=== PATIENT | male | born 1970 | race Hispanic/Latino ===

== ENCOUNTER 2024-08-29 22:27 | Emergency (ER) | payer BC, SELFPAY ==
[2024-08-29 22:27] VITALS: BP 136/75; PULSE 88; RESP 16; TEMP 36.8; O2SAT 98; BMI 29.0
--- NOTE | 2024-08-29 23:25 | EDS_ITS ---
HPI History of Present Illness HPI Narrative: 53-year-old male no significant past medical or surgical history. [id number]. Was at work today tripped try to catch himself when he grabbed the machine to keep himself upright he cut his left hand on the ring and small finger on the dorsal side at the PIP. No other injuries. States his tetanus is up-to-date 4 years ago when he still lived in [place]. Denies any other complaints or injuries. Chief Complaint: Laceration Informant: patient Occured/Mechanism Mechanism/Context: Yes injury Onset/Context/Timing Onset: Today Context: Sudden Onset Timing: Continuous Current Severity: Mild Maximum Severity: Mild Associated Symptoms Associated Symptoms: Negative for Parasthesia, Weakness or Loss of Funtion Narrative Narrative: 53-year-old male does not speak Chilean. 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 He injured his left hand causing a laceration of the small and ring finger at work tonight. Tetanus up-to-date. Tetanus Immunization: <5 years Prior similar symptoms: No Recent Illness/Hospitalization: No PFSH PFSH Medical History no medical history no medical history Allergy/AdvReac Type Severity Reaction Status Date / Time No Known Allergies Allergy Verified 08/29/24 22:29 no surgical history Social History Smoking Status: Unknown if ever smoked ROS ROS ED ROS Narrative Denies recent illness. Constitutional Constitutional ED: Denies chills or fever(s) Eyes Eyes: Denies blurry vision ENT ENT ED: Denies ear pain Cardiovascular Cardiovascular: Denies chest pain Respiratory/Chest Respiratory/Chest: Denies cough Gastrointestinal Gastrointestinal: Denies abdominal pain Genitourinary Genitourinary ED: Denies dysuria Musculoskeletal Musculoskeletal: Denies back pain Integumentary Denies abscess Neurologic Neurologic: Denies headache(s) Psychiatric Psychiatric: Denies anxiety Endocrine Endocrinology: Denies cold intolerance Hematologic/Lymphatic Hematologic/Lymphatic: Denies easy bleeding Allergic/Immunologic Allergic/Immunologic ED: Denies mouth swelling EXAM Physical Exam Narrative Exam Narrative: Well-appearing middle-age male. Vital signs are stable afebrile. H EENT exam unremarkable atraumatic. Pupils round react light. No trauma. No tenderness. No hematoma. Neck nontender. Back nontender. Lungs clear to auscultation bilaterally. Heart regular rate rhythm rate about 88 no murmur. Chest wall ribs nontender. Abdomen soft nontender. Moving all 4 extremities. Neuro vascular intact. Full range of motion. No deformity. Dorsum of his left hand left small and ring finger on the PIP he has 2 lacerations 1 on each finger. The left small finger is a flap laceration about 3 inches in length. The left ring finger is more linear over the PIP and about 1-1/2 to 2 inches in length. Both have mild bleeding. He has full flexion extension. Normal touch sensation. There is no involvement of the joint, bone or extensor tendon. I do not believe there is any involvement of the neurovascular bundle of the digital nerve or artery. Const Vital Signs: 08/29/24 22:27 Temperature 98.2 F Temperature Source Oral Pulse Rate 88 Respiratory Rate 16 Blood Pressure 136/75 H Blood Pressure Mean 95 Pulse Ox 98 Oxygen Delivery Method Room Air Positive well nourished and well developed; Negative for cachectic, contractures or unkempt General Appearance ED: well developed and NAD; Negative for unkempt, cachectic, contractures, cyanotic or diaphoretic Nutritional Appearance: Negative for cachectic HEENT Reports moist mucous membranes normocephalic and atraumatic Eyes PERRL and EOMs intact bilaterally Neck full ROM and supple Chest Wall inspection of chest normal and palpation of chest normal Resp normal respiratory effort and clear to auscultation bilaterally Cardio regular rate, regular rhythm, S1 normal heart sound, S2 normal heart sound and no murmurs GI non-tender, non-distended and no masses Back/Spine no CVA tenderness Extremity full ROM; Negative for normal to inspection Extremity Narrative: Left hand. Dorsum. Left small finger dorsum of the PIP is a flap laceration. Shape like a C. Approximately 3 inches in length. Involves the skin and subcu tissue. No joint. No extensor tendon involvement. Full flexion extension and distal touch sensation. Mild bleeding. Left ring finger dorsum PIP linear laceration about 1/2 to 2 inches. Small bleeding. No foreign body. No tendon or joint involvement. Distally neurovascular intact. Full flexion extension of both. General Extremety ED: Negative for edema General Extremity: Negative for edema Neuro oriented x3, CN's II-XII intact bilaterally, moves all extremities, no focal motor deficits and no sensory deficits noted Sensorium / Orientation: alert, oriented to person, oriented to place and oriented to time Motor Exam: strength 5/5 throughout Psych mental status grossly normal Appearance: Negative for unkempt Skin Lesions: no lesions Rashes: no rashes Trauma: laceration MDM MDM MDM Narrative Medical decision making narrative: 53-year-old male laceration dorsum left ring and small finger. Both were local anesthetized with lidocaine. Both were explored both involve the skin and subcu tissue. Both were cleaned with Shur-Clens. Washed with saline and irrigated. Both were closed using 4-0 Ethilon sutures. The left small finger laceration required 6 simple erupted 4-0 Ethilon sutures. The left ring finger required 3 simple interrupted 4-0 Ethilon sutures. The small finger laceration is about 3 inches. The ring finger laceration was about 2 inches. History & Record Review Discussion w/independent historian: Patient Procedures Lacerations Left small finger laceration repair:: Length: 3 in Depth: Sub Q Shape: Flap Prep: Shure-Clens Laceration repair: Irrigated, Lidocaine, Local and Skin sutures Number of Sutures/[place]: 6 Suture Information: Ethilon, Simple and 4-0 Left ring finger laceration repair:: Length: 2 in Depth: Sub Q Shape: Linear Prep: Shure-Clens Laceration repair: Irrigated, Lidocaine, Local and Skin sutures Number of Sutures/[place]: 3 Suture Information: Ethilon, Simple and 4-0 Discharge Plan Triage Chief Complaint: Laceration ED Provider: Filippo Chery Dx/Rx/DC Orders Clinical Impression: Encounter related to worker's compensation claim, Laceration of left ring finger Instructions: ED Laceration, Hand: All Closures Primary Care Provider: Care Physician,No Primary Referrals: Corporate,Care [Group of Physicians] - 10 Day for suture removal Care Physician,No Primary [Primary Care Provider] - Activity Restrictions/Additional Instructions: Clean your hands thoroughly twice a day with soap and water. Keep dry and clean. Do not let it soak in any dirty water. Any signs of infection such as swelling, pus, fever, red streaks or swelling with redness return. Stitches out in 10 days. Clean daily. Apply antibiotic ointment daily. Keep clean and covered at work. Print Language: Macedonian Disposition Disposition: Home, Self Care
--- NOTE | 2024-08-29 23:34 | ED.RN ---
ATTEMPTED TO CALL [employer] MYSELF AND WAS UNABLE TO REACH A WORKERS COMPENSATION CLAIMS ASSISTANT OR LEAVE A MESSAGE. PT. 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 PT. GIVEN CORBY.
[2024-08-29] MEDS: Lidocaine 1% (20 ml mdv) 20 ML Vial INFILT (23:42)
--- NOTE | 2024-08-29 23:45 | ED.RN ---
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
== END 2024-08-29 23:46 | disposition home or self-care (01) ==
PROVIDERS: Emergency Provider Emergency Medicine; Visit Provider Emergency Medicine
DX: S61.215A Laceration without foreign body of left ring finger without damage to nail, initial encounter (principal); S61.217A Laceration without foreign body of left little finger without damage to nail, initial encounter; W01.198A Fall on same level from slipping, tripping and stumbling with subsequent striking against other object, initial encounter; Y99.0 Civilian activity done for income or pay; Z23 Encounter for immunization
CPT/HCPCS: 12002; 99284

== ENCOUNTER 2024-11-08 04:52 | Observation (INO) | payer BC, SELFPAY ==
[2024-11-08] VITALS (17 sets, daily range): BP systolic 105–130; BP diastolic 69–90; PULSE 67–83; RESP 14–18; TEMP 36.5–36.9; O2SAT 95–100; BMI 31.6
--- NOTE | 2024-11-08 05:06 | RAD_ITS ---
PROCEDURE: CHEST 1 VIEW REASON FOR EXAM: Headache. Dizziness. TECHNIQUE: AP portable view of the chest. COMPARISON: None FINDINGS: Intermediate to low lung volumes. Minimal atelectasis within the lung bases. No focal airspace consolidation, pneumothorax or pleural effusion is seen. Remaining lung markings otherwise appears clear. Heart size and great vessels are within normal limits. The osseous thorax appears intact. EKG wires overlie the chest. RAD/Chest 1 View IMPRESSION: Intermediate to low lung volumes. No focal airspace consolidation. Reading Location: [facility]
--- NOTE | 2024-11-08 05:06 | CT_ITS ---
PROCEDURE: STROKE BRAIN/HEAD WITHOUT CONT REASON FOR EXAM: Neuro deficits. Headache. Dizziness. Nausea. TECHNIQUE: Axial CT images of the head performed without IV contrast enhancement. Sagittal and coronal reconstructed images were performed for better visualization of the horizontal structures. COMPARISON: None. FINDINGS: There is no evidence of mass lesion, midline shift, or intracranial hemorrhage. The ventricles and extra-axial spaces are age-appropriate. Trace chronic microvascular ischemic changes involving the periventricular white matter. The coker-white interface appears preserved. Posterior fossa structures are within normal limits. The osseous structures, as visualized, appears within normal limits. Trace mucosal thickening within the inferior right maxillary sinus. Remaining visualized paranasal sinuses and mastoid air cells are well pneumatized. CT/STROKE Brain/Head without Cont IMPRESSION: 1. No acute intracranial process identified. If symptoms persist, or if clinic ally indicated, consider MRI. 2. Age-appropriate involutional and trace chronic microvascular ischemic change s, as detailed above. 3. Trace mucosal thickening within the inferior right maxillary sinus. Findings reported to Dr. Victor on 07/2025 at 5:37 a.m., per stroke protocol One or more dose reduction techniques were used (e.g., Automated exposure contr ol, adjustment of the mA and/or kV according to patient size, use of iterative reconstruction technique). Reading [facility]
--- NOTE | 2024-11-08 05:06 | EKG12_ITS ---
Test Reason : STROKE LIKE SYMPTOMS Blood Pressure : */* mmHG Vent. Rate : 77 BPM Atrial Rate : 77 BPM P-R Int : 150 ms QRS Dur : 106 ms QT Int : 412 ms P-R-T Axes : 2 -10 8 degrees QTcB Int : 466 ms Normal sinus rhythm Cannot rule out Inferior infarct , age undetermined Abnormal ECG Confirmed by Bijan Reich ([id number]), book editor AILIN HUTCHINSON ([id number]) on 11/09/2024 11:18:38 AM Referred By: Confirmed By: Bijan Reich
--- NOTE | 2024-11-08 05:07 | CT_ITS ---
PROCEDURE: STROKE CTA HEAD AND NECK W/CON REASON FOR EXAM: Neuro deficits. Headache. TECHNIQUE: Axial CTA images of the head and neck performed with IV contrast enhancement. Sagittal and coronal reconstructed 3D images were performed for better visualization of the vasculature. COMPARISON: Correlation with non contrast head CT performed 11/08/2024 FINDINGS: Aortic Arch: Normal size and branching pattern. No significant atherosclerotic plaque. Brachiocephalic and Subclavians: Unremarkable RIGHT Carotid: Right CCA: Unremarkable. Right ICA: Unremarkable. Maximum stenosis (NASCET): No significant stenosis. Right ECA: Unremarkable. LEFT Carotid: Left CCA: Tortuosity involving the origin. No hemodynamically significant stenosis Left ICA: Unremarkable. Maximum stenosis (NASCET): No significant stenosis. Left ECA: Unremarkable. Vertebrals: Left vertebral artery is slightly dominant. Arise from the subclavians. Both vertebrals form the basilar. RIGHT Vertebral: Unremarkable. LEFT Vertebral: Unremarkable. Mild venous contamination. No intracranial aneurysms or large vascular malformations are identified. Anterior cerebral arteries: Unremarkable. Middle cerebral arteries: Unremarkable. Basilar artery: Unremarkable. Posterior cerebral arteries: Unremarkable. Other major branches of the posterior circulation: Unremarkable. Major venous structures: Unremarkable. Other findings: No lymphadenopathy. Mild mucosal thickening within the inferior right maxillary sinus. Minimal ground-glass opacities within the lung apices. Bones are unremarkable. CT/STROKE CTA Head AND Neck W/Con IMPRESSION: 1. No significant hemodynamic stenosis or vascular occlusion within the [place] 2. No significant hemodynamic stenosis or vascular occlusion involving the morris tid arteries bilaterally. 3. Left vertebral artery is slightly dominant. 4. Mild mucosal thickening within the inferior right maxillary sinus. One or more dose reduction techniques were used (e.g., Automated exposure contr ol, adjustment of the mA and/or kV according to patient size, use of iterative reconstruction technique). Reading Location: [facility]
--- NOTE | 2024-11-08 05:16 | EDS_ITS ---
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 Patient states that yesterday he had a headache and then he woke up around 4 AM and noted that the room was spinning was complaint dizziness. He states that nothing like this is ever happened before. Patient states that he went to bed around midnight and was overall well and had no complaints. He states that he is nauseous with the dizziness things or not improving therefore he came here for the valuation management. PFSH PFS Medical History no medical history Home Medications ?Medication ?Instructions ?Recorded ?Last Taken ?Type NK 11/08/24 Unknown History Allergy/AdvReac Type Severity Reaction Status Date / Time No Known Allergies Allergy Verified 11/08/24 04:54 Family History no significant family his Surgical History no surgical history Social History Smoking Status: Never smoker ROS ROS ED ROS Narrative Constitutional: Complains of dizziness as noted above denies headache currently denies any fevers, chills Eyes: Denies change in vision double vision blurry vision Cardiovascular: Denies chest pain or palpitation Respiratory: Denies coughing wheezing shortness of breath Abdomen: Denies abdominal pain nausea vomit diarrhea : Denies any urinary Neurological: Denies numbness, weakness, tingling Musculoskeletal: Denies back pain Skin: Denies rashes or lesions EXAM Physical Exam Narrative Exam Narrative: General: Patient was lying in bed rest comfortably did not appear to be in acute distress Head: Atraumatic, normocephalic Eyes: PERRL bilaterally, EOMI bilaterally, no conjunctival injection noted Neck: Soft, supple, trachea midline Cardiovascular: Regular rate and rhythm no murmurs gallops rubs noted Respiratory: Clear to auscultation bilaterally Abdomen: Soft, nondistended, no tenderness palpation Extremities: +5/5 strength noted in the bilateral upper and lower extremities, radial pulses +2/4 in the bilateral extremities Neurological: Patient following commands knew that he was at the hospital year is 2024 and we are in winter. NIH of 0 GCS 15 Skin: Warm, dry, intact no rashes or lesions noted Const Vital Signs: 11/08/24 04:54 11/08/24 05:12 11/08/24 05:13 Temperature 97.9 F 97.9 F Temperature Source Oral Oral Pulse Rate 83 70 Pulse Rate [Lying] Pulse Rate [Sitting (for 1 minute prior to obtaining)] Pulse Rate [Standing (for 1 minute prior to obtaining)] Respiratory Rate 18 16 Blood Pressure 126/82 H 120/76 Blood Pressure [Lying] Blood Pressure [Sitting (for 1 minute prior to obtaining)] Blood Pressure [Standing (for 1 minute prior to obtaining)] Blood Pressure Mean 96 90 Blood Pressure Mean [Lying] Blood Pressure Mean [Sitting (for 1 minute prior to obtaining)] Blood Pressure Mean [Standing (for 1 minute prior to obtaining)] Pulse Ox 96 98 98 Oxygen Delivery Method Room Air Room Air Room Air 11/08/24 05:15 11/08/24 05:36 11/08/24 06:06 Temperature 97.9 F Temperature Source Oral Pulse Rate 72 80 82 Pulse Rate [Lying] Pulse Rate [Sitting (for 1 minute prior to obtaining)] Pulse Rate [Standing (for 1 minute prior to obtaining)] Respiratory Rate 18 18 18 Blood Pressure 120/76 119/90 H 130/88 H Blood Pressure [Lying] Blood Pressure [Sitting (for 1 minute prior to obtaining)] Blood Pressure [Standing (for 1 minute prior to obtaining)] Blood Pressure Mean 90 99 102 Blood Pressure Mean [Lying] Blood Pressure Mean [Sitting (for 1 minute prior to obtaining)] Blood Pressure Mean [Standing (for 1 minute prior to obtaining)] Pulse Ox 98 98 97 Oxygen Delivery Method Room Air Room Air Room Air 11/08/24 06:22 11/08/24 06:30 11/08/24 06:32 Temperature 98.0 F Temperature Source Pulse Rate 73 73 Pulse Rate [Lying] 70 Pulse Rate [Sitting (for 1 minute prior to obtaining)] 72 Pulse Rate [Standing (for 1 minute prior to obtaining)] 77 Respiratory Rate 18 18 Blood Pressure 111/74 111/74 Blood Pressure [Lying] 116/85 H Blood Pressure [Sitting (for 1 minute prior to obtaining)] 126/90 H Blood Pressure [Standing (for 1 minute prior to obtaining)] 121/89 H Blood Pressure Mean 86 86 Blood Pressure Mean [Lying] 95 Blood Pressure Mean [Sitting (for 1 minute prior to obtaining)] 102 Blood Pressure Mean [Standing (for 1 minute prior to obtaining)] 99 Pulse Ox 100 98 Oxygen Delivery Method Room Air 11/08/24 07:00 Temperature Temperature Source Pulse Rate 78 Pulse Rate [Lying] Pulse Rate [Sitting (for 1 minute prior to obtaining)] Pulse Rate [Standing (for 1 minute prior to obtaining)] Respiratory Rate 17 Blood Pressure 105/76 Blood Pressure [Lying] Blood Pressure [Sitting (for 1 minute prior to obtaining)] Blood Pressure [Standing (for 1 minute prior to obtaining)] Blood Pressure Mean 85 Blood Pressure Mean [Lying] Blood Pressure Mean [Sitting (for 1 minute prior to obtaining)] Blood Pressure Mean [Standing (for 1 minute prior to obtaining)] Pulse Ox 98 Oxygen Delivery Method Room Air MDM MDM MDM Narrative Medical decision making narrative: Patient is a 54-year-old male who presented to the emergency department with a chief complaint of dizziness and his symptoms are not exacerbated by turning his head left to right. On the differential diagnose includes Melamin to the ischemic stroke, posterior circulation stroke, hemorrhagic stroke, hypoglycemia. Once workup is obtained reviewed he will be reevaluated. Patient CBC reviewed showed no evidence leukocytosis white blood count normal at 6.5, hemoglobin 14, platelet count was noted be 245. Patient INR normal 1, PT of 13.4, sodium normal 139, potassium normal at 3.5, creatinine normal at 0.65. Patient troponin was normal at 13. Patient's EKG reviewed and independently interpreted by myself showed sinus rhythm with a rate of 77 bpm. Patient's khngb-[id number] glucose was noted to be 105. Patient CT head and brain without contrast reviewed and showed no acute intracranial processes there are age- appropriate involutional and chronic trace chronic microvascular ischemic rolando nges noted. Patient's CTA head and neck reviewed showed no evidence of large vessel occlusion left vertebral artery is slightly dominant. Patient chest x- ray reviewed by myself by radiology showed no acute cardiopulmonary processes. After significant amount time with doctor of nurse anesthesia and the teleneurologist secondary to language barrier which was completed at around 6:14 AM the patient is not a candidate for tenecteplase however they are recommending admission for MRI for posterior circulation stroke versus vertigo versus vestibular neuritis. Patient was given 325 mg of aspirin. Patient case will be discussed with hospitalist for admission. Discussed case with hospitalist Dr. Mathur who came down to evaluate the patient at bedside will except patient for admission. Patient notified is a greeable this plan all course concerns answered Lab Data Labs: Laboratory Results - last 24 hr 11/08/24 11/08/24 05:10 05:11 WBC 6.5 RBC 4.28 L Hgb 14.0 Hct 39.8 L MCV 93.0 MCH 32.7 H MCHC 35.2 RDW Std Deviation 42.5 RDW Coeff of Ike 12.6 Plt Count 245 MPV 8.6 Immature Gran % (Auto) 0.500 Neut % (Auto) 51.8 Lymph % (Auto) 32.8 [place] % (Auto) 12.7 H Eos % (Auto) 1.7 Baso % (Auto) 0.5 Absolute Neuts (auto) 3.4 Absolute Lymphs (auto) 2.14 Nucleated RBC % 0 PT 13.4 INR 1.0 APTT 29.6 Sodium 139 Potassium 3.5 Chloride 107 Carbon Dioxide 25.0 Anion Gap 6 BUN 19 H Creatinine 0.65 L Estim Creat Clear Calc 138.72 Est GFR (MDRD) Af Amer 165 Est GFR (MDRD) Non-Af 136 BUN/Creatinine Ratio 29.4 H Glucose 110 H Calcium 8.3 L Troponin I High Sens 13 POC Glucose 105 Radiography Diagnostic Testing: Clinical Impression(s) from Imaging Studies Brain CT 11/08/24 05:06 IMPRESSION: 1. No acute intracranial process identified. If symptoms persist, or if clinically indicated, consider MRI. 2. Age-appropriate involutional and trace chronic microvascular ischemic changes, as detailed above. 3. Trace mucosal thickening within the inferior right maxillary sinus. Findings reported to Dr. Victor on 07/2025 at 5:37 a.m., per stroke protocol One or more dose reduction techniques were used (e.g., Automated exposure control, adjustment of the mA and/or kV according to patient size, use of iterative reconstruction technique). Reading Location: [facility] Chest X-Ray 11/08/24 05:06 IMPRESSION: Intermediate to low lung volumes. No focal airspace consolidation. Reading Location: [facility] Head/Neck CTA 11/08/24 05:07 IMPRESSION: 1. No significant hemodynamic stenosis or vascular occlusion within the [id number] 2. No significant hemodynamic stenosis or vascular occlusion involving the carotid arteries bilaterally. 3. Left vertebral artery is slightly dominant. 4. Mild mucosal thickening within the inferior right maxillary sinus. One or more dose reduction techniques were used (e.g., Automated exposure control, adjustment of the mA and/or kV according to patient size, use of iterative reconstruction technique). Reading Location: [facility] Discharge Plan Triage Chief Complaint: Dizziness ED Provider: Farrukh Victor Dx/Rx/DC Orders Clinical Impression: Dizziness Prescriptions: No Action NK Primary Care Provider: Care Physician,No Primary Referrals: Care Physician,No Primary [Primary Care Provider] - Print Language: Welsh Disposition Disposition: Acute Care [facility]
[2024-11-08 05:19] LABS: Absolute Lymphocyte Count 2.14 X10^3/uL (0.83-4.51); Absolute Neutrophil Count 3.4 X10^3/uL (2.0-7.7); Basophil# 0.03 X10^3/uL; Basophil% 0.5 % (0-1); Eosinophil# 0.11 X10^3/uL; Eosinophils% 1.7 % (0-5); Hematocrit 39.8 % (40-54); Lymphocyte # 2.14 X10^3/ul (0.83-4.51); Lymphocyte % 32.8 % (19-41); Mean Corp Hgb Conc 35.2 g/dL (32-36); Mean Corpuscular Hgb 32.7 pg (27.0-32.0); Mean Platelet Vol. 8.6 fl (6.2-12.0); Monocyte# 0.83 X10^3/uL; Monocyte% 12.7 % (0-10); NRBC Flagged by Analyzer 0 % (0-5); Neutrophil # 3.38 X10^3/uL (2.7-7.7); Neutrophil % 51.8 % (47-70); Platelet Count 245 K/mm3 (150-450); RBC Distribution Width CV 12.6 % (11.6-14.6); RBC Distribution Width SD 42.5 fl (35.1-43.9); Red Blood Count 4.28 M/mm3 (4.6-6.2); White Blood Count 6.5 K/mm3 (4.4-11.0)
[2024-11-08 05:42] LABS: Anion Gap 6 (5-15); BUN 19 mg/dL (7-18); BUN/Creat Ratio 29.4 RATIO (10-20); Calcium,Total 8.3 mg/dL (8.5-10.1); Chloride 107 mmol/L (98-107); Creatinine, Serum 0.65 mg/dL (0.70-1.30); EST Glomerular Filtration Rate 136 mL/min (>60); Est Glom Filt Rate - Afr Amer 165 mL/min (>60); Estimated Creatinine Clearance 138.72 ml/min; Glucose 110 mg/dL (74-106); Potassium 3.5 mmol/L (3.5-5.1); Sodium Level 139 mmol/L (136-145); Troponin-I HS 13 pg/mL (3.0-78.0)
[2024-11-08 05:49] LABS: Bedside Glucose 105 mg/dL (74-106)
[2024-11-08 05:49] LABS: Prothrombin Time (Protime)PT. 13.4 SECONDS (11.7-14.9)
[2024-11-08 06:14] LABS: Partial Thromboplast Time 29.6 Seconds (24.1-36.2)
[2024-11-08] MEDS: Aspirin 325 MG Tablet PO (06:30)
--- NOTE | 2024-11-08 07:46 | MRI_ITS ---
PROCEDURE: BRAIN WITHOUT CONTRAST REASON FOR EXAM: 54-year-old male, dizziness/vertigo. TECHNIQUE: Multiplanar, multisequence MRI of the brain without intravenous gadolinium-based contrast. CONTRAST: None. COMPARISON: CT head, CTA head and neck earlier same day. FINDINGS: The ventricles, sulci, and cisterns are age-appropriate in size. There is no evidence of intracranial bleed or focal infarction. There is no midline shift, mass effect, or extra-axial collection. No area of restricted diffusion are identified on DWI images. No abnormal T2 bright signal in the white matter is identified. Minimal punctate T2 white matter hyperintensities, appropriate for patient age. The basal ganglia, wai, pituitary, corpus callosum and cerebellum appear normal. The visualized paranasal sinuses, mastoids, and orbits are unremarkable. The flow voids of the major intracranial vessels are patent. The visualized extracranial structures, within limits of technique, are not otherwise remarkable. MRI/Brain without Contrast IMPRESSION: Unremarkable brain MRI. Reading Location: [id number]
--- NOTE | 2024-11-08 07:47 | HP.PCM.HOS_ITS ---
[facility] - General General Date of Service: 11/08/24 Chief Complaint: dizziness. HPI Narrative SAMARA BLACKMON, is a 54 M who presents with with dizziness. Symptoms began at 4 AM. Patient is has a feeling of spinning and has some had some nausea. Never had the symptoms before presented to the emergency room. Had a CAT scan that was unremarkable. Seen by neurology recommended MRI as a they feel that this is more likely vertigo but cannot rule out posterior circulation stroke. Patient does not speak Chadian and with his permission I was able to speak to him and some limited Slovenian but also you using Google translate. PFS Medical History no medical history no medical history Home Medications ?Medication ?Instructions ?Recorded ?Last Taken ?Type NK 11/08/24 Unknown History Allergy/AdvReac Type Severity Reaction Status Date / Time No Known Allergies Allergy Verified 11/08/24 04:54 Family History no significant family his Surgical History no surgical history Social History (Updated 11/08/24 @ 07:[address] Armando Mathur, DO) Smoking Status: Never smoker alcohol intake: never substance use type: does not use ROS ROS Narrative States that he gets some pressure in his teeth. No fevers. No blurry vision. No chest or abdominal pain. All review of systems were negative except as mentioned above in the history of present illness and the other review of systems. Vital Signs Vital Signs Vital Signs: 11/08/24 04:54 11/08/24 05:12 11/08/24 05:13 Temperature 36.6 C 36.6 C Temperature Source Oral Oral Pulse Rate 83 70 Pulse Rate [Lying] Pulse Rate [Sitting (for 1 minute prior to obtaining)] Pulse Rate [Standing (for 1 minute prior to obtaining)] Respiratory Rate 18 16 Blood Pressure 126/82 H 120/76 Blood Pressure [Lying] Blood Pressure [Sitting (for 1 minute prior to obtaining)] Blood Pressure [Standing (for 1 minute prior to obtaining)] Blood Pressure Mean 96 90 Blood Pressure Mean [Lying] Blood Pressure Mean [Sitting (for 1 minute prior to obtaining)] Blood Pressure Mean [Standing (for 1 minute prior to obtaining)] Pulse Ox 96 98 98 Oxygen Delivery Method Room Air Room Air Room Air 11/08/24 05:15 11/08/24 05:36 11/08/24 06:06 Temperature 36.6 C Temperature Source Oral Pulse Rate 72 80 82 Pulse Rate [Lying] Pulse Rate [Sitting (for 1 minute prior to obtaining)] Pulse Rate [Standing (for 1 minute prior to obtaining)] Respiratory Rate 18 18 18 Blood Pressure 120/76 119/90 H 130/88 H Blood Pressure [Lying] Blood Pressure [Sitting (for 1 minute prior to obtaining)] Blood Pressure [Standing (for 1 minute prior to obtaining)] Blood Pressure Mean 90 99 102 Blood Pressure Mean [Lying] Blood Pressure Mean [Sitting (for 1 minute prior to obtaining)] Blood Pressure Mean [Standing (for 1 minute prior to obtaining)] Pulse Ox 98 98 97 Oxygen Delivery Method Room Air Room Air Room Air 11/08/24 06:22 11/08/24 06:30 11/08/24 06:32 Temperature 36.7 C Temperature Source Pulse Rate 73 73 Pulse Rate [Lying] 70 Pulse Rate [Sitting (for 1 minute prior to obtaining)] 72 Pulse Rate [Standing (for 1 minute prior to obtaining)] 77 Respiratory Rate 18 18 Blood Pressure 111/74 111/74 Blood Pressure [Lying] 116/85 H Blood Pressure [Sitting (for 1 minute prior to obtaining)] 126/90 H Blood Pressure [Standing (for 1 minute prior to obtaining)] 121/89 H Blood Pressure Mean 86 86 Blood Pressure Mean [Lying] 95 Blood Pressure Mean [Sitting (for 1 minute prior to obtaining)] 102 Blood Pressure Mean [Standing (for 1 minute prior to obtaining)] 99 Pulse Ox 100 98 Oxygen Delivery Method Room Air 11/08/24 07:00 Temperature Temperature Source Pulse Rate 78 Pulse Rate [Lying] Pulse Rate [Sitting (for 1 minute prior to obtaining)] Pulse Rate [Standing (for 1 minute prior to obtaining)] Respiratory Rate 17 Blood Pressure 105/76 Blood Pressure [Lying] Blood Pressure [Sitting (for 1 minute prior to obtaining)] Blood Pressure [Standing (for 1 minute prior to obtaining)] Blood Pressure Mean 85 Blood Pressure Mean [Lying] Blood Pressure Mean [Sitting (for 1 minute prior to obtaining)] Blood Pressure Mean [Standing (for 1 minute prior to obtaining)] Pulse Ox 98 Oxygen Delivery Method Room Air Weight Weight: 91.8 kg Body Mass Index (BMI) 31.6 Physical Exam Const alert and no apparent distress HEENT normocephalic, head/scalp atraumatic and hearing grossly normal bilaterally Eyes Eyes Narrative: Slight bilateral nystagmus that fatigues. Patient had reproducible dizziness with lateral gaze but worse on the left. Neck no lymphadenopathy Resp normal respiratory effort and no retractions Cardio regular rate, regular rhythm, S1 normal heart sound and S2 normal heart sound GI normal to inspection, nondistended, normoactive bowel sounds, soft to palpation, non-tender and non-distended Extremity normal to inspection and no clubbing, cyanosis or edema Neuro CN's II-XII intact bilaterally, moves all extremities and no focal motor deficits Neuro Narrative: [place] dizzy upon standing at next at bedside. Sensorium / Orientation: awake, alert, oriented to person, oriented to place and oriented to time Speech: speech normal Motor Exam: strength 5/5 throughout Results Lab / Micro Data 11/08/24 05:11 11/08/24 05:11 Labs: Laboratory Results - last 24 hr 11/08/24 05:10: POC Glucose 105 11/08/24 05:11: WBC 6.5, RBC 4.28 L, Hgb 14.0, Hct 39.8 L, MCV 93.0, MCH 32.7 H, MCHC 35.2, RDW Std Deviation 42.5, RDW Coeff of Ike 12.6, Plt Count 245, MPV 8.6, Immature Gran % (Auto) 0.500, Neut % (Auto) 51.8, Lymph % (Auto) 32.8, [place] % (Auto) 12.7 H, Eos % (Auto) 1.7, Baso % (Auto) 0.5, Absolute Neuts (auto) 3.4, Absolute Lymphs (auto) 2.14, Nucleated RBC % 0, PT 13.4, INR 1.0, APTT 29.6, Sodium 139, Potassium 3.5, Chloride 107, Carbon Dioxide 25.0, Anion Gap 6, BUN 19 H, Creatinine 0.65 L, Estim Creat Clear Calc 138.72, Est GFR (MDRD) Af Amer 165, Est GFR (MDRD) Non-Af 136, BUN/Creatinine Ratio 29.4 H, Glucose 110 H, C alcium 8.3 L, Troponin I High Sens 13 Imaging Radiology Impression Brain CT 11/08/24 05:06 IMPRESSION: 1. No acute intracranial process identified. If symptoms persist, or if clinically indicated, consider MRI. 2. Age-appropriate involutional and trace chronic microvascular ischemic changes, as detailed above. 3. Trace mucosal thickening within the inferior right maxillary sinus. Findings reported to Dr. Victor on 07/2025 at 5:37 a.m., per stroke protocol One or more dose reduction techniques were used (e.g., Automated exposure control, adjustment of the mA and/or kV according to patient size, use of iterative reconstruction technique). Reading Location: [facility] Chest X-Ray 11/08/24 05:06 IMPRESSION: Intermediate to low lung volumes. No focal airspace consolidation. Reading Location: [facility] Head/Neck CTA 11/08/24 05:07 IMPRESSION: 1. No significant hemodynamic stenosis or vascular occlusion within the [id number] 2. No significant hemodynamic stenosis or vascular occlusion involving the carotid arteries bilaterally. 3. Left vertebral artery is slightly dominant. 4. Mild mucosal thickening within the inferior right maxillary sinus. One or more dose reduction techniques were used (e.g., Automated exposure control, adjustment of the mA and/or kV according to patient size, use of iterative reconstruction technique). Reading [facility] Assessment & Plan Assessment/Plan (1) Dizziness: PLAN: [place] to be more benign paroxysmal positional vertigo. Seen by neurology recommends an MRI. If MRI is negative no additional stroke workup would be necessary. Will start the patient on as needed meclizine. Charges/Coding Visit Charges Inpatient E&M: 33787 Init Hosp L2
[2024-11-08] MEDS: Meclizine HCl 25 MG Tablet PO (12:53)
[2024-11-08] MEDS: Zolpidem Tartrate 5 MG Tablet PO (22:48)
[2024-11-09 03:30] VITALS: BP 101/68; PULSE 68; RESP 18; TEMP 36.6; O2SAT 99
[2024-11-09 05:00] VITALS: BMI 31.6
[2024-11-09 06:07] LABS: Cholesterol 185 mg/dL (200); High Density Lipoprotein 44 mg/dL; Triglycerides 139 mg/dL; Very Low Density Lipoprotein 28 mg/dL (5-40)
[2024-11-09 08:34] VITALS: BP 100/64; PULSE 90; RESP 18; TEMP 36.9; O2SAT 96
--- NOTE | 2024-11-09 09:31 | PCM.DC.SUM ---
Providers Date of Admission: 11/08/24 Primary Care Physician: Nicole Primary Care Phys Consultations 11/08/24 08:34 Consult: Tele-Neurology Routine Consulting Provider: [facility] Reason for Consult: Acute Ischemic Stroke/TIA EMERGENT Consult: No MD Notified: Yes Date Notified: 11/08/24 Time Notified: 07:40 Method of Notification: ED Physician Initiated Nursing Unit Staff Notify [facility] of Tele-Neurology Consult: Yes Reason For Visit: VERTIGO Diagnosis Discharge Diagnosis (1) Dizziness: Status: Acute Code(s): R42 - Dizziness and giddiness Plan: [place] to be more benign paroxysmal positional vertigo. MRI brain was negative. Symptoms have improved. Will start the patient on as needed meclizine. Medications at Discharge Home Medications meclizine 25 mg tablet 25 mg PO TID PRN PRN Dizziness #10 tabs 11/09/24 trazodone 50 mg tablet 50 mg PO QHS PRN insomnia #10 tabs 11/09/24 Hospital Course Operations None Procedures None Weight / BMI Weight Weight: 91.8 kg Body Mass Index (BMI) 31.6 ABG / Lab / Microbiology Data 11/08/24 05:11 11/08/24 05:11 Laboratory: Laboratory Results - last 24 hr 11/09/24 05:22: Triglycerides 139, Cholesterol 185, LDL Cholesterol 113, VLDL Cholesterol 28, HDL Cholesterol 44 Radiography Diagnostic Testing: Radiology Impression Brain MRI 11/08/24 07:46 IMPRESSION: Unremarkable brain MRI. Reading Location: [id number] D/C Instructions DC O2, CPAP, BIPAP Needs Home O2 Discharge instructions: No Meaningful Use Info Meaningful Use Meaningful Use Diagnoses (Choose all that apply): None applicable Ischemic Stroke Statin Dosing Therapy Reference: STATIN DOSE THERAPY REFERENCE: * Patients > 75 years receive moderate or high dose statin therapy. * Patients 75 years or YOUNGER should receive HIGH intensity statin dose unless contraindicated. You will be required to document reason for non-treatment if statin daily dose does not meet guidelines. HIGH DOSE STATIN THERAPY DAILY Atorvastatin > than or = to 40 mg Rosuvastatin > than or = to 20 mg Amlodipine + Atorvastatin > than or = to 2.5/40 mg Ezetimibe + Simvastatin 10/80 mg Simvastatin 80mg Discharge Plan Admission Admit Date/Time: 11/08/24 07:38 Attending Provider: Armando Mathur Primary Care Provider: Care Physician,No Primary Instructions Additional Instructions / Restrictions: Tuvo mareos por v?rtigo del o?do interno. No sufri? beverley?n derrame cerebral y la resonancia magn?sushma de bonilla cerebro no lo demostr?. Si esto vuelve a suceder, puede dave un medicamento llamado meclizina para ayudar. Aunque es posible que los s?ntomas no vuelvan a ocurrir. Te recomiendo que vayas al dentista por la escupida de parul. Sospecho que probablemente sea por tus dientes, phoebe no vi nada cuando brina? fede. Puede dave Trazodone seg?n sea necesario para el insomnio. Discharge Orders/Prescriptions Prescriptions: New meclizine 25 mg Tablet 25 mg PO TID PRN PRN (Reason: Dizziness) Qty: 10 0RF trazodone 50 mg tablet 50 mg PO QHS PRN (Reason: insomnia) Qty: 10 0RF Referrals / Follow Up: MAGI RIDER D[facility] [Non-Staff] - Care Physician,No Primary [Primary Care Provider] - Disposition Disposition (needs filled in before D/C Order can be placed): Home, Self Care Charges/Coding Visit Charges Inpatient E&M: 06025 Disch Hosp
--- NOTE | 2024-11-09 10:26 | CASEMGMT ---
Social Work RN stating pt needs to be connected with PCP and dentist. SW provided written information (Kiswahili language) on [facility] for PCP and dental care. GEOFFREY also provided [facility] PCP list. RADHA Mcgee
[2024-11-09 10:59] VITALS: BP 100/64; PULSE 90; RESP 16; TEMP 36.9; O2SAT 96
== END 2024-11-09 11:00 | disposition home or self-care (01) ==
LOC: ED 07:46 → PCU 08:00 → MS2 11:54
PROVIDERS: Emergency Provider Emergency Medicine
DX: R42 Dizziness and giddiness (principal); R11.0 Nausea; R94.31 Abnormal electrocardiogram [ECG] [EKG]
CPT/HCPCS: 36415; 70450; 70496; 70498; 70551; 71045; 80048; 80061; 82962; 84484; 85025; 85610; 85730; 93005; 99221; 99285; Q9967; A4216; G0378

== ENCOUNTER 2025-04-08 23:25 | Emergency (ER) | payer BC, SELFPAY ==
[2025-04-08 23:27] VITALS: BP 124/76; PULSE 70; RESP 16; TEMP 36.7; O2SAT 99; BMI 30.4
--- NOTE | 2025-04-08 23:43 | CT_ITS ---
PROCEDURE: ABDOMEN/PELVIS W IV CONT ONLY 04/08/2025 REASON FOR EXAM: ABDOMINAL PAIN TECHNIQUE: ABDOMEN/PELVIS W IV CONT ONLY Coronal and Sagittal reconstruction series were provided. CONTRAST: Isovue 370 VOLUME: 93 mL One or more dose reduction techniques were used (e.g., Automated exposure control, adjustment of the mA and/or kV according to patient size, use of iterative reconstruction technique. RADIATION DOSE SUMMARY: CTDlvol: 21.20 mGy DLP: 1078.19 mGycm COMPARISON: None. FINDINGS: The lung bases are clear. The peripheral soft tissues are unremarkable. Mild degenerative changes of the spine. Normal caliber abdominal aorta. No suspicious lymphadenopathy. The liver is unremarkable. Cholelithiasis. The pancreas, spleen, and adrenals are unremarkable. Symmetric enhancement of the bilateral kidneys. No hydroureteronephrosis. The urinary bladder is unremarkable. The reproductive organs are unremarkable. Scattered colonic diverticuli. No surrounding inflammation. Normal caliber large and small bowel. CT/Abdomen/Pelvis W IV Cont ONLY IMPRESSION: Cholelithiasis. Reading Location: [place] [id number]
--- NOTE | 2025-04-08 23:47 | EX.ED.DYSGE1 ---
HPI History of Present Illness Chief Complaint: Abd Pain Narrative Narrative: Chief complaint and HPI: Epigastric abdominal pain. 54-year-old male with no significant past medical history presents for evaluation of epigastric abdominal pain. Patient states he has been having episodic epigastric abdominal pain for the past week. Not associated with eating. Denies any history of gallbladder disorder. States he occasionally eats spicy foods but has not in several days. Denies any daily alcohol abuse. Denies any fever, chills, shortness of breath, chest pain, nausea, vomiting, diarrhea, constipation, dysuria. Review of systems: See HPI Medications: As listed on the chart Allergies: As listed on the chart PFSH: Per chart Vital signs: As listed on the chart. Reviewed. Physical exam: Gen: A&O x3, NAD Head: Normocephalic, atraumatic Eyes: No sclera icterus, conjunctiva clear ENT: Moist mucous membranes Neck: Trachea midline, No JVD CV: RRR, no murmurs, no peripheral edema Resp: Lungs CTA BL, no w/r/c GI: Abd soft, non-distended, tender to palpation in the epigastrium, no r/r/g Musc: Full ROM, no deformity Skin: Warm, dry Neuro: Alert, oriented, grossly intact, sensation intact Psych: Cooperative, appropriate mood and affect [facility] Home Medications ?Medication ?Instructions ?Recorded ?Last Taken ?Type etodolac 500 mg tablet 500 mg PO BID #60 tabs 12/12/24 Unknown Rx ondansetron 4 mg disintegrating 4 mg PO Q8H PRN PRN Nausea #10 tabs 04/09/25 Unknown Rx tablet Allergy/AdvReac Type Severity Reaction Status Date / Time No Known Allergies Allergy Verified 04/08/25 23:32 Surgical History S/P open reduction and internal fixation (ORIF) of fracture of right patella Social History Smoking Status: Never smoker alcohol intake: never substance use type: does not use EXAM Physical Exam Const Vital Signs: 04/08/25 23:27 04/09/25 02:02 04/09/25 04:00 Temperature 98.1 F Temperature Source Oral Pulse Rate 70 63 61 Respiratory Rate 16 15 16 Blood Pressure 124/76 H 111/72 115/78 Blood Pressure Mean 92 85 90 Pulse Ox 99 98 99 Oxygen Delivery Method Room Air Room Air Room Air 04/09/25 04:23 Temperature 98.3 F Temperature Source Pulse Rate 61 Respiratory Rate 16 Blood Pressure 115/78 Blood Pressure Mean 90 Pulse Ox 99 Oxygen Delivery Method MDM MDM MDM Narrative Medical decision making narrative: 54-year-old male with no significant past medical history presents for evaluation of epigastric abdominal pain. Differential diagnosis includes but is not limited to pancreatitis, GERD, PUD, cholecystitis, choledocholithiasis. NS bolus, morphine, Pepcid, Zofran ordered for symptoms. Abdominal pain workup ordered including CT abdomen pelvis. CBC without leukocytosis or anemia. CMP unremarkable. Lipase mildly elevated at 99.CT abdomen pelvis shows cholelithiasis without acute cholecystitis. Pancreas unremarkable. On reevaluation, patient states his pain has resolved. He was updated of all his results and the findings. He was told he needs to return back to the ED if symptoms recur or worsen or change. He confirmed understanding. Follow-up with general surgery and PCP. Suspect patient's symptoms are secondary to biliary colic. Official timber management technician was used throughout the entire encounter. Impression: 1. Cholelithiasis with biliary colic Lab Data Labs: Laboratory Results - last 24 hr 04/09/25 00:13 WBC 6.6 RBC 4.02 L Hgb 13.3 Hct 38.7 L MCV 96.3 H MCH 33.1 H MCHC 34.4 RDW Std Deviation 44.0 H RDW Coeff of Ike 12.4 Plt Count 231 MPV 9.0 Immature Gran % (Auto) 0.300 Neut % (Auto) 59.5 Lymph % (Auto) 27.4 [place] % (Auto) 10.2 H Eos % (Auto) 2.3 Baso % (Auto) 0.3 Absolute Neuts (auto) 3.9 Absolute Lymphs (auto) 1.81 Nucleated RBC % 0 Sodium 136 Potassium 3.7 Chloride 104 Carbon Dioxide 24.2 Anion Gap 8 BUN 16 Creatinine 0.79 Estim Creat Clear Calc 112.00 Est GFR (MDRD) Non-Af 105 BUN/Creatinine Ratio 20.2 H Glucose 115 H Calcium 8.2 Total Bilirubin 0.49 Direct Bilirubin 0.19 AST 26 ALT 18 Alkaline Phosphatase 107 Total Protein 6.8 Albumin 4.0 Globulin 2.8 Lipase 99 H Radiography Diagnostic Testing: Clinical Impression(s) from Imaging Studies Abdomen/Pelvis CT 04/08/25 23:43 IMPRESSION: Cholelithiasis. Reading Location: [id number] Discharge Plan Triage Chief Complaint: Abd Pain ED Provider: Ottoniel Holloway Dx/Rx/DC Orders Clinical Impression: Cholelithiasis, Biliary colic Instructions: ED Gallstones with Biliary Colic Prescriptions: New ondansetron 4 mg tablet,disintegrating 4 mg PO Q8H PRN PRN (Reason: Nausea) Qty: 10 0RF No Action etodolac 500 mg tablet 500 mg PO BID Qty: 60 0RF Rx Instructions: No lo tome junto con otros STEVE. Esta dickson dave Tylenol. Primary Care Provider: Care Physician,No Primary Referrals: Boni Castañeda MD [Med Staff - Active Staff] - 3-5 Days Nazario Allan MD [Med Staff - Active Staff] - 3-5 Days Activity Restrictions/Additional Instructions: Follow-up with general surgery for your gallstones. Follow-up with your primary care physician. If you do not have a primary care physician follow-up with the one listed above. Return back to the ED if symptoms recur, worsen, or change. Zofran as needed for nausea and vomiting. Print Language: Yakut Disposition Disposition: Home, Self Care Discharge Date/Time: 04/09/25 04:24
--- OUTSIDE RECORDS SUMMARY | 2025-04-09 00:08 | XMS RPT_ITS | CCD ---
Author Organization [facility] Care Team Providers Care Environmental Technology Professor Name Role Phone Unavailable Primary Care Provider UnavailArmando Pike Attending Unavailable Care Physician, No Primary Primary Care Unava ilable Jopperi, Armando Consulting Unavailable Armando Mathur Attending Unavailable Care Physician, No Primary Primary Care Unava ilable Jopperi, Armando Admitting Unavailable Filippo Chery Attending Unavailable Care Physician, No Primary Primary Care Unava ilable Jopperi, Armando Admitting Unavailable Oliverio Mathuric Attending Unavailable Care Physician, No Primary Primary Care Unava ilable Jaskaran Celis Consulting Unavailable AdeTanner pérez Consulting Unavailable Hinduelida Angie Consulting Unavailable Leo Ericka Consulting Unavailable Martha Arroyocia Consulting Unavailable NayHair burger Consulting Unavailable LauraBrandie guzman Consulting Unavailable Tobi Hickman Consulting Unavailable [place] Consulting Unavailable Benito Jacobson Consulting Unavailable Janessa Beasley Consulting Unavailable Paul Swift Consulting Unavailable Kandy Manning Consulting Unavailable Miesha Benitez Consulting Unavailable Ginny, Umad Juan Ramon Consulting UnavailJorge Chau Consulting Unavailable Robby Miller Consulting Unavailable Donaldo Monroy Consulting Unavailable Christel Collazo Consulting Unavailable Briana Gutierrez Consulting Unavailable Segundo Alonzo Attending Unavailable Care Physician, No Primary Primary Care Unava ilable Care Physician, No Primary Referring Unava ilable Landon Moya Attending Unavailable Care Physician, No Primary Primary Care Unava ilable Deon Campo Attending Unavailable Care Physician, No Primary Referring Unava ilable Care Physician, No Primary Primary Care Unava ilable Problems Problem Classification Problem Date Documented Da te Episodic/Chronic Conditions associated with dizziness or vertigo (2 sources) Dizziness and giddiness; Translations: [Dizziness and giddiness] Onset: 11-09-2024 Episodic Open wounds of extremities (1 source) Laceration without foreign body of left ring finger without damage to nail, initial encounter; Translations: [Laceration without foreign body of left ring finger without damage to nail, initial encounter] Onset: 10-12-2024 Episodic Osteoarthritis (1 source) Unilateral primary osteoarthritis, right knee; Translations: [Unilateral primary osteoarthritis, right knee] Onset: 12-12-2024 Chronic Other non-traumatic joint disorders (1 source) Pain in right knee; Translations: [Pain in right knee] Onset: 12-12-2024 Episodic Results Test Name Value Interpretation Reference Range Facil ity Knee 4 or More Viewson 12-12 Knee 4 or More Views [facility] Imaging Services [address] [place], [place] [id number] Knee 4 or More Views MR#: [id number] Acct: [id number] Name: SAMARA MOON Rep #: [id number] : 1970 M 54 From: Thanh Trujillo MD PCP: Care Physician,No Primary Status: DEP AMB Study: Knee 4 or More Views Date of Exam: 12/12/24 Exam# [id number] Ordering Dr: Deon Campo DO PROCEDURE: KNEE 4 OR MORE VIEWS (RADKN), 12/12/2024 REASON FOR EXAM: PAIN TECHNIQUE: AP, lateral, AP tunnel, and sunrise views of the right knee were obtained. COMPARISON: None FINDINGS: ORIF proximal right tibia/tibial plateau utilizing a lateral plate and screws as well as free interfragmentary screws. Associated posttraumatic deformity. Fracture/dislocation: No visible acute displaced fracture. Slight lateral subluxation of the femoral condyles with respect of the tibial plateau may be posttraumatic. Joint space(s): Severe virtually complete lateral compartment joint space loss with subchondral sclerosis and tiny osteophytes, potentially posttraumatic. Mild medial compartment joint space loss. Mild/moderate patellofemoral joint space loss. Soft tissues: Unremarkable. Foreign bodies: None visible. Bone mineralization: Demineralization. RAD/Knee 4 or More Views IMPRESSION: 1. Demineralization without visible acute displaced fracture. 2. Posttraumatic deformity of the proximal tibia status post ORIF. Lateral compartment predominant degenerative changes which may in part be posttraumatic. 3. Additional description as above. Reading Location: [id number] CC: Dr. Deon Campo DO; No Primary Care Physician [place]own Operator: Signed Normal [facility] Orthopedic Visit Reporton Orthopedic Visit Report [facility] [address] [place] [address] OFFICE VISIT Date of Service: 12/12/24 MR#: [id number] Acct: [id number] Name: SAMARA MOON Rep #: [id number] : 1970 Provider: Dr. Deon littlejohn DO Age/Sex: 54/M Location: [facility] Status: Signed Intake Vital Signs 11/08/24 15:36 11/29/24 11:49 12/12/24 10:45 Height 5 ft 7 in 5 ft 7 in 5 ft 7 in Weight: 199 lb 2 oz BMI 31.1 Intake Visit Reasons: RIGHT KNEE Chief Complaint: Right Knee Pain Accompanied by: Self Is patient in pain?: Yes Allergies No Known Allergies Allergy (Verified 12/12/24 10:50) Medications ???Medication ???Instructions ???Recorded ???Confirmed ???Type etodolac 500 mg tablet 500 mg PO BID #60 tabs 12/12/24 Rx PFSH Surgical History S/P open reduction and internal fixation (ORIF) of fracture of right patella Social History Smoking Status: Never smoker alcohol intake: never substance use type: does not use HPI RIGHT KNEE Details: This documentation accurately reflects the service provided and the decisions made by me, Dr. Deon Campo DO 12/12/24 0804. Part of today???s visit was documented by Mackenzie Guzman ATC, acting as scribe. SAMARA BLACKMON is a 54 year old M here today for right knee pain. He is Palestinian-speaking and we did use a virtual translating assistance during the office visit today. He describes the pain over the anterior aspect of the knee and more on sides of the knee. He complains of pain down into he ankle at times. He denies any numbness/tingling. When he is working the pain is a lot stronger when he is working. He works doing [employer]. He states he works in a fast paced environment and is walking a lot. He did have open reduction internal fixation of a comminuted tibial plateau fracture 19 years ago, at which time he did have an iliac crest bone graft due to the extensive nature of the fracture, he denies postop complication. He was doing fairly well until about a month ago when he had a fall and his knee pain became progressively worse. He denies any injections or physical therapy to the knee. He did have a fall in the snow about a month ago and he slipped and fell. Pain is mostly medial aspect of the knee. He does get painful crepitation. He denies any cardiac or renal problems or GI bleed history. Ortho Exam General General: Yes no acute distress and Yes well groomed Neurologic: Yes alert and Yes oriented x3 Psychologic: Yes reasonable and appropriate Right Knee Skin/Wound: Yes CDI, No erythema, No ecchymosis and No swelling Homans Sign: No Knee ROM: No ROM-Extension -20 to 0 (10) and Yes ROM-Flexion 0-140 (85) Examination: Yes Med jt line tenderness, Yes Lat jt line tenderness, Yes Crepitus, Yes Pain with flexion and Yes Pain with extention Stability: NML: Anterior Drawer, NML: Posterior Drawer, NML: Valgus 0, NML: Valgus 30, NML: Varus 0 and NML: Varus 30 Patella Translation: 1 KNEE: lacking 10 degrees EXT no joint effusion mid line incision from superior pole of patella no pain with collateral instability medial joint line pain severe crepitation with lateral trista's numbness on lateral aspect of the lower leg Left Knee Patella Translation: 1 Office Procedures Ortho Injections Injections Yes Knee Right Is this a patient provided medication?: No Details: Obtained consent for injection. Under sterile conditions, injected the patients right knee with 1.5mL Bupivacaine, 1.5mL Lidocaine and 1.5mL Depomedrol. The patient tolerated the injection well without any noted complication. Patient should call our office if redness develops, pain worsens or if they have any concerns. Office Meds Depo-Medrol 40 mg/mL suspension for injection Performing Provider: Deon Campo DO Performing Location: [facility] Administered by: Deon Campo DO on 12/12/24 11:39 Dose Route Admin Location Dispensed Lot Number Expiration Date TRINA Jauregui ufacturer 60 mg intra-articular Right Knee 1.5 mL [id number] 04/28/26 6758-3592-77 PHARM ACIA-UPJHN Supplemental Info 12/12/2024 x-ray right knee: There is lateral plate and multiple screws outside the plate from prior ORIF lateral tibial plateau there is advanced lateral compartment arthrosis moderate medial compartment arthrosis moderate patellofemoral arthrosis there is lateral subluxation of the tibia and valgus deformity Coding Level of Care Code Off vis,new,level 3 Diagnoses Post-traumatic arthritis of right lower leg M17.31 Status post fracture of right tibia Z87.81 CPT Codes flat folder.knee () Assessment and Plan Assessment and Plan (1) Post-traumat (more content not included)... Normal [facility] XR KNEE 3V AP/LAT/MERCHANT R Ton 11-22-2024 XR KNEE 3V AP/LAT/MERCHANT RT * * *Final Report* * * DATE OF EXAM: Nov 22 2024 2:01PM WOX 5209 - XR KNEE 3V AP/LAT/MERCHANT RT / PROCEDURE REASON: RIGHT KNEE PAIN * * * * Physician Interpretation * * * * EXAMINATION: XR KNEE 3V AP/LAT/MERCHANT RT CLINICAL HISTORY: Right knee pain Technique: XR KNEE 3V AP/LAT/MERCHANT RT -- RIGHT with 3 views on 4 images Comparison: None RESULT: No acute fracture or dislocation. Narrowing of the medial and lateral compartments of the right knee with subchondral sclerosis. Plate and multiple screws in the proximal right tibia. IMPRESSION: No acute fracture. Degenerative disease of the right knee. [place] Operator: PSCB Transcribe Date/Time: Nov 25 2024 3:46P Dictated by : JAIMIE BUENO MD This examination was interpreted and the report reviewed and electronically signed by: JAIMIE BUENO MD on Nov 25 2024 3:47PM EST [id number] Normal [facility] Lipid Profileon 11-09-2024 Cholesterol [Mass/Vol] 185 mg/dL Normal 200 [facility] Comment on above: Order Comment: Comme nts: NPO at [place] prior to lipid panel Result Comment: <200 mg/dL Desirable 200-240 mg/dL Borderline >240 mg/dL High Risk Performed By: #### L 500.4100 #### [facility] [address] [place], [address] Cholesterol in HDL [Mass/Vol] 44 mg/dL Normal [facility] Comment on above: Order Comment: Comme nts: NPO at MN prior to lipid panel Result Comment: The drugs N-Acetylcysteine and Metamizole may falsely depress this assay. Reference Range HDL <40 mg/dL Low HDL Cholesterol HDL >or= 60 mg/dL High HDL Cholesterol Performed By: #### L 500.4100 #### [facility] [address] [place], [address] Cholesterol in LDL [Mass/Vol] 113 mg/dL Normal 0-130 [facility] Comment on above: Order Comment: Comme nts: NPO at MN prior to lipid panel Performed By: #### L 500.4100 #### [facility] [address] [place], [address] Cholesterol in VLDL [Mass/Vol] 28 mg/dL Normal 5-40 [facility] Comment on above: Order Comment: Comme nts: NPO at MN prior to lipid panel Performed By: #### L 500.4100 #### [facility] [address] [place], [address] Triglyceride [Mass/Vol] 139 mg/dL Normal [facility] Comment on above: Order Comment: Comme nts: NPO at MN prior to lipid panel Result Comment: The drugs N-Acetylcysteine and Metamizole may falsely depress this assay. Serum Triglycerides Reference Interval Normal <150 mg/dL Borderline high 150 - 199 mg/dL High 200 - 499 mg/dL Very High > or = 500 mg/dL Performed By: #### L 500.4100 #### [facility] [address] [place], [place], [address] 12 Lead EKGon 11-08-2024 12 Lead EKG [facility] Cardiovascular Services [address] [place] [address] 12 Lead EKG 11/08/24 0535 MR#: [id number] Acct: [id number] Name: SAMARA MOON Rep #: [id number] : 1970 54 From: Bijan Reich MD Attending Dr: Dr. Armando Mathur DO Status: ADM VIELKA Ordering Dr: Farrukh Victor DO Date: 11/08/24 Location: MS2 Sex: M H Admitted: 11/08/24 Test Reason : STROKE LIKE SYMPTOMS Blood Pressure : */* mmHG Vent. Rate : 77 BPM Atrial Rate : 77 BPM P-R Int : 150 ms QRS Dur : 106 ms QT Int : 412 ms P-R-T Axes : 2 -10 8 degrees QTcB Int : 466 ms Normal sinus rhythm Cannot rule out Inferior infarct , age undetermined Abnormal ECG Confirmed by Bijan Reich ([id number]), industrial editor AILIN HUTCHINSON ([id number]) on 11/09/2024 11:18:38 AM Referred By: Confirmed By: Bijan Reich 11/09/24 1118 Date Bijan Reich MD CC: Dr. Armando Mathur DO; Dr. Farrukh Victor DO; No Primary Care Physician Signed Normal [facility] Basic Metabolic Profile (BMP )on 11-08-2024 BUN/CRE 29.4 RATIO High 10-20 [facility] Comment on above: Order Comment: 'TROP ' Serial specimen #1, #2 or #3: 1 Performed By: #### L 300.4310, L300.3900, L100.0100, L500.2500, L501.4020 #### [facility] [address] [place], [place], [address] CA,Total 8.3 mg/dL Low 8.5-10.1 [facility] Comment on above: Order Comment: 'TROP ' Serial specimen #1, #2 or #3: 1 Performed By: #### L 300.4310, L300.3900, L100.0100, L500.2500, L501.4020 #### [facility] [address] [place], [address] Chloride [Moles/Vol] 107 mmol/L Normal 98-107 [facility] Comment on above: Order Comment: 'TROP ' Serial specimen #1, #2 or #3: 1 Performed By: #### L 300.4310, L300.3900, L100.0100, L500.2500, L501.4020 #### [facility] [address] [place], [address] CO2 [Moles/Vol] 25.0 mmol/L Normal 21.0-32.0 [facility] Comment on above: Order Comment: 'TROP ' Serial specimen #1, #2 or #3: 1 Performed By: #### L 300.4310, L300.3900, L100.0100, L500.2500, L501.4020 #### [facility] [address] [place], [address] Creatinine [Mass/Vol] 0.65 mg/dL Low 0.70-1.30 [facility] Comment on above: Order Comment: 'TROP ' Serial specimen #1, #2 or #3: 1 Result Comment: The validity of the calculated GFR GFRAA in patients over 70 years has not been determined. Clinical correlation is essential. Performed By: #### L 300.4310, L300.3900, L100.0100, L500.2500, L501.4020 #### [facility] [address] [place], [address] ECRCL 138.72 ml/min Normal [facility] Comment on above: Order Comment: 'TROP ' Serial specimen #1, #2 or #3: 1 Performed By: #### L 300.4310, L300.3900, L100.0100, L500.2500, L501.4020 #### [facility] [address] [place], [address] EST GFR - AA 165 mL/min Normal >60 [facility] Comment on above: Order Comment: 'TROP ' Serial specimen #1, #2 or #3: 1 Result Comment: Afri can Guatemalan GFR Calc Performed By: #### L 300.4310, L300.3900, L100.0100, L500.2500, L501.4020 #### [facility] [address] [place], [address] GAP 6 Normal 5-15 [facility] Comment on above: Order Comment: 'TROP ' Serial specimen #1, #2 or #3: 1 Performed By: #### L 300.4310, L300.3900, L100.0100, L500.2500, L501.4020 #### [facility] [address] [place], [address] GFR/1.73 sq M.predicted among non-blacks MDRD (S/P/Bld) [Vol rate/Area] 136 mL/min/{1.73_m2} Normal >60 [facility] Comment on above: Order Comment: 'TROP ' Serial specimen #1, #2 or #3: 1 Result Comment: Non- GFR Calc Performed By: #### L 300.4310, L300.3900, L100.0100, L500.2500, L501.4020 #### [facility] [address] [place], [address] Glucose [Mass/Vol] 110 mg/dL High 74-106 [facility] Comment on above: Order Comment: 'TROP ' Serial specimen #1, #2 or #3: 1 Result Comment: Fast ing Glucose result from 100 to 125 mg/dL suggests IMPAIRED HOMEOSTASIS per A.D.A. criteria. Performed By: #### L 300.4310, L300.3900, L100.0100, L500.2500, L501.4020 #### [facility] [address] [place], [address] Potassium [Moles/Vol] 3.5 mmol/L Normal 3.5-5.1 [facility] Comment on above: Order Comment: 'TROP ' Serial specimen #1, #2 or #3: 1 Performed By: #### L 300.4310, L300.3900, L100.0100, L500.2500, L501.4020 #### [facility] [address] [place], [address] Sodium [Moles/Vol] 139 mmol/L Normal 136-145 [facility] Comment on above: Order Comment: 'TROP ' Serial specimen #1, #2 or #3: 1 Performed By: #### L 300.4310, L300.3900, L100.0100, L500.2500, L501.4020 #### [facility] [address] [place], [address] Urea nitrogen [Mass/Vol] 19 mg/dL High 7-18 [facility] Comment on above: Order Comment: 'TROP ' Serial specimen #1, #2 or #3: 1 Performed By: #### L 300.4310, L300.3900, L100.0100, L500.2500, L501.4020 #### [facility] [address] [place], [address] Bedside Glucoseon 11-08-2024 FINGERSTICK GLU 105 mg/dL Normal 74-106 [facility] Comment on above: Result Comment: MARINO ZHAO OF PATIENT CARE PER NURSING PROTOCOL Performed By: #### L 501.080 #### [facility] [address] [place], [address] Brain without Contraston Brain without Contrast [facility] Imaging Services [address] [place] [address] Brain without Contrast MR#: [id number] Acct: [id number] Name: SAMARA MOON Rep #: [id number] : 1970 M 54 From: Norma Rodriguez nd, MD PCP: Care Physician,No Primary Status: ADM VIELKA Study: Brain without Contrast Date of Exam: 11/08/24 Exam# [id number] Ordering Dr: Armando Mathur DO PROCEDURE: BRAIN WITHOUT CONTRAST REASON FOR EXAM: 54-year-old male, dizziness/vertigo. TECHNIQUE: Multiplanar, multisequence MRI of the brain without intravenous gadolinium-based contrast. CONTRAST: None. COMPARISON: CT head, CTA head and neck earlier same day. FINDINGS: The ventricles, sulci, and cisterns are age-appropriate in size. There is no evidence of intracranial bleed or focal infarction. There is no midline shift, mass effect, or extra-axial collection. No area of restricted diffusion are identified on DWI images. No abnormal T2 bright signal in the white matter is identified. Minimal punctate T2 white matter hyperintensities, appropriate for patient age. The basal ganglia, wai, pituitary, corpus callosum and cerebellum appear normal. The visualized paranasal sinuses, mastoids, and orbits are unremarkable. The flow voids of the major intracranial vessels are patent. The visualized extracranial structures, within limits of technique, are not otherwise remarkable. MRI/Brain without Contrast IMPRESSION: Unremarkable brain MRI. Reading Location: [facility] CC: Dr. Armando Mathur DO; No Primary Care Physician [place] Operator: Signed Normal [facility] CBC W/Diff, Automatedon 10-29 Absolute Lymph 2.14 X10 3/uL Normal 0.83-4.51 [facility] Comment on above: Performed By: #### L 300.4310, L300.3900, L100.0100, L500.2500, L501.4020 #### [facility] [address] [place], [place], [address] Absolute Neut 3.4 X10 3/uL Normal 2.0-7.7 [facility] Comment on above: Performed By: #### L 300.4310, L300.3900, L100.0100, L500.2500, L501.4020 #### [facility] [address] [place], [address] Basophils/100 WBC (Bld) 0.5 % Normal 0-1 [facility] Comment on above: Performed By: #### L 300.4310, L300.3900, L100.0100, L500.2500, L501.4020 #### [facility] [address] [place], [address] Eosinophils/100 WBC (Bld) 1.7 % Normal 0-5 [facility] Comment on above: Performed By: #### L 300.4310, L300.3900, L100.0100, L500.2500, L501.4020 #### [facility] [address] [place], [address] Erythrocyte distribution width (RBC) [Ratio] 12.6 % Normal 11.6-14.6 [facility] Comment on above: Performed By: #### L 300.4310, L300.3900, L100.0100, L500.2500, L501.4020 #### [facility] [address] [place], [address] Hematocrit (Bld) [Volume fraction] 39.8 % Low 40-54 [facility] Comment on above: Performed By: #### L 300.4310, L300.3900, L100.0100, L500.2500, L501.4020 #### [facility] [address] [place], [address] Hemoglobin (Bld) [Mass/Vol] 14.0 g/dL Normal 13.0-16.5 [facility] Comment on above: Performed By: #### L 300.4310, L300.3900, L100.0100, L500.2500, L501.4020 #### [facility] [address] [place], [address] IG% 0.500 Normal 0.0-0.9 [facility] Comment on above: Result Comment: IG% - Immature Granulocytes (promyelocytes, myelocytes and metamyelocytes) > 1% indicates that a LEFT SHIFT is Present. Performed By: #### L 300.4310, L300.3900, L100.0100, L500.2500, L501.4020 #### [facility] [address] [place], [address] Lymphocytes/100 WBC (Bld) 32.8 % Normal 19-41 [facility] Comment on above: Performed By: #### L 300.4310, L300.3900, L100.0100, L500.2500, L501.4020 #### [facility] [address] [place], [address] MCH (RBC) [Entitic mass] 32.7 pg High 27.0-32.0 [facility] Comment on above: Performed By: #### L 300.4310, L300.3900, L100.0100, L500.2500, L501.4020 #### [facility] [address] [place], [address] MCHC (RBC) [Mass/Vol] 35.2 g/dL Normal 32-36 [facility] Comment on above: Performed By: #### L 300.4310, L300.3900, L100.0100, L500.2500, L501.4020 #### [facility] [address] [place], [address] MCV (RBC) [Entitic vol] 93.0 fL Normal 80-94 [facility] Comment on above: Performed By: #### L 300.4310, L300.3900, L100.0100, L500.2500, L501.4020 #### [facility] [address] [place], [address] Monocytes/100 WBC (Bld) 12.7 % High 0-10 [facility] Comment on above: Performed By: #### L 300.4310, L300.3900, L100.0100, L500.2500, L501.4020 #### [facility] [address] [place], [address] Neutrophils/100 WBC (Bld) 51.8 % Normal 47-70 [facility] Comment on above: Performed By: #### L 300.4310, L300.3900, L100.0100, L500.2500, L501.4020 #### [facility] [address] [place], [address] Nucleated RBC (Bld) [#/Vol] 0 10*3/uL Normal 0-5 [facility] Comment on above: Performed By: #### L 300.4310, L300.3900, L100.0100, L500.2500, L501.4020 #### [facility] [address] [place], [address] Platelet mean volume (Bld) [Entitic vol] 8.6 fL Normal 6.2-12.0 [facility] Comment on above: Performed By: #### L 300.4310, L300.3900, L100.0100, L500.2500, L501.4020 #### [facility] [address] [place], [address] Platelets (Bld) [#/Vol] 245 10*3/uL Normal 150-450 [facility] Comment on above: Performed By: #### L 300.4310, L300.3900, L100.0100, L500.2500, L501.4020 #### [facility] [address] [place], [address] RBC (Bld) [#/Vol] 4.28 10*6/uL Low 4.6-6.2 [facility] Comment on above: Performed By: #### L 300.4310, L300.3900, L100.0100, L500.2500, L501.4020 #### [facility] [address] [place], [address] RDW SD 42.5 fl Normal 35.1-43.9 [facility] Comment on above: Performed By: #### L 300.4310, L300.3900, L100.0100, L500.2500, L501.4020 #### [facility] [address] [place], [address] WBC (Bld) [#/Vol] 6.5 10*3/uL Normal 4.4-11.0 [facility] Comment on above: Performed By: #### L 300.4310, L300.3900, L100.0100, L500.2500, L501.4020 #### [facility] [address] [place], [address] Chest 1 Viewon 11-08-2024 Chest 1 View [facility] Imaging Services [address] [place] [address] Chest 1 View MR#: [id number] Acct: [id number] Name: SAMARA MOON Rep #: [id number] : 1970 M 54 From: Paul Posey DO PCP: Care Physician,No Primary Status: [facility] ER Study: Chest 1 View Date of Exam: 11/08/24 Exam# [id number] Ordering Dr: Farrukh Victor DO PROCEDURE: CHEST 1 VIEW REASON FOR EXAM: Headache. Dizziness. TECHNIQUE: AP portable view of the chest. COMPARISON: None FINDINGS: Intermediate to low lung volumes. Minimal atelectasis within the lung bases. No focal airspace consolidation, pneumothorax or pleural effusion is seen. Remaining lung markings otherwise appears clear. Heart size and great vessels are within normal limits. The osseous thorax appears intact. EKG wires overlie the chest. RAD/Chest 1 View IMPRESSION: Intermediate to low lung volumes. No focal airspace consolidation. Reading Location: [facility] CC: Dr. Farrukh Victor DO; No Primary Care Physician [place] Operator: Signed [facility] Emergency Department Summary on 11-08-2024 Emergency Department Summary [facility] Medical Records Department [address] [place] [id number] Emergency Department Summary 11/08/24 MR#: [id number] Acct: [id number] Name: SAMARA MOON Rep #: [id number] : 1970 54 From: Farrukh Victor DO PCP: Care Physician,No Primary Status:REG ER Location: ED HPI History of Present Illness Chief Complaint: Dizziness Narrative Narrative: community resource officer used professional services Patient is a 54-year-old male with no known significant past medical history who presents to the emergency department the chief complaint of dizziness. Patient states that yesterday he had a headache and then he woke up around 4 AM and noted that the room was spinning was complaint dizziness. He states that nothing like this is ever happened before. Patient states that he went to bed around midnight and was overall well and had no complaints. He states that he is nauseous with the dizziness things or not improving therefore he came here for the valuation management. PFSH PFSH Medical History no medical history Home Medications ???Medication ???Instructions ???Recorded ???Last Taken ???Type NK 11/08/24 Unknown History Allergy/AdvReac Type Severity Reaction Status Date / Time No Known Allergies Allergy Verified 11/08/24 04:54 Family History no significant family his Surgical History no surgical history Social History Smoking Status: Never smoker ROS ROS ED ROS Narrative Constitutional: Complains of dizziness as noted above denies headache currently denies any fevers, chills Eyes: Denies change in vision double vision blurry vision Cardiovascular: Denies chest pain or palpitation Respiratory: Denies coughing wheezing shortness of breath Abdomen: Denies abdominal pain nausea vomit diarrhea : Denies any urinary Neurological: Denies numbness, weakness, tingling Musculoskeletal: Denies back pain Skin: Denies rashes or lesions EXAM Physical Exam Narrative Exam Narrative: General: Patient was lying in bed rest comfortably did not appear to be in acute distress Head: Atraumatic, normocephalic Eyes: PERRL bilaterally, EOMI bilaterally, no conjunctival injection noted Neck: Soft, supple, trachea midline Cardiovascular: Regular rate and rhythm no murmurs gallops rubs noted Respiratory: Clear to auscultation bilaterally Abdomen: Soft, nondistended, no tenderness palpation Extremities: +5/5 strength noted in the bilateral upper and lower extremities, radial pulses +2/4 in the bilateral extremities Neurological: Patient following commands knew that he was at the hospital year is 2024 and we are in winter. NIH of 0 GCS 15 Skin: Warm, dry, intact no rashes or lesions noted Const Vital Signs: 11/08/24 04:54 11/08/24 05:12 11/08/24 05:13 Temperature 97.9 F 97.9 F Temperature Source Oral Oral Pulse Rate 83 70 Pulse Rate [Lying] Pulse Rate [Sitting (for 1 minute prior to obtaining)] Pulse Rate [Standing (for 1 minute prior to obtaining)] Respiratory Rate 18 16 Blood Pressure 126/82 H 120/76 Blood Pressure [Lying] Blood Pressure [Sitting (for 1 minute prior to obtaining)] Blood Pressure [Standing (for 1 minute prior to obtaining)] Blood Pressure Mean 96 90 Blood Pressure Mean [Lying] Blood Pressure Mean [Sitting (for 1 minute prior to obtaining)] Blood Pressure Mean [Standing (for 1 minute prior to obtaining)] Pulse Ox 96 98 98 Oxygen Delivery Method Room Air Room Air Room Air 11/08/24 05:15 11/08/24 05:36 11/08/24 06:06 Temperature 97.9 F Temperature Source Oral Pulse Rate 72 80 82 Pulse Rate [Lying] Pulse Rate [Sitting (for 1 minute prior to obtaining)] Pulse Rate [Standing (for 1 minute prior to obtaining)] Respiratory Rate 18 18 18 Blood Pressure 120/76 119/90 H 130/88 H Blood Pressure [Lying] Blood Pressure [Sitting (for 1 minute prior to obtaining)] Blood Pressure [Standing (for 1 minute prior to obtaining)] Blood Pressure Mean 90 99 102 Blood Pressure Mean [Lying] Blood Pressure Mean [Sitting (for 1 minute prior to obtaining)] Blood Pressure Mean [Standing (for 1 minute prior to obtaining)] Pulse Ox 98 98 97 Oxygen Delivery Method Room Air Room Air Room Air 11/08/24 06:22 11/08/24 06:30 11/08/24 06:32 Temperature 98.0 F Temperature Source Pulse Rate 73 73 Pulse Rate [Lying] 70 Pulse Rate [Sitting (for 1 minute prior to obtaining)] 72 Pulse Rate [Standing (for 1 minute prior to obtaining)] 77 Respiratory Rate 18 18 Blood Pressure 111/74 111/74 Blood Pressure [Lying] 116/85 H Blood Pressure [Sitting (for 1 minute prior to obtaining)] 126/90 H Blood Pressure [Standing (for 1 minute prior to obtain (more content not included)... [facility] H AND P Exam - Hospitaliston 11-08-2024 H&P Exam - Hospitalist [facility] Medical Records Department [address] [place] [address] H P Exam - Hospitalist 11/08/24 0747 MR#: [id number] Acct: [id number] Name: SAMARA MOON Rep #: [id number] : 1970 54 From: Armando Mathur DO PCP: Care Physician,No Primary Status:REG ER Location: ED HPI - General General Date of Service: 11/08/24 Chief Complaint: dizziness. HPI Narrative SAMARA BLACKMON, is a 54 M who presents with with dizziness. Symptoms began at 4 AM. Patient is has a feeling of spinning and has some had some nausea. Never had the symptoms before presented to the emergency room. Had a CAT scan that was unremarkable. Seen by neurology recommended MRI as a they feel that this is more likely vertigo but cannot rule out posterior circulation stroke. Patient does not speak Kazakh and with his permission I was able to speak to him and some limited Palestinian but also you using Google translate. PFSH Medical History no medical history no medical history Home Medications ???Medication ???Instructions ???Recorded ???Last Taken ???Type NK 11/08/24 Unknown History Allergy/AdvReac Type Severity Reaction Status Date / Time No Known Allergies Allergy Verified 11/08/24 04:54 Family History no significant family his Surgical History no surgical history Social History (Updated 11/08/24 @ 07:[address] Armando Mathur DO) Smoking Status: Never smoker alcohol intake: never substance use type: does not use ROS ROS Narrative States that he gets some pressure in his teeth. No fevers. No blurry vision. No chest or abdominal pain. All review of systems were negative except as mentioned above in the history of present illness and the other review of systems. Vital Signs Vital Signs Vital Signs: 11/08/24 04:54 11/08/24 05:12 11/08/24 05:13 Temperature 36.6 C 36.6 C Temperature Source Oral Oral Pulse Rate 83 70 Pulse Rate [Lying] Pulse Rate [Sitting (for 1 minute prior to obtaining)] Pulse Rate [Standing (for 1 minute prior to obtaining)] Respiratory Rate 18 16 Blood Pressure 126/82 H 120/76 Blood Pressure [Lying] Blood Pressure [Sitting (for 1 minute prior to obtaining)] Blood Pressure [Standing (for 1 minute prior to obtaining)] Blood Pressure Mean 96 90 Blood Pressure Mean [Lying] Blood Pressure Mean [Sitting (for 1 minute prior to obtaining)] Blood Pressure Mean [Standing (for 1 minute prior to obtaining)] Pulse Ox 96 98 98 Oxygen Delivery Method Room Air Room Air Room Air 11/08/24 05:15 11/08/24 05:36 11/08/24 06:06 Temperature 36.6 C Temperature Source Oral Pulse Rate 72 80 82 Pulse Rate [Lying] Pulse Rate [Sitting (for 1 minute prior to obtaining)] Pulse Rate [Standing (for 1 minute prior to obtaining)] Respiratory Rate 18 18 18 Blood Pressure 120/76 119/90 H 130/88 H Blood Pressure [Lying] Blood Pressure [Sitting (for 1 minute prior to obtaining)] Blood Pressure [Standing (for 1 minute prior to obtaining)] Blood Pressure Mean 90 99 102 Blood Pressure Mean [Lying] Blood Pressure Mean [Sitting (for 1 minute prior to obtaining)] Blood Pressure Mean [Standing (for 1 minute prior to obtaining)] Pulse Ox 98 98 97 Oxygen Delivery Method Room Air Room Air Room Air 11/08/24 06:22 11/08/24 06:30 11/08/24 06:32 Temperature 36.7 C Temperature Source Pulse Rate 73 73 Pulse Rate [Lying] 70 Pulse Rate [Sitting (for 1 minute prior to obtaining)] 72 Pulse Rate [Standing (for 1 minute prior to obtaining)] 77 Respiratory Rate 18 18 Blood Pressure 111/74 111/74 Blood Pressure [Lying] 116/85 H Blood Pressure [Sitting (for 1 minute prior to obtaining)] 126/90 H Blood Pressure [Standing (for 1 minute prior to obtaining)] 121/89 H Blood Pressure Mean 86 86 Blood Pressure Mean [Lying] 95 Blood Pressure Mean [Sitting (for 1 minute prior to obtaining)] 102 Blood Pressure Mean [Standing (for 1 minute prior to obtaining)] 99 Pulse Ox 100 98 Oxygen Delivery Method Room Air 11/08/24 07:00 Temperature Temperature Source Pulse Rate 78 Pulse Rate [Lying] Pulse Rate [Sitting (for 1 minute prior to obtaining)] Pulse Rate [Standing (for 1 minute prior to obtaining)] Respiratory Rate 17 Blood Pressure 105/76 Blood Pressure [Lying] Blood Pressure [Sitting (for 1 minute prior to obtaining)] Blood Pressure [Standing (for 1 minute prior to obtaining)] Blood Pressure Mean 85 Blood Pressure Mean [Lying] Blood Pressure Mean [Sitting (for 1 minute prior to obtaining)] Blood Pressure Mean [Standing (for 1 minute prior to obtaining)] Pulse Ox 98 Oxygen Delivery Method Room Air Weight Weight: 91.8 kg Body Mass Index (BMI) 3 (more content not included)... Normal [facility] L501.4020on 11-08-2024 TROPONIN-I HS 13 pg/mL Normal 3.0-78.0 [facility] Comment on above: Order Comment: 'TROP ' Serial specimen #1, #2 or #3: 1 Result Comment: Marc bah Note: New Test Units and Gender Specific Reference Ranges. For more information see Policy Stat Procedure Coats High Sensitivity Troponin (TNIH) and attachments. Performed By: #### L 300.4310, L300.3900, L100.0100, L500.2500, L501.4020 #### [facility] [address] [place], [place], [id number] Partial Thromboplast Timeon 11-08-2024 aPTT Coag (Bld) [Time] 29.6 s Normal 24.1-36.2 [facility] Comment on above: Performed By: #### L 300.4310, L300.3900, L100.0100, L500.2500, L501.4020 ####[facility] [address] [place], [address] Prothrombin Time w/INRon INR Coag (PPP) [Relative time] 1.0 {INR} Normal [facility] Comment on above: Performed By: #### L 300.4310, L300.3900, L100.0100, L500.2500, L501.4020 #### [facility] [address] [place], [address] PT Coag (PPP) [Time] 13.4 s Normal 11.7-14.9 [facility] Comment on above: Performed By: #### L 300.4310, L300.3900, L100.0100, L500.2500, L501.4020 #### [facility] [address] [place], [address] STROKE Brain/Head without Co nton 11-08-2024 STROKE Brain/Head without Cont [facility] Imaging Services [address] [place] [address] STROKE Brain/Head without Cont MR#: [id number] Acct: [id number] Name: SAMARA MOON Rep #: [id number] : 1970 M 54 From: Paul Posey DO PCP: Care Physician,No Primary Status: REG ER Study: STROKE Brain/Head without Cont Date of Exam: 0 11/08/24 Exam# [id number] Ordering Dr: Farrukh Victor DO PROCEDURE: STROKE BRAIN/HEAD WITHOUT CONT REASON FOR EXAM: Neuro deficits. Headache. Dizziness. Nausea. TECHNIQUE: Axial CT images of the head performed without IV contrast enhancement. Sagittal and coronal reconstructed images were performed for better visualization of the horizontal structures. COMPARISON: None. FINDINGS: There is no evidence of mass lesion, midline shift, or intracranial hemorrhage. The ventricles and extra-axial spaces are age-appropriate. Trace chronic microvascular ischemic changes involving the periventricular white matter. The coker-white interface appears preserved. Posterior fossa structures are within normal limits. The osseous structures, as visualized, appears within normal limits. Trace mucosal thickening within the inferior right maxillary sinus. Remaining visualized paranasal sinuses and mastoid air cells are well pneumatized. CT/STROKE Brain/Head without Cont IMPRESSION: 1. No acute intracranial process identified. If symptoms persist, or if clinically indicated, consider MRI. 2. Age-appropriate involutional and trace chronic microvascular ischemic changes, as detailed above. 3. Trace mucosal thickening within the inferior right maxillary sinus. Findings reported to Dr. Victor on 07/2025 at 5:37 a.m., per stroke protocol One or more dose reduction techniques were used (e.g., Automated exposure control, adjustment of the mA and/or kV according to patient size, use of iterative reconstruction technique). Reading [facility] CC: Dr. Farrukh Victor DO; No Primary Care Physician [place] Operator: Signed [facility] STROKE CTA Head AND Neck W/C onon 11-08-2024 STROKE CTA Head AND Neck W/Con [facility] Imaging Services [address] [place] [id number] STROKE CTA Head AND Neck W/Con MR#: [id number] Acct: [id number] Name: SAMARA MOON Rep #: [id number] : 1970 M 54 From: Paul Posey DO PCP: Care Physician,No Primary Status: REG ER Study: STROKE CTA Head AND Neck W/Con Date of Exam: 0 11/08/24 Exam# [id number] Ordering Dr: Farrukh Victor DO PROCEDURE: STROKE CTA HEAD AND NECK W/CON REASON FOR EXAM: Neuro deficits. Headache. TECHNIQUE: Axial CTA images of the head and neck performed with IV contrast enhancement. Sagittal and coronal reconstructed 3D images were performed for better visualization of the vasculature. COMPARISON: Correlation with non contrast head CT performed 11/08/2024 FINDINGS: Aortic Arch: Normal size and branching pattern. No significant atherosclerotic plaque. Brachiocephalic and Subclavians: Unremarkable RIGHT Carotid: Right CCA: Unremarkable. Right ICA: Unremarkable. Maximum stenosis (NASCET): No significant stenosis. Right ECA: Unremarkable. LEFT Carotid: Left CCA: Tortuosity involving the origin. No hemodynamically significant stenosis Left ICA: Unremarkable. Maximum stenosis (NASCET): No significant stenosis. Left ECA: Unremarkable. Vertebrals: Left vertebral artery is slightly dominant. Arise from the subclavians. Both vertebrals form the basilar. RIGHT Vertebral: Unremarkable. LEFT Vertebral: Unremarkable. Mild venous contamination. No intracranial aneurysms or large vascular malformations are identified. Anterior cerebral arteries: Unremarkable. Middle cerebral arteries: Unremarkable. Basilar artery: Unremarkable. Posterior cerebral arteries: Unremarkable. Other major branches of the posterior circulation: Unremarkable. Major venous structures: Unremarkable. Other findings: No lymphadenopathy. Mild mucosal thickening within the inferior right maxillary sinus. Minimal ground-glass opacities within the lung apices. Bones are unremarkable. CT/STROKE CTA Head AND Neck W/Con IMPRESSION: 1. No significant hemodynamic stenosis or vascular occlusion within the [id number] 2. No significant hemodynamic stenosis or vascular occlusion involving the carotid arteries bilaterally. 3. Left vertebral artery is slightly dominant. 4. Mild mucosal thickening within the inferior right maxillary sinus. One or more dose reduction techniques were used (e.g., Automated exposure control, adjustment of the mA and/or kV according to patient size, use of iterative reconstruction technique). Reading Location: [facility] CC: Dr. 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[employer] Allergies No Known Allergies Allergy (Verified 08/29/24 22:29) Office Procedures [facility] Billing Sheet Testing Post-Accident Non-DOT Breath Alcohol Test: Yes Post-Accident NON-DOT Drug Screen in [facility]: Yes 08/31/24 0748 Date Segundo Roque Signature: Date (if applicable) CC: Normal [facility] Emergency Department Summary on 08-29-2024 Emergency Department Summary [facility] Medical Records Department [address] [place] [address] Emergency Department Summary 08/29/24 MR#: [id number] Acct: [id number] Name: SAMARA MOON Rep #: [id number] : 1970 53 From: Filippo Chery MD PCP: Care Physician,No Primary Status:REG ER Location: ED HPI History of Present Illness HPI Narrative: 53-year-old male no significant past medical or surgical history. [id number]. Was at work today tripped try to catch himself when he grabbed the machine to keep himself upright he cut his left hand on the ring and small finger on the dorsal side at the PIP. No other injuries. States his tetanus is up-to-date 4 years ago when he still lived in [place]. Denies any other complaints or injuries. Chief Complaint: Laceration Informant: patient Occured/Mechanism Mechanism/Context: Yes injury Onset/Context/Timing Onset: Today Context: Sudden Onset Timing: Continuous Current Severity: Mild Maximum Severity: Mild Associated Symptoms Associated Symptoms: Negative for Parasthesia, Weakness or Loss of Funtion Narrative Narrative: 53-year-old male does not speak Kazakh. 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 He injured his left hand causing a laceration of the small and ring finger at work tonight. Tetanus up-to-date. Tetanus Immunization: <5 years Prior similar symptoms: No Recent Illness/Hospitalizatio n: No PFSH PFSH Medical History no medical history no medical history Allergy/AdvReac Type Severity Reaction Status Date / Time No Known Allergies Allergy Verified 08/29/24 22:29 no surgical history Social History Smoking Status: Unknown if ever smoked ROS ROS ED ROS Narrative Denies recent illness. Constitutional Constitutional ED: Denies chills or fever(s) Eyes Eyes: Denies blurry vision ENT ENT ED: Denies ear pain Cardiovascular Cardiovascular: Denies chest pain Respiratory/Chest Respiratory/Chest: Denies cough Gastrointestinal Gastrointestinal: Denies abdominal pain Genitourinary Genitourinary ED: Denies dysuria Musculoskeletal Musculoskeletal: Denies back pain Integumentary Denies abscess Neurologic Neurologic: Denies headache(s) Psychiatric Psychiatric: Denies anxiety Endocrine Endocrinology: Denies cold intolerance Hematologic/Lymphatic Hematologic/Lymphatic: Denies easy bleeding Allergic/Immunologic Allergic/Immunologic ED: Denies mouth swelling EXAM Physical Exam Narrative Exam Narrative: Well-appearing middle-age male. Vital signs are stable afebrile. H EENT exam unremarkable atraumatic. Pupils round react light. No trauma. No tenderness. No hematoma. Neck nontender. Back nontender. Lungs clear to auscultation bilaterally. Heart regular rate rhythm rate about 88 no murmur. Chest wall ribs nontender. Abdomen soft nontender. Moving all 4 extremities. Neurovascular intact. Full range of motion. No deformity. Dorsum of his left hand left small and ring finger on the PIP he has 2 lacerations 1 on each finger. The left small finger is a flap laceration about 3 inches in length. The left ring finger is more linear over the PIP and about 1- 1/2 to 2 inches in length. Both have mild bleeding. He has full flexion extension. Normal touch sensation. There is no involvement of the joint, bone or extensor tendon. I do not believe there is any involvement of the neurovascular bundle of the digital nerve or artery. Const Vital Signs: 08/29/24 22:27 Temperature 98.2 F Temperature Source Oral Pulse Rate 88 Respiratory Rate 16 Blood Pressure 136/75 H Blood Pressure Mean 95 Pulse Ox 98 Oxygen Delivery Method Room Air Positive well nourished and well developed; Negative for cachectic, contractures or unkempt General Appearance ED: well developed and NAD; Negative for unkempt, cachectic, contractures, cyanotic or diaphoretic Nutritional Appearance: Negative for cachectic HEENT Reports moist mucous membranes normocephalic and atraumatic Eyes PERRL and EOMs intact bilaterally Neck full ROM and supple Chest Wall inspection of chest normal and palpation of chest normal Resp normal respiratory effort and clear to auscultation bilaterally Cardio regular rate, regular rhythm, S1 normal heart sound, S2 normal heart sound and no murmurs GI non-tender, non-distended and no masses Back/Spine no CVA tenderness Extremity full ROM; Negative for normal to inspection Extremity Narrative: Left hand. Dorsum. Left small finger dorsum of the PIP is a flap laceration. Shape like a C. Approximately 3 inches in length. Involves the skin and subcu tissue. No joint. No extensor tendon involvement. Full flexion extension and distal touch sensation. Mild bleeding. Left ring finger dorsum PIP linear laceration about (more content not included)... [facility] Encounters Encounter Date Encounter Type Care Provider Facility Start: 12-12-2024 End: 12-12-2024 ambulatory [facility] Facility:[facility] Start: 11-22-2024 End: 11-22-2024 ambulatory Facility:[facility] Start: 11-22-2024 End: 11-22-2024 Subsequent hospital visit by physician [facility] Work Phone: Radiology Start: 11-08-2024 End: 11-09-2024 ambulatory Armando Mathur Facility:[facility] Start: 08-30-2024 End: 08-30-2024 ambulatory Segundo ALSTON Facility:[facility] Start: 08-29-2024 End: 08-29-2024 Emergency department patient visit Filippo Chery Facility:[facility] Plan of Treatment Date Care Activity Detail Author Start: 2024 Prostate specific an tigen measurement Prostate Cancer Screening Discussion [facility] Start: 05-29-2024 Covid-19 Vaccine ( season) Covid-19 Vaccine ( season) [facility] Start: 05-29-2024 Influenza vaccination Influenza Vacc ine (#1) [facility] Start: 2019 Pneumococcal Vaccine : 50+ (1 of 1 - PCV) Pneumococcal Vaccine: 50+ (1 of 1 - PCV) [facility] Start: 2019 Shingrix Vaccine (1 of 2) Shingrix V accine (1 of 2) [facility] Start: 2014 Diabetes Screening Diabetes Screenin g [facility] Start: 2014 Screening for malign ant neoplasm of colon [facility] Start: 2004 Lipid panel Lipid Screening [facility] Start: 1988 Hepatitis B Vaccine (1 of 3 - 19+ 3-dose series) Hepatitis B Vaccine (1 of 3 - 19+ 3-dose series) [facility] Start: 1988 Urine microalbumin profile DTaP,Tdap,Td Vaccine (1 - Tdap) [facility] Start: 1987 Anxiety Screening Anxiety Screening [facility] Start: 1987 Depression Screening Depression Scre ening [facility] Start: 1987 Hepatitis C screening Hepatitis C Sc danielle [facility] Start: 1987 HIV screening HIV Screening [facility] Payers Date Payer Category Payer Self-pay 2024 [employer] Blue [facility] BLUE CARD PPO OOS [id number] 2024 Unknown [id number] Unknown [id number] Unknown [id number] Unknown [id number] Unknown [id number] Unknown [id number] Unknown [id number] Unknown [id number] Social History Date Type Detail Facility [facility] Start: 1970 Sex assigned at Not on file [facility] Gender identity Not on file [facility] inic History of Present illness Narrative 11-22-2024 Audra Carrion Tech - 11/22/2024 1:20 PM EST Note Date & Type Note Facility 11-22-2024 History of Presen t illness Narrative Radiology Service Progress Note PATIENT NAME: Samara BLACKMON DATE OF SERVICE: November 22, 2024 TIME: 2:01 PM PATIENT IDENTITY VERIFICATION COMPLETED USING TWO (2) IDENTIFIERS: Name and Date of confirmed by patient verbally. FALL SCREENING: Has the patient had 2 falls in the last year or 1 fall with injury or currently using an Ambulatory Assistive Device (Walker, Cane, Wheelchair, Crutches, etc.)? No PATIENT GENDER DATA: Assigned male at PATIENT RELEVANT IMPLANT DATA REVIEWED: Not Applicable PATIENT PRESENTS WITH AN IMPLANTABLE OR ATTACHED EXTRUSION OPERATOR: No RADIOLOGY DEPARTMENT: General X-ray: Exam(s) Completed: Lower Extremity X-Ray(s): Knee, AP / Lat / Merchant Right PERIPHERAL IV DATA: Not applicable SIGNED BY: Alondra Keating November 22, 2024 2:01 PM documented in this encounter [facility] Progress note 11-22-2024 Note Date & Type Note Facility 11-22-2024 Note HNO ID: [id number] Author: AUDRA CARRION Tech Service: ? Author Type: Technologist Type: Progress Notes Filed: 11/22/2024 14:01 Note Text: Radiology Service Progress Note PATIENT NAME: Samara BLACKMON DATE OF SERVICE: November 22, 2024 TIME: 2:01 PM PATIENT IDENTITY VERIFICATION COMPLETED USING TWO (2) IDENTIFIERS: Name and Date of confirmed by patient verbally. FALL SCREENING: Has the patient had 2 falls in the last year or 1 fall with injury or currently using an Ambulatory Assistive Device (Walker, Cane, Wheelchair, Crutches, etc.)? No PATIENT GENDER DATA: Assigned male at PATIENT RELEVANT IMPLANT DATA REVIEWED: Not Applicable PATIENT PRESENTS WITH AN IMPLANTABLE OR ATTACHED EXTRUSION OPERATOR: No RADIOLOGY DEPARTMENT: General X-ray: Exam(s) Completed: Lower Extremity X-Ray(s): Knee, AP / Lat / Merchant Right PERIPHERAL IV DATA: Not applicable SIGNED BY: Alondra Keating November 22, 2024 2:01 PM [facility] Discharge summary note 11-09-2024 Note Date & Type Note Facility 11-09-2024 Note [facility] Medical Records Department [address] [place] [address] Discharge Summary 11/09/24 0931 MR#: [id number] Acct: [id number] Name: THEO BLACKMONASMARA KEITA Rep #: [id number] : 1970 54 From: Armando Mathur DO PCP: Care Physician,No Primary Status:ADM VIELKA Location: [place] [address] Providers Date of Admission: 11/08/24 Primary Care Physician: No Primary Care Phys Consultations 11/08/24 08:34 Consult: Tele-Neurology Routine Consulting Provider: [facility] Reason for Consult: Acute Ischemic Stroke/TIA EMERGENT Consult: No MD Notified: Yes Date Notified: 11/08/24 Time Notified: 07:40 Method of Notification: ED Physician Initiated Nursing Unit Staff Notify [facility] of Tele-Neurology Consult: Yes Reason For Visit: VERTIGO Diagnosis Discharge Diagnosis (1) Dizziness: Status: Acute Code(s): R42 - Dizziness and giddiness Plan: [place] to be more benign paroxysmal positional vertigo. MRI brain was negative. Symptoms have improved. Will start the patient on as needed meclizine. Medications at Discharge Home Medications meclizine 25 mg tablet 25 mg PO TID PRN PRN Dizziness #10 tabs 11/09/24 trazodone 50 mg tablet 50 mg PO QHS PRN insomnia #10 tabs 11/09/24 Hospital Course Operations None Procedures None Weight / BMI Weight Weight: 91.8 kg Body Mass Index (BMI) 31.6 ABG / Lab / Microbiology Data 11/08/24 05:11 11/08/24 05:11 Laboratory: Laboratory Results - last 24 hr 11/09/24 05:22: Triglycerides 139, Cholesterol 185, LDL Cholesterol 113, VLDL Cholesterol 28, HDL Cholesterol 44 Radiography Diagnostic Testing: Radiology Impression Brain MRI 11/08/24 07:46 IMPRESSION: Unremarkable brain MRI. Reading Location: [id number] D/C Instructions DC O2, CPAP, BIPAP Needs Home O2 Discharge instructions: No Meaningful Use Info Meaningful Use Meaningful Use Diagnoses (Choose all that apply): None applicable Ischemic Stroke Statin Dosing Therapy Reference: STATIN DOSE THERAPY REFERENCE: * Patients > 75 years receive moderate or high dose statin therapy. * Patients 75 years or YOUNGER should receive HIGH intensity statin dose unless contraindicated. You will be required to document reason for non-treatment if statin daily dose does not meet guidelines. HIGH DOSE STATIN THERAPY DAILY Atorvastatin > than or = to 40 mg Rosuvastatin > than or = to 20 mg Amlodipine + Atorvastatin > than or = to 2.5/40 mg Ezetimibe + Simvastatin 10/80 mg Simvastatin 80mg Discharge Plan Admission Admit Date/Time: 11/08/24 07:38 Attending Provider: Armando Mathur Primary Care Provider: Care Physician,No Primary Instructions Additional Instructions / Restrictions: Tuvo mareos por v???rtigo del o???do interno. No sufri??? beverley???n derrame cerebral y la resonancia magn???sushma de bonilla cerebro no lo demostr???. Si esto vuelve a suceder, puede dave un medicamento llamado meclizina para ayudar. Aunque es posible que los s???ntomas no vuelvan a ocurrir. Te recomiendo que vayas al dentista por la escupida de aprul. Sospecho que probablemente sea por tus dientes, phoebe no vi nada cuando brina??? fede. Puede dave Trazodone seg???n sea necesario para el insomnio. Discharge Orders/Prescriptions Prescriptions: New meclizine 25 mg Tablet 25 mg PO TID PRN PRN (Reason: Dizziness) Qty: 10 0RF trazodone 50 mg tablet 50 mg PO QHS PRN (Reason: insomnia) Qty: 10 0RF Referrals / Follow Up: [facility] [Non-Staff] - Care Physician,No Primary [Primary Care Provider] - Disposition Disposition (needs filled in before D/C Order can be placed): Home, Self Care Charges/Coding Visit Charges Inpatient E M: 07226 Disch Hosp 11/09/24 0937 Cosigner Signature (if applicable): CC: Dr. Armando Mathur, DO; No Primary Care Physician Signed [facility] Summary Purpose Family History No Family History Records FoundNo Family History Records Found Advance Directives No Advanced Directives Records FoundNo Advanced Directives Records Found Additional Source Comments Source Comments (unrecognize d section and content) In the event this informatio n is protected by the Federal Confidentiality of Alcohol and Drug Abuse Patient Records regulations: The Federal rules restrict any use of the information to criminally investigate or prosecute any alcohol or drug abuse patient.[facility] (unrecognized sect ion and content) No Status Records FoundNo Status Records Found INFORMATION SOURCE (unrecogn ized section and content) DATE CREATED AUTHOR 11/27/2024 [facility] DATE CREATED AUTHOR AUTHOR'S ORGANIZ ATION 12/14/2024 [facility] FOR RECORDS PERTAINING TO PATIENTS WHO ARE OR HAVE BEEN ENROLLED IN A CHEMICAL DEPENDENCY/SUBSTANCEABUSE PROGRAM, SOME INFORMATION MAY BE OMITTED. This clinical summary was aggregated from multiple sources. Caution should be exercised in using it in the provision of clinical care. This summary normalizes information from multiple sources, and as a consequence, information in this document may materially change the coding, format and clinical context of patient data. In addition, data may be omitted in some cases. CLINICAL DECISIONS SHOULD BE BASED ON THE PRIMARY CLINICAL RECORDS. [facility] [employer] [facility]. provides no warranty or guarantee of the accuracy or completeness of information in this document.
[2025-04-09] MEDS: 0.9% Normal Saline (1000mL) 1,000 ML 999 ML IV (00:11)
[2025-04-09 00:26] LABS: Hematocrit 38.7 % (40-54); Hemoglobin 13.3 g/dL (13.0-16.5); Immature Granulocytes Count 0.020 X10^3/uL (0.0-0.0); Mean Corp Hgb Conc 34.4 g/dL (32-36); Mean Corpuscular Volume 96.3 fL (80-94); Mean Platelet Vol. 9.0 fl (6.2-12.0); NRBC Flagged by Analyzer 0 % (0-5); Platelet Count 231 K/mm3 (150-450); RBC Distribution Width CV 12.4 % (11.6-14.6); RBC Distribution Width SD 44.0 fl (35.1-43.9); Red Blood Count 4.02 M/mm3 (4.6-6.2); White Blood Count 6.6 K/mm3 (4.4-11.0)
[2025-04-09] MEDS: Famotidine 200 MG/20 ML MDV 20 MG in 0.9% Normal Saline (Pres. free 8 ML 300 MG IV (01:00)
[2025-04-09 01:08] LABS: Lipase 99 U/L (13-75)
[2025-04-09 01:16] LABS: AST(SGOT) 26 U/L (<=37); Alanine Aminotransfer ALT/SGPT 18 U/L (<=46); Albumin, Serum 4.0 g/dL (3.5-5.0); Alkaline Phosphatase 107 U/L (40-129); Anion Gap 8 (5-15); BUN 16 mg/dL (4-19); BUN/Creat Ratio 20.2 RATIO (10-20); Bilirubin, Direct 0.19 mg/dL (0.00-0.30); Calcium,Total 8.2 mg/dL (7.6-11.0); Carbon Dioxide 24.2 mmol/L (21.0-32.0); Chloride 104 mmol/L (98-108); Estimated Creatinine Clearance 112.00 ml/min (50-250); Globulin 2.8 g/dL (2.2-4.2); Glucose 115 mg/dL (70-99); Potassium 3.7 mmol/L (3.3-5.1)
[2025-04-09 02:02] VITALS: BP 111/72; PULSE 63; RESP 15; O2SAT 98
[2025-04-09 04:00] VITALS: BP 115/78; PULSE 61; RESP 16; O2SAT 99
[2025-04-09 04:23] VITALS: BP 115/78; PULSE 61; RESP 16; TEMP 36.8; O2SAT 99
== END 2025-04-09 04:24 | disposition home or self-care (01) ==
PROVIDERS: Emergency Provider Surgery; Visit Provider Surgery
DX: K80.70 Calculus of gallbladder and bile duct without cholecystitis without obstruction (principal)
CPT/HCPCS: 74177; 80048; 80076; 83690; 85025; 96361; 96374; 96375; 99283; Q9967; A4216; J2405

== ENCOUNTER 2025-06-11 00:26 | Emergency (ER) | payer SELFPAY ==
[2025-06-11 00:28] VITALS: BP 123/68; PULSE 63; RESP 18; TEMP 36.7; O2SAT 96; BMI 31.6
--- NOTE | 2025-06-11 00:59 | CT_ITS ---
PROCEDURE: ABDOMEN/PELVIS W IV CONT ONLY 06/11/2025 REASON FOR EXAM: EPIGASTRIC RUQ ABDOMINAL PAIN TECHNIQUE: Procedure Code: [id number] Modality: CT Procedure: ABDOMEN/PELVIS W IV CONT ONLY Coronal and Sagittal reconstruction series were provided. CONTRAST: OMNIPAQUE 350 VOLUME: 100 mL One or more dose reduction techniques were used (e.g., Automated exposure control, adjustment of the mA and/or kV according to patient size, use of iterative reconstruction technique. RADIATION DOSE SUMMARY: CTDlvol: 19.12 mGy DLP: 1046 mGycm COMPARISON: CT scan on 04/26/2025. FINDINGS: Unchanged cholelithiasis without definite CT evidence of acute cholecystitis. Unchanged mildly prominent common bile duct. Unchanged mildly prominent pancreatic duct. Unchanged diffusely thickened stomach, probably gastritis. Uncomplicated colonic diverticulosis. The visualized lung bases are unremarkable. Normal liver. Normal spleen. Normal pancreas. Normal bilateral adrenal glands. Normal size of the right kidney. There is no right renal mass. There are no right renal calculi. There is no right hydronephrosis. Normal visualized right ureter. Normal size of the left kidney. There is no left renal mass. There are no left renal calculi. There is no left hydronephrosis. Normal visualized left ureter. Normal visualized stomach. Normal small intestine. The appendix is visualized and appears normal. There is no demonstrated peritoneal fluid. Normal abdominal aorta. Normal inferior vena cava. Normal retroperitoneum. Normal urinary bladder. There is no pelvic mass lesion or lymphadenopathy. There is no pelvic fluid. Normal abdominal wall. Normal osseous structures. CT/Abdomen/Pelvis W IV Cont ONLY IMPRESSION: Unchanged cholelithiasis without definite CT evidence of acute cholecystitis. Unchanged mildly prominent common bile duct. Unchanged mildly prominent pancreatic duct. Unchanged diffusely thickened stomach, probably gastritis. Uncomplicated colonic diverticulosis. Reading Location[facility]
--- NOTE | 2025-06-11 00:59 | EKG12_ITS ---
Test Reason : ABDOMINAL PAIN Blood Pressure : */* mmHG Vent. Rate : 55 BPM Atrial Rate : 55 BPM P-R Int : 138 ms QRS Dur : 100 ms QT Int : 440 ms P-R-T Axes : -8 -7 6 degrees QTcB Int : 420 ms Sinus bradycardia Otherwise normal ECG Confirmed by Bijan Reich ([id number]), dictionary editor AILIN HUTCHINSON ([id number]) on 06/12/2025 1:21:41 PM Referred By: ER Confirmed By: Bijan Reich
--- NOTE | 2025-06-11 01:02 | ED.VIS.GI ---
HPI HPI - GI History of Present Illness Chief Complaint: Abd Pain Narrative Narrative: Patient is a 54-year-old male presenting to the emergency department for abdominal pain. Patient is Burmese-speaking, iPad ironing pleater was used. Patient has a past medical history of constipation, hypertension, acid reflux, gastritis diagnosed in [place] by EGD and status post appendectomy. Patient states that he began having epigastric abdominal pain this morning. States it feels similar to when he presented in March. States that the pain is constant. He denies any fever, chills, nausea, vomiting, chest pain or shortness of breath. He reports that he has been taking his omeprazole and sucralfate and it has been helping with his symptoms. States that he was supposed to have a gallbladder surgery in March however he changed jobs and did not have his prior insurance anymore so he is now scheduled to have it in July. States that he did have a hard bowel movement today but otherwise has been having normal bowel movements. He denies any dysuria or hematuria. [facility] Medical History Wears glasses Burmese speaking patient Anxiety Arthritis Weakness Back pain Frequent headaches Injury of head and neck Constipation Non-smoker Leg cramps History of edema Hypertension Acid reflux Abdominal pain Home Medications ?Medication ?Instructions ?Recorded ?Last Taken ?Type omeprazole 40 mg capsule,delayed 40 mg PO QDAY #30 caps 04/17/25 Unknown Rx release sucralfate 1 gram tablet 1 g PO QACHS #56 tabs 04/17/25 Unknown Rx sucralfate 1 gram tablet (Carafate) 1 g PO TID 1 week #21 tabs 06/11/25 Unknown Rx Allergy/AdvReac Type Severity Reaction Status Date / Time No Known Allergies Allergy Verified 06/11/25 00:27 Surgical History S/P appendectomy S/P open reduction and internal fixation (ORIF) of fracture of right patella Social History Smoking Status: Never smoker alcohol intake: never substance use type: does not use ROS ROS ED ROS Narrative see HPI EXAM Physical Exam Narrative Exam Narrative: Vital signs: Reviewed General: Alert and oriented x 3. No acute distress HEENT: Head is normocephalic and atraumatic, sinuses nontender, pupils equal round and reactive. Nares are patent. Oropharynx and throat exams normal. Neck: Supple without lymphadenopathy nontender Cardiovascular: Regular rate and rhythm, no murmurs. No rubs or gallops. Normal S1 and S2 Respiratory: Clear to auscultation bilaterally. No wheezes, rales, rhonchi Abdominal: Soft and tender to palpation in epigastric region. No tenderness to palpation in the right upper quadrant. Normal bowel sounds. No guarding or rebound. Extremities: No tenderness. No bruising. Normal range of motion. Normal sensation. Skin: No rash or redness. Neurological: Cranial nerves II through XII are grossly intact. Normal strength and sensation. Normal cerebellar function The rest of the physical exam is unremarkable Const Vital Signs: 06/11/25 00:28 Temperature 98.1 F Temperature Source Oral Pulse Rate 63 Respiratory Rate 18 Blood Pressure 123/68 H Blood Pressure Mean 86 Pulse Ox 96 Oxygen Delivery Method Room Air MDM MDM MDM Narrative Medical decision making narrative: Patient is a 54-year-old male presenting to the emergency department for epigastric abdominal pain. Patient was seen and examined. Vitals are stable. Patient resting in bed comfortably no acute distress. Differential includes but is not limited to: Gastritis, acid reflux, pancreatitis, cholecystitis, cholelithiasis with biliary colic, ACS Patient given a GI cocktail and zofran. No history of pancreatitis, no alcohol use, I doubt pancreatitis however will obtain lipase with additional lab work including CBC, CMP, troponin, EKG and urinalysis. Patient has no chest pain, shortness of breath, no ripping or tearing pain. Do not suspect aortic pathology as a cause of his pain. States it feels similar to his prior episodes of abdominal pain. Will obtain an EKG and 1 troponin to rule out ACS as a cause. I did review the surgical outpatient note from 04/[address] Pabon did think his symptoms were likely gastritis related after his ER visit on 04/08. There was no plan for any gallbladder surgery at that time. EKG shows sinus bradycardia at a rate of 55. No ischemic changes. No ST elevation or depression. No abnormal T wave inversions. No dysrhythmia. CBC with no leukocytosis and a normal hemoglobin. CMP with slight elevation in BUN at 21 however no other significant abnormalities. Normal liver enzymes. Normal troponin of 6. Lipase is mildly elevated at 98 however does not meet pancreatitis criteria being 3 times upper limit of normal. Urinalysis with no evidence of UTI. CT shows unchanged findings from prior CTs. Unchanged cholelithiasis without definite CT evidence of acute cholecystitis. Unchanged mildly prominent common bile duct. Unchanged mildly prominent pancreatic duct. Unchanged diffusely thickened stomach, probably gastritis. Uncomplicated colonic diverticulosis. Patient reevaluated, still complaining of abdominal pain, Toradol given. He was updated on the negative workup. I think this is likely gastritis that is causing his pain given it is all epigastric feels similar to prior and has no acute findings on CT or labs. I discussed discharge with the patient however he states he is in too much pain and cannot be discharged home. I explained that we do not prescribe opiates for gastritis and that his workup is otherwise unremarkable. Patient was agreeable with discharge and started to leave and then turned around and said that he cannot bear the pain. Patient given morphine for continued pain and general surgery was consulted given his continued pain and at this point concern for biliary colic causing his pain. However before general surgery returned my page patient had eloped from the emergency department shortly after receiving his morphine. Clinical impression Epigastric abdominal pain drug seeking behavior History & Record Review Discussion w/independent historian: Patient Lab Data Attestation: I reviewed the patient's lab results. Labs: Laboratory Results - last 24 hr 06/11/25 06/11/25 00:47 01:05 WBC 6.7 RBC 4.11 L Hgb 13.5 Hct 39.1 L MCV 95.1 H MCH 32.8 H MCHC 34.5 RDW Std Deviation 43.8 RDW Coeff of Ike 12.5 Plt Count 234 MPV 9.1 Immature Gran % (Auto) 0.300 Neut % (Auto) 57.9 Lymph % (Auto) 29.3 [place] % (Auto) 10.6 H Eos % (Auto) 1.5 Baso % (Auto) 0.4 Absolute Neuts (auto) 3.9 Absolute Lymphs (auto) 1.96 Nucleated RBC % 0 Sodium 137 Potassium 3.4 Chloride 104 Carbon Dioxide 23.5 Anion Gap 9 BUN 21 H Creatinine 0.65 L Estim Creat Clear Calc 135.91 Est GFR (MDRD) Non-Af 111 BUN/Creatinine Ratio 32.1 H Glucose 107 H Calcium 8.4 Total Bilirubin 0.53 AST 23 ALT 16 Alkaline Phosphatase 88 Troponin T High Sens < 6 Total Protein 7.0 Albumin 3.9 Globulin 3.1 Albumin/Globulin Ratio 1.3 Lipase 98 H Urine Color Yellow Urine Clarity Clear Urine pH 7.0 Ur Specific [place] 1.010 Urine Protein 15 H Urine Glucose (UA) Normal Urine Ketones Negative Urine Occult Blood Negative Urine Nitrite Negative Urine Bilirubin Negative Urine Urobilinogen Normal Ur Leukocyte Esterase Negative Urine RBC 0 SEEN Urine WBC 0 SEEN Ur Squamous Epith Cells 0 SEEN Urine Bacteria 0 SEEN Urine Mucus 0 SEEN Radiography Diagnostic Testing: Clinical Impression(s) from Imaging Studies Abdomen/Pelvis CT 06/11/25 00:59 IMPRESSION: Unchanged cholelithiasis without definite CT evidence of acute cholecystitis. Unchanged mildly prominent common bile duct. Unchanged mildly prominent pancreatic duct. Unchanged diffusely thickened stomach, probably gastritis. Uncomplicated colonic diverticulosis. Reading Location: [place] [address] Discharge Plan Triage Chief Complaint: Abd Pain ED Provider: Cary Machuca Dx/Rx/DC Orders Clinical Impression: Gastritis Instructions: ED Gastritis (Adult) Prescriptions: New sucralfate [Carafate] 1 gram tablet 1 g PO TID 7 Days Qty: 21 0RF No Action sucralfate 1 gram tablet 1 g PO QACHS Qty: 56 0RF Rx Instructions: Take an hour before meals and at bedtime. Must take on empty stomach; hold bedtime dose prior to procedure omeprazole 40 mg capsule,delayed release(DR/EC) 40 mg PO QDAY Qty: 30 3RF Rx Instructions: swallow whole; do not crush, chew, dissolve, cut, break Primary Care Provider: Care Physician,No Primary Referrals: Jose Estrella, DO [Med Staff - Active Staff] - 3-5 Days Care Physician,No Primary [Primary Care Provider] - Activity Restrictions/Additional Instructions: You can follow-up with the GI doctor above as soon as possible. Take the medication you are prescribed here. Return to the ED with any new or worsening symptoms. Your evaluation in the Emergency Department did not reveal any acute reason for admission. However, I want to emphasize that you may be early in the course of a disease process or illness even if it is not present. For this reason you should follow-up within 24 hours for reevaluation with either your primary care physician or if necessary back here in the Emergency Department. You should return to the Emergency Department immediately if your symptoms worsen or new symptoms develop. Print Language: Burmese Disposition Disposition: Home, Self Care Discharge Date/Time: 06/11/25 07:06
[2025-06-11 01:09] LABS: Hematocrit 39.1 % (40-54); Hemoglobin 13.5 g/dL (13.0-16.5); Immature Granulocytes Count 0.020 X10^3/uL (0.0-0.0); Mean Corp Hgb Conc 34.5 g/dL (32-36); Mean Corpuscular Volume 95.1 fL (80-94); Mean Platelet Vol. 9.1 fl (6.2-12.0); NRBC Flagged by Analyzer 0 % (0-5); Platelet Count 234 K/mm3 (150-450); RBC Distribution Width CV 12.5 % (11.6-14.6); RBC Distribution Width SD 43.8 fl (35.1-43.9); Red Blood Count 4.11 M/mm3 (4.6-6.2); White Blood Count 6.7 K/mm3 (4.4-11.0)
[2025-06-11] MEDS: Lidocaine 2% Viscous15 ML UDC 15 ML PO (01:09)
[2025-06-11 01:11] LABS: Mucous, Urine 0 SEEN /hpf (<or=2+); Red Blood Cells-Urine 0 SEEN /hpf (0-5); Squamous Epithelial Cells - UA 0 SEEN /hpf (0-5)
[2025-06-11 01:12] LABS: Color, Urine Yellow (Yellow); Glucose, Dipstick Normal (Normal); Ketone-Dipstick Negative (Negative); Leukocyte Esterase-Dipstick Negative /ul (Negative); Nitrite-Dipstick Negative (Negative); Occult Blood-Urine Negative /ul (Negative); Protein-Dipstick 15 mg/dl (Negative); Specific Gravity, Urine 1.010 (1.002-1.030); Urine Bilirubin Dipstick Negative (Negative)
--- OUTSIDE RECORDS SUMMARY | 2025-06-11 01:36 | XMS RPT_ITS | CCD ---
Author Organization [facility] Care Team Providers Care Salvage Diver Name Role Phone Unavailable Primary Care Provider Unavailabl e Care Physician, No Primary Primary Care Provider Unavailable Care Physician, No Primary Referring Provider Un available Dr. Deon Campo DO Attending Provider Nita LEE, Dr. Navarrete Attending Provider Dr. Ottoniel Holloway DO Emergency Provider Care Physician, No Primary Primary Care Provider Unavailable Dr. Ottoniel Holloway DO Attending Provider Care Physician, No Primary Referring Provider Un available Dr. Tamar Pabon MD Attending Provider Care Physician, No Primary Primary Care Unava ilable Care Physician, No Primary Referring Unava ilable Tamar Pabon Attending Unavailable Armando Mathur Consulting Unavailable Care Physician, No Primary Primary Care Unava ilable Armando Mathur Attending Unavailable Armando Mathur Admitting Unavailable Care Physician, No Primary Primary Care Unava ilable Armando Mathur Attending Unavailable Care Physician, No Primary Primary Care Unava ilable Care Physician, No Primary Referring Unava ilable Segundo Alonzo Attending Unavailable Care Physician, No Primary Primary Care Unava ilable Care Physician, No Primary Referring Unava ilable Deon Campo Attending Unavailable Care Physician, No Primary Primary Care Unava ilable Landon Moya Attending Unavailable Ottoniel Holloway Attending Unavailabl e Care Physician, No Primary Primary Care Unava ilable Care Physician, No Primary Primary Care Unava ilable Filippo Chery Attending Unavailable Care Physician, No Primary Referring Unava ilable Care Physician, No Primary Primary Care Unava ilable Tamar Pabon Attending Unavailable Jaskaran Celis Consulting Unavailable Armando Mathur Attending Unavailable Armando Mathur Admitting Unavailable Care Physician, No Primary Primary Care Unava ilable Tanner Mcdaniels Consulting Unavailable Angie Torres Consulting Unavailable Ericka Bailey Consulting Unavailable Valarie Arroyo Consulting Unavailable Hair Tee Consulting Unavailable Brandie Sanchez Consulting Unavailable Tobi Hickman Consulting Unavailable [place] Consulting Unavailable Benito Jacobson Consulting Unavailable Janessa Beasley Consulting Unavailable Paul Swift Unavailable Kandy Manning Consulting Unavailable Miesha Benitez Consulting Unavailable Tyler Gross Consulting UnavailJorge Chau Consulting Unavailable Robby Miller Consulting Unavailable Donaldo Monroy Consulting Unavailable Christel Collazo Consulting Unavailable Briana Gutierrez Consulting Unavailable Medications Current Medications Medication Drug Class(es) Dates Sig (Normalized) Sig (Original) omeprazole 40 mg delayed release oral capsule (1 source) Proton Pump Inhibitor Start: 04-17-2025 take 1 capsule by mouth once daily Omeprazole 40 mg capsule,delayed release(DR/EC) Active 40 mg PO daily 30 April 17, 2025 12:00am swallow whole; do not crush, chew, dissolve, cut, break ondansetron 4 mg disintegrating oral tablet (2 sources) Serotonin-3 Receptor Antagonist Start: 04-09-2025 take 1 tablet by mouth every eight hours as needed for nausea Ondansetron 4 mg tablet,disintegra ting Active 4 mg PO EVERY 8 HOURS NEEDED as needed for Nausea 10 April 09, 2025 12:00am sucralfate 1000 mg oral tablet (1 source) Aluminum Complex Start: 04-17-2025 take 1 tablet by mouth once at bedtime Sucralfate 1 gram tablet Active 1 g PO before meals and at bedtime 56 April 17, 2025 12:00am Take an hour before meals and at bedtime. Must take on empty stomach; hold bedtime dose prior to procedure Completed/Discontinued Medications Medication Drug Class(es) Dates Sig (Normalized) Sig (Original) etodolac 500 mg oral tablet (2 sources) Nonsteroidal Anti-inflammatory Drug Start: 12-12-2024 End: 04-17-2025 take 1 tablet by mouth twice daily Etodolac 500 mg tablet Discontinued 500 mg PO TWICE A DAY 60 December 12, 2024 12:00am April 17, 2025 1:53pm No lo tome junto con otros STEVE. Esta dickson dave Tylenol. meclizine hydrochloride 25 mg oral tablet (2 sources) Antiemetic Start: 11-09-2024 End: 12-12-2024 take 1 tablet by mouth three times daily as needed for dizziness Meclizine 25 mg Tablet Discontinued 25 mg PO 3 TIMES DAILY NEEDED as needed for Dizziness 10 November 09, 2024 1:00am December 12, 2024 10:50am traZODone hydrochloride 50 mg oral tablet (2 sources) Serotonin Reuptake Inhibitor Start: 11-09-2024 End: 12-12-2024 take 1 tablet by mouth at bedtime as needed Trazodone 50 mg tablet Discontinued 50 mg PO AT BEDTIME as needed for insomnia 10 November 09, 2024 1:00am December 12, 2024 10:50am Problems Active Problems Problem Classification Problem Date Documented Da te Episodic/Chronic Abdominal pain (5 sources) Epigastric pain; Translations: [Epigastric pain] Onset: 5 04-17-2025 Episodic Administrative/social admission (2 sources) Patient encounter status; Translations: [Encounter for examination for insurance purposes] 09-06-2024 Episodic Biliary tract disease (6 sources) Biliary calculus; Translations: [Calculus of gallbladder without cholecystitis without obstruction] Onset: 5 04-09-2025 Episodic Esophageal disorders (3 sources) Gastroesophageal reflux disease; Translations: [Gastro-esophageal reflux disease without esophagitis] Onset: 5 04-17-2025 Chronic Osteoarthritis (6 sources) Arthritis; Translations: [Unilateral post-traumatic osteoarthritis, right knee] Onset: 5 12-12-2024 Chronic Other gastrointestinal disorders (2 sources) Dysphagia; Translations: [Dysphagia, unspecified] 04-17-2025 Episodic Other gastrointestinal disorders (1 source) Dysphagia, unspecified; Translations: [Dysphagia, unspecified] Onset: 5 Episodic Other injuries and conditions due to external causes (3 sources) H/O: fracture; Translations: [Personal history of (healed) traumatic fracture] 12-12-2024 Episodic Past or Other Problems Problem Classification Problem Date Documented Da te Episodic/Chronic Conditions associated with dizziness or vertigo (4 sources) Dizziness; Translations: [Dizziness and giddiness] Onset: 11-09-2024 11-17-2024 Episodic Open wounds of extremities (3 sources) Laceration of left ring finger; Translations: [Laceration without foreign body of left ring finger without damage to nail, initial encounter] Onset: 10-12-2024 09-06-2024 Episodic Other non-traumatic joint disorders (1 source) Pain in right knee; Translations: [Pain in right knee] Onset: 12-12-2024 Episodic Results Test Name Value Interpretation Reference Range Facility MR/PAT.[facility] 05-12-2025 MR/PAT[facility] Medical Records Department [address] [place] [address] PAT - Anesthesia 05/12/25 1232 MR#: [id number] Acct: [id number] Name: SAMARA MOON Rep #: [id number] : 1970 54 From: Rene Gama MD PCP: Care Physician,No Primary Status:[place] [facility] [place] Race: H Location: EN Pre-Assessment Diagnosis/Proposed Procedure Planned Operative Procedure(s): EGD/CSCOPE Anesthesia History Anesthesia History - service correspondent: Anesthesia History - service correspondent Hx Hospitalization Yes: 10/2024 DIZZINESS AND 05/12/25 09:31 WEAKNESS Any Problems With Anesthesia No 05/12/25 09:31 Cholinesterase deficiency No 05/12/25 09:31 You/Your Family Experience No 05/12/25 09:31 fever (hyperthermia) with Relationship Recent Exposure to Contagious Disease Does patient have nerve No 05/12/25 09:31 stimulator Patient instructed to have device shut off --Does patient have Pacemaker or ICD? When Was Last Pacemaker Check QUESTION #4 FULL TEXT: You/Your Family Experience fever (hyperthermia) with Anesthesia Last Oral Intake Last Oral intake: Last Oral Intake NPO since Meds taken in AM with sips of water? Meds patient instructed to take am of surgery PONV PONV - service correspondent: PONV - service correspondent Female No 05/12/25 09:31 HX of Motion Sickness No 05/12/25 09:31 HX of N/V After Surgery No 05/12/25 09:31 Non-Smoker Yes 05/12/25 09:31 Duration of Surgery greater No 05/12/25 09:31 than 60 minutes Number of Risk Factors 1 05/12/25 09:31 PONV Score Low Risk 05/12/25 09:31 Height Weight Height Weight: Anesthesia: Height Weight Height 5 ft 6.93 in 04/17/25 13:15 Respiratory Assessment Respiratory Assessment - service correspondent: Respiratory Tract Infection Hx - service correspondent Hx Respiratory Tract Infection No 05/12/25 09:31 STOP Sleep Apnea STOP Sleep Apnea - service correspondent: STOP Sleep Apnea - service correspondent Hx Hypertension Yes: NO MEDS FOR 3 YRS 05/12/25 09:31 Hx Sleep Apnea No 05/12/25 09:31 CPAP BIPAP Do you snore loudly (louder Yes 05/12/25 09:31 than talking or can be heard Do you often feel tired/ Yes 05/12/25 09:31 fatigued/ sleepy during daytime? Has anyone observed you stop No 05/12/25 09:31 breathing during sleep? STOP Results Positive 05/12/25 09:31 QUESTION #5 FULL TEXT : Do you snore loudly (louder than talking or can be heard through closed doors)? Tobacco Use History Tobacco Use History - service correspondent: Tobacco Use History - service correspondent Tobacco Use Smoking Status Never smoker 05/12/25 09:31 Hx Tobacco Use No 05/12/25 09:31 Years Smoking Packs Smoked per Day Smoking Cessation Date was within the last 15 years Hx Smoking Cessation Date Hx Smoking Cessation Counseling Hematologic Medial History Hematologic Hx - service correspondent: Hematologic Medical Hx - public health officer Hx of Blood Transfusion No 05/12/25 09:31 Hx of Transfusion in last 3 No 05/12/25 09:31 Months Date of Last Transfusion (if within last 3 months) Ever experience any problems No 05/12/25 09:31 with transfusion(s)? Specify any problems Hx of Preganancy in last 3 N/A 05/12/25 09:31 Months Nurse Filling Out Transfusion DSCHRIBER 05/12/25 09:31 Questions: Date: 05/12/25 05/12/25 09:31 Time: 09:35 05/12/25 09:31 Patient unable to answer at this time (ie. confused, unrespo /Reproducti on History /Reproducti ve History - service correspondent: /Reproducti ve Hx- service correspondent Hx Now No 05/12/25 09:31 Gestational Age (in weeks): EDC: Hx Hx Para Hx Section SAB No 05/12/25 09:31 [facility] Medical History (Updated 05/12/25 @ 09:52 by Soraida Markham) Wears glasses Guyanese speaking patient Anxiety Arthritis Weakness Back pain Frequent headaches Injury of head and neck Constipation Non-smoker Leg cramps History of edema Hypertension Acid reflux Abdominal pain Home Medications ???Medication ???Instructions ???Recorded ???Last Taken ???Type omeprazole 40 mg capsule,delayed 40 mg PO QDAY #30 caps 04/17/25 Un known Rx release sucralfate 1 gram tablet 1 g PO QACHS #56 tabs 04/17/25 Unk nown Rx Allergy/AdvReac Type Severity Reaction Status Date / Time No Known Allergies Allergy Verified 05/12/25 09:28 Surgical History (Updated 05/12/25 @ 09:52 by Soraida Markham) S/P appendectomy S/P open reduction and internal fixation (ORIF) of fracture of right patella Social History Smoking Status: Never smoker (more content not included)... Normal [facility] MR/PAT.[facility] Medical Records Department [address] [place] [address] PAT - Anesthesia 05/12/25 1232 MR#: [id number] Acct: [id number] Name: THEO BLACKMONSAMARA Rep #: [id number] : 1970 54 From: Rene Gama MD PCP: Care Physician,No Primary Status:[place] [facility] [place] Race: H Location: EN Pre-Assessment Diagnosis/Proposed Procedure Planned Operative Procedure(s): EGD/CSCOPE Anesthesia History Anesthesia History - service correspondent: Anesthesia History - service correspondent Hx Hospitalization Yes: 10/2024 DIZZINESS AND 05/12/25 09:31 WEAKNESS Any Problems With Anesthesia No 05/12/25 09:31 Cholinesterase deficiency No 05/12/25 09:31 You/Your Family Experience No 05/12/25 09:31 fever (hyperthermia) with Relationship Recent Exposure to Contagious Disease Does patient have nerve No 05/12/25 09:31 stimulator Patient instructed to have device shut off --Does patient have Pacemaker or ICD? When Was Last Pacemaker Check QUESTION #4 FULL TEXT: You/Your Family Experience fever (hyperthermia) with Anesthesia Last Oral Intake Last Oral intake: Last Oral Intake NPO since Meds taken in AM with sips of water? Meds patient instructed to take am of surgery PONV PONV - service correspondent: PONV - service correspondent Female No 05/12/25 09:31 HX of Motion Sickness No 05/12/25 09:31 HX of N/V After Surgery No 05/12/25 09:31 Non-Smoker Yes 05/12/25 09:31 Duration of Surgery greater No 05/12/25 09:31 than 60 minutes Number of Risk Factors 1 05/12/25 09:31 PONV Score Low Risk 05/12/25 09:31 Height Weight Height Weight: Anesthesia: Height Weight Height 5 ft 6.93 in 04/17/25 13:15 Respiratory Assessment Respiratory Assessment - service correspondent: Respiratory Tract Infection Hx - service correspondent Hx Respiratory Tract Infection No 05/12/25 09:31 STOP Sleep Apnea STOP Sleep Apnea - service correspondent: STOP Sleep Apnea - service correspondent Hx Hypertension Yes: NO MEDS FOR 3 YRS 05/12/25 09:31 Hx Sleep Apnea No 05/12/25 09:31 CPAP BIPAP Do you snore loudly (louder Yes 05/12/25 09:31 than talking or can be heard Do you often feel tired/ Yes 05/12/25 09:31 fatigued/ sleepy during daytime? Has anyone observed you stop No 05/12/25 09:31 breathing during sleep? STOP Results Positive 05/12/25 09:31 QUESTION #5 FULL TEXT : Do you snore loudly (louder than talking or can be heard through closed doors)? Tobacco Use History Tobacco Use History - service correspondent: Tobacco Use History - service correspondent Tobacco Use Smoking Status Never smoker 05/12/25 09:31 Hx Tobacco Use No 05/12/25 09:31 Years Smoking Packs Smoked per Day Smoking Cessation Date was within the last 15 years Hx Smoking Cessation Date Hx Smoking Cessation Counseling Hematologic Medial History Hematologic Hx - service correspondent: Hematologic Medical Hx - public health officer Hx of Blood Transfusion No 05/12/25 09:31 Hx of Transfusion in last 3 No 05/12/25 09:31 Months Date of Last Transfusion (if within last 3 months) Ever experience any problems No 05/12/25 09:31 with transfusion(s)? Specify any problems Hx of Preganancy in last 3 N/A 05/12/25 09:31 Months Nurse Filling Out Transfusion DSCHRIBER 05/12/25 09:31 Questions: Date: 05/12/25 05/12/25 09:31 Time: 09:35 05/12/25 09:31 Patient unable to answer at this time (ie. confused, unrespo /Reproducti on History /Reproducti ve History - service correspondent: /Reproducti ve Hx- service correspondent Hx Now No 05/12/25 09:31 Gestational Age (in weeks): EDC: Hx Hx Para Hx Section SAB No 05/12/25 09:31 [facility] Medical History (Updated 05/12/25 @ 09:52 by Soraida Markham) Wears glasses Guyanese speaking patient Anxiety Arthritis Weakness Back pain Frequent headaches Injury of head and neck Constipation Non-smoker Leg cramps History of edema Hypertension Acid reflux Abdominal pain Home Medications ???Medication ???Instructions ???Recorded ???Last Taken ???Type omeprazole 40 mg capsule,delayed 40 mg PO QDAY #30 caps 04/17/25 Un known Rx release sucralfate 1 gram tablet 1 g PO QACHS #56 tabs 04/17/25 Unk nown Rx Allergy/AdvReac Type Severity Reaction Status Date / Time No Known Allergies Allergy Verified 05/12/25 09:28 Surgical History (Updated 05/12/25 @ 09:52 by Soraida Markham) S/P appendectomy S/P open reduction and internal fixation (ORIF) of fracture of right patella Social History Smoking Status: Never smoker (more content not included)... Normal [facility] Surgery Visit Reporton 04-17 Surgery Visit Report [facility] [address] [place] [address] OFFICE VISIT Date of Service: 04/17/25 MR#: [id number] Acct: [id number] Name: SAMARA MOON Rep #: [id number] : 1970 Provider: Dr. Tamar childs MD Age/Sex: 54/M Location: [facility] Status: Signed Intake Vital Signs 04/08/25 23:27 04/17/25 13:15 Height 5 ft 7 in 5 ft 6.93 in Weight: 193 lb BMI 30.2 BP 104/66 Blood Pressure Location Rt brachial Position Sitting Respiration 16 Pulse 68 Pulse Oximetry (%) 97 Intake Visit Reasons: [facility] ER FU Chief Complaint: gallstones Arcade Game Technician Required: No Is patient in pain?: No Allergies No Known Allergies Allergy (Verified 04/17/25 13:17) Medications ???Medication ???Instructions ???Recorded ???Confirmed ???Type ondansetron 4 mg disintegrating 4 mg PO Q8H PRN PRN Nausea #10 tab s 04/09/25 04/17/25 Rx tablet omeprazole 40 mg capsule,delayed 40 mg PO QDAY #30 caps 04/17/25 Rx release sucralfate 1 gram tablet 1 g PO QACHS #56 tabs 04/17/25 Rx Have you fallen in the past year?: Yes (Pt fell Aug 2024 pt was evaluated after) [facility] Medical History (Updated 04/17/25 @ 13:[address] Tamar Pabon MD) Acid reflux Abdominal pain Surgical History (Updated 04/17/25 @ 13:15 by Monie Pizano) S/P appendectomy S/P open reduction and internal fixation (ORIF) of fracture of right patella Social History Smoking Status: Never smoker alcohol intake: never substance use type: does not use HPI HPI HPI: 54-year-old male presents for follow-up from ER due to epigastric pain and cholelithiasis. History obtained with help of medical pathology teacher as patient is Guyanese speaking. Patient states that his pain started Thursday 7 AM as he was eating orange. Was tolerable however had ribs about 1 PM pain progressively got worse in the epigastric area until he came into the ER at 11 PM as the pain is similar to previous but that would usually resolve after laying down this [address] abdomen pelvis showed cholelithiasis patient had normal white blood cell count, hemoglobin, liver functions. Patient previously on EGD and colonoscopy 15 years ago in [place] diagnosed with gastritis. Patient states he did have some lab rabeprazole [id number] took 2 pills on and Thursday but was not on daily. Patient also admits to food getting stuck in his chest/lower esophagus bread and meats. Patient states yesterday morning he did wake up and was coughing or clearing his throat and had bright red blood at that 2 to 3 AM. Patient has bowel movements daily denies any blood denies any family history of colon cancer. ROS General General: Yes weight change; No appetite, fatigue, colon cancer or breast cancer HEENT HEENT: Yes difficulty swallowing; No eye injury, eye surgery, swollen glands or hoarseness Endo Endocrine: No thyroid disease, diabetes mellitus, thyroid cancer, Hair loss, heat intolerance or cold intolerance Skin Skin: No rash or changing moles Musc Musculoskeletal: Yes arthritis; No back problems, rheumatoid arthritis, gout or joint pain Cardio Cardiovascular: No murmur, pacemaker, heart disease, atrial fibrillation, high blood pressure, heart attack, heart stent, palpitations, shortness of breath with exertion or chest pain Psych Psychiatric: No depression, anxiety or hearing voices Resp Respiratory: No shortness of breath, No sleep apnea, No cough, No COPD, No asthma, No emphysema and No wheezing Gastro Gastrointestinal: Yes abdominal pain, Yes nausea or vomiting, No diarrhea, No constipation, No blood in stool, Yes acid reflux, No hemorrhoids, No ulcers, Yes gallbladder problem and No black,tarry stools Wes Hematologic: No blood thinners, No blood disorders, No bleeding, No anemia and No blood clots Neuro Neurologic: Yes numbness and Yes tingling Exam Const General: cooperative, healthy appearing, comfortable and no acute distress [facility] Head: normocephalic and atraumatic Neck Neck: supple Resp Effort Inspection: normal respiratory effort Cardio Rate: regular rate GI Inspection: non-distended Palpation: soft, no hernias and tender in the epigastrum (Mild); with no rebound tenderness Skin General: no rashes or lesions noted Neuro General: CN's II-XI intact bilaterally Extrem General: normal to inspection Psych Mental Status: mental status grossly normal Attitude: cooperative Assessment and Plan Assessment and Plan (1) Epigastric pain: Status: Acute (2) Dysphagia: Status: Acute (3) Cholelithiasis: Status: Inactive (4) Acid reflux: Status: Acute Medications: New sucralfate Take an hour before meal (more content not included)... Normal [facility] Absolute lymphocyte countOrd ered By: [facility] Lymphocytes Auto (Unsp spec) [#/Vol] 1.81 10*3/uL 0.83-4.51 [facility] Absolute neutrophil countOrd ered By: [facility] on 04-09-2025 Neutrophils (Bld) [#/Vol] 3.9 10*3/uL 2.0-7.7 [facility] Anion gap in Serum or Plasma [facility] 04-09-2025 Anion gap [Moles/Vol] 8 mmol/L 5-15 [facility] Automated lymphocyte count a s percentage of total leukocytesOrdered By: [facility] on 04-09-2025 Lymphocytes/100 WBC Auto (Unsp spec) 27.4 % 19-41 [facility] BUN/creatinine ratioOrdered By: [facility] on 04-09-2025 Urea nitrogen/Creatinine [Mass ratio] 20.2 mg/mg High 10-20 [facility] Basic Metabolic Profile (BMP )on 04-09-2025 BUN/CRE 20.2 RATIO High - [facility] Comment on above: Performed By: #### L 100.0100, L500.2500, L500.3400, L501.2450 ####[facility] [address] [place], [address] Calcium [Mass/Vol] 8.2 mg/dL Normal 7.6-11.0 [facility] Comment on above: Performed By: #### L 100.0100, L500.2500, L500.3400, L501.2450 ####[facility] [address] [place], [address] Chloride [Moles/Vol] 104 mmol/L Normal 98-108 [facility] Comment on above: Performed By: #### L 100.0100, L500.2500, L500.3400, L501.2450 ####[facility] [address] [place], [address] CO2 [Moles/Vol] 24.2 mmol/L Normal 21.0-32.0 [facility] Comment on above: Performed By: #### L 100.0100, L500.2500, L500.3400, L501.2450 ####[facility] [address] [place], [address] Creatinine [Mass/Vol] 0.79 mg/dL Normal 0.70-1.20 [facility] Comment on above: Performed By: #### L 100.0100, L500.2500, L500.3400, L501.2450 ####[facility] [address] [place], [address] ECRCL 112.00 ml/min Normal 50-250 [facility] Comment on above: Performed By: #### L 100.0100, L500.2500, L500.3400, L501.2450 ####[facility] [address] [place], [address] GAP 8 Normal 5-15 [facility] Comment on above: Performed By: #### L 100.0100, L500.2500, L500.3400, L501.2450 ####[facility] [address] [place], [address] GFR/1.73 sq M.predicted among non-blacks MDRD (S/P/Bld) [Vol rate/Area] 105 mL/min/{1.73_m2} Normal >60 [facility] Comment on above: Result Comment: mL/m in/1.73m2 CKD-EPI Creatinine Equation (2020) Performed By: #### L 100.0100, L500.2500, L500.3400, L501.2450 ####[facility] [address] [place], [address] Glucose [Mass/Vol] 115 mg/dL High 70-99 [facility] Comment on above: Performed By: #### L 100.0100, L500.2500, L500.3400, L501.2450 ####[facility] [address] [place], [address] Potassium [Moles/Vol] 3.7 mmol/L Normal 3.3-5.1 [facility] Comment on above: Performed By: #### L 100.0100, L500.2500, L500.3400, L501.2450 ####[facility] [address] [place], [address] Sodium [Moles/Vol] 136 mmol/L Normal 133-145 [facility] Comment on above: Performed By: #### L 100.0100, L500.2500, L500.3400, L501.2450 ####[facility] [address] [place], [address] Urea nitrogen [Mass/Vol] 16 mg/dL Normal 4-19 [facility] Comment on above: Performed By: #### L 100.0100, L500.2500, L500.3400, L501.2450 ####[facility] [address] [place], [address] Basophil percentageOrdered B y: Ottoniel Holloway on 04-09-2025 Basophils/100 WBC (Bld) 0.3 % 0-1 [facility] Bilirubin directOrdered By: Ottoniel Holloway on 04-09-2025 Bilirubin.direct [Mass/Vol] 0.19 mg/dL 0.00-0.30 [facility] Bilirubin, totalOrdered By: Ottoniel Holloway on 04-09-2025 Bilirubin [Mass/Vol] 0.49 mg/dL 0.00-1.30 [facility] CBC W/Diff, Automatedon 07-2024 Absolute Lymph 1.81 X10 3/uL Normal 0.83-4.51 [facility] Comment on above: Performed By: #### L 100.0100, L500.2500, L500.3400, L501.2450 ####[facility] [address] [place], [address] Absolute Neut 3.9 X10 3/uL Normal 2.0-7.7 [facility] Comment on above: Performed By: #### L 100.0100, L500.2500, L500.3400, L501.2450 ####[facility] [address] [place], [address] Basophils/100 WBC (Bld) 0.3 % Normal 0-1 [facility] Comment on above: Performed By: #### L 100.0100, L500.2500, L500.3400, L501.2450 ####[facility] [address] [place], [address] Eosinophils/100 WBC (Bld) 2.3 % Normal 0-5 [facility] Comment on above: Performed By: #### L 100.0100, L500.2500, L500.3400, L501.2450 ####[facility] [address] [place], [address] Erythrocyte distribution width (RBC) [Ratio] 12.4 % Normal 11.6-14.6 [facility] Comment on above: Performed By: #### L 100.0100, L500.2500, L500.3400, L501.2450 ####[facility] [address] [place], [address] Hematocrit (Bld) [Volume fraction] 38.7 % Low 40-54 [facility] Comment on above: Performed By: #### L 100.0100, L500.2500, L500.3400, L501.2450 ####[facility] [address] [place], [address] Hemoglobin (Bld) [Mass/Vol] 13.3 g/dL Normal 13.0-16.5 [facility] Comment on above: Performed By: #### L 100.0100, L500.2500, L500.3400, L501.2450 ####[facility] [address] [place], [address] IG% 0.300 Normal 0.0-0.9 [facility] Comment on above: Result Comment: IG% - Immature Granulocytes (promyelocytes, myelocytes and metamyelocytes) > 1% indicates that a LEFT SHIFT is Present. Performed By: #### L 100.0100, L500.2500, L500.3400, L501.2450 ####[facility] [address] [place], [address] Lymphocytes/100 WBC (Bld) 27.4 % Normal 19-41 [facility] Comment on above: Performed By: #### L 100.0100, L500.2500, L500.3400, L501.2450 ####[facility] [address] [place], [address] MCH (RBC) [Entitic mass] 33.1 pg High 27.0-32.0 [facility] Comment on above: Performed By: #### L 100.0100, L500.2500, L500.3400, L501.2450 ####[facility] [address] [place], [address] MCHC (RBC) [Mass/Vol] 34.4 g/dL Normal 32-36 [facility] Comment on above: Performed By: #### L 100.0100, L500.2500, L500.3400, L501.2450 ####[facility] [address] [place], [address] MCV (RBC) [Entitic vol] 96.3 fL High 80-94 [facility] Comment on above: Performed By: #### L 100.0100, L500.2500, L500.3400, L501.2450 ####[facility] [address] [place], [address] Monocytes/100 WBC (Bld) 10.2 % High 0-10 [facility] Comment on above: Performed By: #### L 100.0100, L500.2500, L500.3400, L501.2450 ####[facility] [address] [place], [address] Neutrophils/100 WBC (Bld) 59.5 % Normal 47-70 [facility] Comment on above: Performed By: #### L 100.0100, L500.2500, L500.3400, L501.2450 ####[facility] [address] [place], [address] Nucleated RBC (Bld) [#/Vol] 0 10*3/uL Normal 0-5 [facility] Comment on above: Performed By: #### L 100.0100, L500.2500, L500.3400, L501.2450 ####[facility] [address] [place], [address] Platelet mean volume (Bld) [Entitic vol] 9.0 fL Normal 6.2-12.0 [facility] Comment on above: Performed By: #### L 100.0100, L500.2500, L500.3400, L501.2450 ####[facility] [address] [place], [address] Platelets (Bld) [#/Vol] 231 10*3/uL Normal 150-450 [facility] Comment on above: Performed By: #### L 100.0100, L500.2500, L500.3400, L501.2450 ####[facility] [address] [place], [address] RBC (Bld) [#/Vol] 4.02 10*6/uL Low 4.6-6.2 [facility] Comment on above: Performed By: #### L 100.0100, L500.2500, L500.3400, L501.2450 ####[facility] [address] [place], [address] RDW SD 44.0 fl High 35.1-43.9 [facility] Comment on above: Performed By: #### L 100.0100, L500.2500, L500.3400, L501.2450 ####[facility] [address] [place], [address] WBC (Bld) [#/Vol] 6.6 10*3/uL Normal 4.4-11.0 [facility] Comment on above: Performed By: #### L 100.0100, L500.2500, L500.3400, L501.2450 ####[facility] [address] [place], [address] Carbon dioxide, total [Moles /volume] in Central venous bloodOrdered By: Ottoniel Holloway on 04-09-2025 CO2 [Moles/Vol] 24.2 mmol/L 21.0-32.0 [facility] Chloride assayOrdered By: Adan Holloway on 04-09-2025 Chloride [Moles/Vol] 104 mmol/L 98-108 [facility] Eosinophil percentageOrdered By: Ottoniel Holloway on 04-09-2025 Eosinophils/100 WBC (Bld) 2.3 % 0-5 [facility] Erythrocyte distribution wid th ratioOrdered By: Ottoniel Holloway on 04-09-2025 Erythrocyte distribution width (RBC) [Ratio] 12.4 % 11.6-14.6 [facility] Erythrocyte distribution wid th standard deviationOrdered By: Ottonielrenee Nguyen on 04-09-2025 Erythrocyte distribution width (RBC) [Ratio] 44.0 fl High 35.1-43.9 [facility] Glomerular filtration rate ( GFR) estimation/1.73 sq m using serum, plasma, or whole bOrdered By: Ottonielrenee Holloway on 04-09-2025 GFR/1.73 sq M.predicted among non-blacks MDRD (S/P/Bld) [Vol rate/Area] 105 mL/min/{1.73_m2} >60 [facility] Comment on above: mL/min/1.73m2 CKD-EP I Creatinine Equation (2020) Hematocrit Auto (Bld) [Volum e fraction]Ordered By: Ottonielrenee Holloway on 04-09-2025 Hematocrit (Bld) [Volume fraction] 38.7 % Low 40-54 [facility] Hemoglobin measurementOrdere d By: Ottoniel [facility] hospitalsheryl[facility] on 04-09-2025 Hemoglobin (Bld) [Mass/Vol] 13.3 g/dL 13.0-16.5 [facility] Immature granulocytes/100 WB C Auto (Bld)Ordered By: [facility] on 04-09-2025 Immature granulocytes/100 WBC (Bld) 0.300 % 0.0-0.9 [facility] Comment on above: IG% - Immature Granu locytes (promyelocytes, myelocytes and metamyelocytes) > 1% indicates that a LEFT SHIFT is Present. Laboratory - Chemistry and C hemistry - challengeOrdered By: Ottonielrenee Holloway on 04-09-2025 AST [Catalytic activity/Vol] 26 U/L <38 [facility] Lipaseon 04-09-2025 Lipase [Catalytic activity/Vol] 99 U/L High 13-75 [facility] Comment on above: Result Comment: Marc bah note: LIPASE revised reference range effective 23. New Lipase methodology. Expected to produce lower values than the previous assay method. NEW Reference Range: 13 - 75 U/L Performed By: #### L 100.0100, L500.2500, L500.3400, L501.2450 ####[facility] [address] [place], [address] Lipase measurementOrdered By : Ottoniel Holloway on 04-09-2025 Lipase [Catalytic activity/Vol] 99 U/L High 13-75 [facility] Comment on above: Please note:LIPASE r evised reference range effective 23. New Lipase methodology. Expected to produce lower values than the previous assay method. NEW Reference Range: 13 - 75 U/L Liver Profileon 04-09-2025 Albumin [Mass/Vol] 4.0 g/dL Normal 3.5-5.0 [facility] Comment on above: Performed By: #### L 100.0100, L500.2500, L500.3400, L501.2450 ####[facility] [address] [place], [address] ALK PHOS 107 U/L Normal 40-129 [facility] Comment on above: Performed By: #### L 100.0100, L500.2500, L500.3400, L501.2450 ####[facility] [address] [place], [address] ALT [Catalytic activity/Vol] 18 U/L Normal <=46 [facility] Comment on above: Performed By: #### L 100.0100, L500.2500, L500.3400, L501.2450 ####[facility] [address] [place], [address] AST [Catalytic activity/Vol] 26 U/L Normal <=37 [facility] Comment on above: Performed By: #### L 100.0100, L500.2500, L500.3400, L501.2450 ####[facility] [address] [place], [address] Bilirubin [Mass/Vol] 0.49 mg/dL Normal 0.00-1.30 [facility] Comment on above: Performed By: #### L 100.0100, L500.2500, L500.3400, L501.2450 ####[facility] [address] [place], [address] Bilirubin.direct [Mass/Vol] 0.19 mg/dL Normal 0.00-0.30 [facility] Comment on above: Performed By: #### L 100.0100, L500.2500, L500.3400, L501.2450 ####[facility] [address] [place], [address] Globulin (S) [Mass/Vol] 2.8 g/dL Normal 2.2-4.2 [facility] Comment on above: Performed By: #### L 100.0100, L500.2500, L500.3400, L501.2450 ####[facility] [address] [place], [address] T PROT 6.8 g/dL Normal 5.9-8.4 [facility] Comment on above: Performed By: #### L 100.0100, L500.2500, L500.3400, L501.2450 ####[facility] [address] [place], [address] MCV (mean corpuscular volume ) determinationOrdered By: Ottoniel Holloway on 04-09-2025 MCV (RBC) [Entitic vol] 96.3 fL High 80-94 [facility] Mean corpuscular hemoglobin (MCH) determinationOrdered By: Ottoniel Amie on 04-09-2025 MCH (RBC) [Entitic mass] 33.1 pg High 27.0-32.0 [facility] Mean corpuscular hemoglobin concentration (MCHC) determinationOrdered By: Ottoniel Holloway on 04-09-2025 MCHC (RBC) [Mass/Vol] 34.4 g/dL 32-36 [facility] Mean platelet volume determi nationOrdered By: Ottoniel Holloway on 04-09-2025 Platelet mean volume (Bld) [Entitic vol] 9.0 fL 6.2-12.0 [facility] Monocyte percentageOrdered B y: Ottoniel Holloway on 04-09-2025 Monocytes/100 WBC (Bld) 10.2 % High 0-10 [facility] Neutrophil percentageOrdered By: Ottoniel Holloway on 04-09-2025 Neutrophils/100 WBC (Bld) 59.5 % 47-70 [facility] Nucleated red blood cell per centageOrdered By: Ottoniel Holloway on 04-09-2025 Nucleated RBC/100 WBC (Bld) [Ratio] 0 % 0-5 [facility] Platelet countOrdered By: Adan Holloway on 04-09-2025 Platelets (Bld) [#/Vol] 231 10*3/uL 150-450 [facility] Potassium measurement (mass/ volume)Ordered By: Ottoniel Holloway on 04-09-2025 Potassium (Unsp spec) [Mass/Vol] 3.7 mmol/L 3.3-5.1 [facility] RBC Auto (Bld) [#/Vol]Ordere d By: Ottoniel Holloway on 04-09-2025 RBC (Bld) [#/Vol] 4.02 10*6/uL Low 4.6-6.2 [facility] Serum creatinine measurement (mass/volume)Ordered By: Ottoniel Holloway on 04-09-2025 Creatinine [Mass/Vol] 0.79 mg/dL 0.70-1.20 [facility] Serum globulin measurementOr dered By: Ottoniel Holloway on 04-09-2025 Globulin (S) [Mass/Vol] 2.8 g/dL 2.2-4.2 [facility] Serum glucose measurement (m ass/volume)Ordered By: Ottoniel Holloway on 04-09-2025 Glucose [Mass/Vol] 115 mg/dL High 70-99 [facility] Serum or plasma alanine kong otransferase (ALT) measurementOrdered By: Ottoniel Holloway on 04-09-2025 ALT [Catalytic activity/Vol] 18 U/L <47 [facility] Serum or plasma albumin cece urement (mass/volume)Ordered By: Ottoniel Nguyen on 04-09-2025 Albumin [Mass/Vol] 4.0 g/dL 3.5-5.0 [facility] Serum or plasma alkaline nara sphatase measurementOrdered By: Ottoniel Holloway on 04-09-2025 ALP [Catalytic activity/Vol] 107 U/L 40-129 [facility] Serum or plasma calcium cece urement (mass/volume)Ordered By: Ottoniel Nguyen on 04-09-2025 Calcium [Mass/Vol] 8.2 mg/dL 7.6-11.0 [facility] Serum or plasma urea nitroge n measurement (mass/volume)Ordered By: Ottoniel Holloway on 04-09-2025 Urea nitrogen [Mass/Vol] 16 mg/dL 4-19 [facility] Sodium levelOrdered By: Martir Holloway on 04-09-2025 Sodium [Moles/Vol] 136 mmol/L 133-145 [facility] Total proteinOrdered By: Juan Holloway on 04-09-2025 Protein [Mass/Vol] 6.8 g/dL 5.9-8.4 [facility] White blood cell (WBC) count Ordered By: Ottoniel Holloway on 04-09-2025 WBC (Bld) [#/Vol] 6.6 10*3/uL 4.4-11.0 [facility] Abdomen/Pelvis W IV Cont ONL Yon 04-08-2025 Abdomen/Pelvis W IV Cont ONLY [facility] Services [address] [place] [address] Abdomen/Pelvis W IV Cont ONLY MR#: [id number] Acct: [id number] Name: SAMARA MOON Rep #: [id number] : 1970 M 54 From: Paul Sanabria MD PCP: Care Physician,No Primary Status: REG ER Study: Abdomen/Pelvis W IV Cont ONLY Date of Exam: Exam# [id number] Ordering Dr: Ottoniel Holloway DO PROCEDURE: ABDOMEN/PELVIS W IV CONT ONLY 04/08/2025 REASON FOR EXAM: ABDOMINAL PAIN TECHNIQUE: ABDOMEN/PELVIS W IV CONT ONLY Coronal and Sagittal reconstruction series were provided. CONTRAST: Isovue 370 VOLUME: 93 mL One or more dose reduction techniques were used (e.g., Automated exposure control, adjustment of the mA and/or kV according to patient size, use of iterative reconstruction technique. RADIATION DOSE SUMMARY: CTDlvol: 21.20 mGy DLP: 1078.19 mGycm COMPARISON: None. FINDINGS: The lung bases are clear. The peripheral soft tissues are unremarkable. Mild degenerative changes of the spine. Normal caliber abdominal aorta. No suspicious lymphadenopathy. The liver is unremarkable. Cholelithiasis. The pancreas, spleen, and adrenals are unremarkable. Symmetric enhancement of the bilateral kidneys. No hydroureteronephrosi s. The urinary bladder is unremarkable. The reproductive organs are unremarkable. Scattered colonic diverticuli. No surrounding inflammation. Normal caliber large and small bowel. CT/Abdomen/Pelvis W IV Cont ONLY IMPRESSION: Cholelithiasis. Reading Location: [id number] CC: Dr. Ottoniel Holloway DO; No Primary Care Physician Meteorology Teacher: Signed Normal [facility] Emergency Department Summary on 04-08-2025 Emergency Department Summary [facility] Medical Records Department [address] [place] [address] Emergency Department Summary 04/08/25 MR#: [id number] Acct: [id number] Name: SAMARA MOON Rep #: [id number] : 1970 54 From: Ottoniel Holloway DO PCP: Care Physician,No Primary Status:DEP ER Location: ED HPI History of Present Illness Chief Complaint: Abd Pain Narrative Narrative: Chief complaint and HPI: Epigastric abdominal pain. 54-year-old male with no significant past medical history presents for evaluation of epigastric abdominal pain. Patient states he has been having episodic epigastric abdominal pain for the past week. Not associated with eating. Denies any history of gallbladder disorder. States he occasionally eats spicy foods but has not in several days. Denies any daily alcohol abuse. Denies any fever, chills, shortness of breath, chest pain, nausea, vomiting, diarrhea, constipation, dysuria. Review of systems: See HPI Medications: As listed on the chart Allergies: As listed on the chart PFSH: Per chart Vital signs: As listed on the chart. Reviewed. Physical exam: Gen: A O x3, NAD Head: Normocephalic, atraumatic Eyes: No sclera icterus, conjunctiva clear ENT: Moist mucous membranes Neck: Trachea midline, No JVD CV: RRR, no murmurs, no peripheral edema Resp: Lungs CTA BL, no w/r/c GI: Abd soft, non-distended, tender to palpation in the epigastrium, no r/r/g Musc: Full ROM, no deformity Skin: Warm, dry Neuro: Alert, oriented, grossly intact, sensation intact Psych: Cooperative, appropriate mood and affect PFS PFS Home Medications ???Medication ???Instructions ???Recorded ???Last Taken ???Type etodolac 500 mg tablet 500 mg PO BID #60 tabs 12/12/24 Un known Rx ondansetron 4 mg disintegrating 4 mg PO Q8H PRN PRN Nausea #10 tab s 04/09/25 Unknown Rx tablet Allergy/AdvReac Type Severity Reaction Status Date / Time No Known Allergies Allergy Verified 04/08/25 23:32 Surgical History S/P open reduction and internal fixation (ORIF) of fracture of right patella Social History Smoking Status: Never smoker alcohol intake: never substance use type: does not use EXAM Physical Exam Const Vital Signs: 04/08/25 23:27 04/09/25 02:02 04/09/25 04:00 Temperature 98.1 F Temperature Source Oral Pulse Rate 70 63 61 Respiratory Rate 16 15 16 Blood Pressure 124/76 H 111/72 115/78 Blood Pressure Mean 92 85 90 Pulse Ox 99 98 99 Oxygen Delivery Method Room Air Room Air Room Air 04/09/25 04:23 Temperature 98.3 F Temperature Source Pulse Rate 61 Respiratory Rate 16 Blood Pressure 115/78 Blood Pressure Mean 90 Pulse Ox 99 Oxygen Delivery Method MDM MDM MDM Narrative Medical decision making narrative: 54-year-old male with no significant past medical history presents for evaluation of epigastric abdominal pain. Differential diagnosis includes but is not limited to pancreatitis, GERD, PUD, cholecystitis, choledocholithiasis. NS bolus, morphine, Pepcid, Zofran ordered for symptoms. Abdominal pain workup ordered including CT abdomen pelvis. CBC without leukocytosis or anemia. CMP unremarkable. Lipase mildly elevated at 99.CT abdomen pelvis shows cholelithiasis without acute cholecystitis. Pancreas unremarkable. On reevaluation, patient states his pain has resolved. He was updated of all his results and the findings. He was told he needs to return back to the ED if symptoms recur or worsen or change. He confirmed understanding. Follow-up with general surgery and PCP. Suspect patient's symptoms are secondary to biliary colic. Official predictive maintenance technician was used throughout the entire encounter. Impression: 1. Cholelithiasis with biliary colic Lab Data Labs: Laboratory Results - last 24 hr 04/09/25 00:13 WBC 6.6 RBC 4.02 L Hgb 13.3 Hct 38.7 L MCV 96.3 H MCH 33.1 H MCHC 34.4 RDW Std Deviation 44.0 H RDW Coeff of Ike 12.4 Plt Count 231 MPV 9.0 Immature Gran % (Auto) 0.300 Neut % (Auto) 59.5 Lymph % (Auto) 27.4 [place] % (Auto) 10.2 H Eos % (Auto) 2.3 Baso % (Auto) 0.3 Absolute Neuts (auto) 3.9 Absolute Lymphs (auto) 1.81 Nucleated RBC % 0 Sodium 136 Potassium 3.7 Chloride 104 Carbon Dioxide 24.2 Anion Gap 8 BUN 16 Creatinine 0.79 Estim Creat Clear Calc 112.00 Est GFR (MDRD) Non-Af 105 BUN/Creatinine Ratio 20.2 H Glucose 115 H Calcium 8.2 Total Bilirubin 0.49 Direct Bilirubin 0.19 AST 26 ALT 18 Alkaline Phosphatase 107 Total Protein 6.8 Albumin 4.0 Globulin 2.8 Lipase 99 H Radiography Diagnostic Testing: Cli (more content not included)... Normal [facility] Knee 4 or More Viewson 12-12 Knee 4 or More Views [facility] Imaging Services [address] [address] Knee 4 or More Views MR#: [id number] Acct: [id number] Name: SAMARA MOON Rep #: [id number] : 1970 M 54 From: Thanh Trujillo MD PCP: Care Physician,No Primary Status: DEP AMB Study: Knee 4 or More Views Date of Exam: 12/12/24 Exam# [id number] Ordering Dr: Deon Campo DO PROCEDURE: KNEE 4 OR MORE VIEWS (RADKN), 12/12/2024 REASON FOR EXAM: PAIN TECHNIQUE: AP, lateral, AP tunnel, and sunrise views of the right knee were obtained. COMPARISON: None FINDINGS: ORIF proximal right tibia/tibial plateau utilizing a lateral plate and screws as well as free interfragmentary screws. Associated posttraumatic deformity. Fracture/dislocation : No visible acute displaced fracture. Slight lateral [...] 3. Additional description as above. Reading Location: [id number] CC: Dr. Deon Campo DO; No Primary Care Physician Meteorology Teacher: Signed Normal [facility] Orthopedic Visit Reporton Orthopedic Visit Report [facility] [address] [place] [address] [address] [place] [address] OFFICE VISIT Date of Service: 12/12/24 MR#: [id number] Acct: [id number] Name: SAMARA MOON Rep #: [id number] : 1970 Provider: Dr. Deon littlejohn DO Age/Sex: 54/M Location: [facility] Status: Signed Intake Vital Signs 11/08/24 15:36 [...] the decisions made by me, Dr. Deon Campo, DO 12/12/24 0804. Part of today???s visit was documented by Mackenzie Guzman ATC, acting as scribe. SAMARA BLACKMON is a 54 year old M here today for right knee pain. He is Guyanese-speaking and we did use a virtual translating assistance during the office visit today. He describes the pain over the anterior aspect of the knee and more on sides of the knee. He complains of pain down into he ankle at times. He denies any numbness/tingling. When he is working the pain is a lot stronger when he is working. He works doing [employer]. He states he works in a fast [...] Performing Provider: Deon Campo DO Performing Location: [facility] Administered by: Deon Campo DO on 12/12/24 11:39 Dose Route Admin Location Dispensed Lot Number Expiration Date NDC Man ufacturer 60 mg intra-articular Right Knee 1.5 mL [id number] 04/28/26 2248-6498-27 PHARM ACIA-UPJHN Supplemental Info 12/12/2024 x-ray right [...] fracture of right tibia Z87.81 CPT Codes digital sales manager.knee () Assessment and Plan Assessment and Plan (1) Post-traumat (more content not included)... Normal [facility] XR KNEE 3V AP/LAT/MERCHANT R Ton [...] fracture. Degenerative disease of the right knee. Meteorology Teacher: PSCB Transcribe Date/Time: Nov 25 2024 3:46P Dictated by : JAIMIE BUENO MD This examination was interpreted and the report reviewed and electronically signed by: JAIMIE BUENO MD on Nov 25 2024 3:47PM EST [id number] Normal [facility] Lipid Profileon 11-09-2024 Cholesterol [Mass/Vol] 185 mg/dL Normal 200 [facility] Comment on above: Order Comment: Comme nts: NPO at [place] prior to lipid panel Result Comment: <200 mg/dL Desirable 200-240 mg/dL Borderline >240 mg/dL High Risk Performed By: #### L 500.4100 #### [facility] [address] [place], [address] Cholesterol in HDL [Mass/Vol] 44 mg/dL Normal [facility] Comment on above: Order Comment: Commdavid nts: NPO at [place] prior to lipid panel Result Comment: The drugs N-Acetylcysteine and Metamizole may falsely depress this assay. Reference Range HDL <40 mg/dL Low HDL Cholesterol HDL >or= 60 mg/dL High HDL Cholesterol Performed By: #### L 500.4100 #### [facility] [address] [place], [address] Cholesterol in LDL [Mass/Vol] 113 mg/dL Normal 0-130 [facility] Comment on above: Order Comment: Comme nts: NPO at [place] prior to lipid panel Performed By: #### L 500.4100 #### [facility] [address] [place], [address] Cholesterol in VLDL [Mass/Vol] 28 mg/dL Normal 5-40 [facility] Comment on above: Order Comment: Comme nts: NPO at [place] prior to lipid panel Performed By: #### L 500.4100 #### [facility] [address] [place], [address] Triglyceride [Mass/Vol] 139 mg/dL Normal [facility] Comment on above: Order Comment: Comme nts: NPO at [place] prior to lipid panel Result Comment: The drugs N-Acetylcysteine and Metamizole may falsely depress this assay. Serum Triglycerides Reference Interval Normal <150 mg/dL Borderline high 150 - 199 mg/dL High 200 - 499 mg/dL Very High > or = 500 mg/dL Performed By: #### L 500.4100 #### [facility] [address] [place], [address] 12 Lead EKGon 11-08-2024 12 Lead EKG [facility] Cardiovascular Services [address] [place] [address] 12 Lead EKG 11/08/24 0535 MR#: [id number] Acct: [id number] Name: SAMARA MOON Rep #: [id number] : 1970 54 From: Bijan Reich MD Attending Dr: Dr. Armando Mathur, DO Status: ADM VIELKA Ordering Dr: Farrukh Victor DO Date: 11/08/24 [place] [facility] [place]: M H Admitted: 11/08/24 Test Reason [...] undetermined Abnormal ECG Confirmed by Bijan Reich ([id number]), development editor AILIN HUTCHINSON ([id number]) on 11/09/2024 11:18:38 AM Referred By: Confirmed By: Bijan Reich 11/09/24 1118 Date Bijan Reich MD CC: Dr. Armando Mathur, DO; Dr. Farrukh Victor, DO; No Primary Care Physician Signed Normal [facility] Basic Metabolic Profile (BMP )on 11-08-2024 BUN/CRE 29.4 RATIO High 10-20 [facility] Comment on above: Order Comment: 'TROP ' Serial specimen #1, #2 or #3: 1 Performed By: #### L 500.2500, L501.4020, L300.4310, L300.3900, L100.0100 ####[facility] [address] [place], [address] CA,Total 8.3 mg/dL Low 8.5-10.1 [facility] Comment on above: Order Comment: 'TROP ' Serial specimen #1, #2 or #3: 1 Performed By: #### L 500.2500, L501.4020, L300.4310, L300.3900, L100.0100 ####[facility] [address] [place], [address] Chloride [Moles/Vol] 107 mmol/L Normal 98-107 [facility] Comment on above: Order Comment: 'TROP ' Serial specimen #1, #2 or #3: 1 Performed By: #### L 500.2500, L501.4020, L300.4310, L300.3900, L100.0100 ####[facility] [address] [place], [address] CO2 [Moles/Vol] 25.0 mmol/L Normal 21.0-32.0 [facility] Comment on above: Order Comment: 'TROP ' Serial specimen #1, #2 or #3: 1 Performed By: #### L 500.2500, L501.4020, L300.4310, L300.3900, L100.0100 ####[facility] [address] [place], [address] Creatinine [Mass/Vol] 0.65 mg/dL Low 0.70-1.30 [facility] Comment on above: Order Comment: 'TROP ' Serial specimen #1, #2 or #3: 1 Result Comment: The validity of the calculated GFR GFRAA in patients over 70 years has not been determined. Clinical correlation is essential. Performed By: #### L 500.2500, L501.4020, L300.4310, L300.3900, L100.0100 ####[facility] [address] [place], [address] ECRCL 138.72 ml/min Normal [facility] Comment on above: Order Comment: 'TROP ' Serial specimen #1, #2 or #3: 1 Performed By: #### L 500.2500, L501.4020, L300.4310, L300.3900, L100.0100 ####[facility] [address] [place], [address] EST GFR - AA 165 mL/min Normal >60 [facility] Comment on above: Order Comment: 'TROP ' Serial specimen #1, #2 or #3: 1 Result Comment: Afri can Indonesian GFR Calc Performed By: #### L 500.2500, L501.4020, L300.4310, L300.3900, L100.0100 ####[facility] [address] [place], [address] GAP 6 Normal 5-15 [facility] Comment on above: Order Comment: 'TROP ' Serial specimen #1, #2 or #3: 1 Performed By: #### L 500.2500, L501.4020, L300.4310, L300.3900, L100.0100 ####[facility] [address] [place], [address] GFR/1.73 sq M.predicted among non-blacks MDRD (S/P/Bld) [Vol rate/Area] 136 mL/min/{1.73_m2} Normal >60 [facility] Comment on above: Order Comment: 'TROP ' Serial specimen #1, #2 or #3: 1 Result Comment: Non- GFR Calc Performed By: #### L 500.2500, L501.4020, L300.4310, L300.3900, L100.0100 ####[facility] [address] [place], [address] Glucose [Mass/Vol] 110 mg/dL High 74-106 [facility] Comment on above: Order Comment: 'TROP ' Serial specimen #1, #2 or #3: 1 Result Comment: Fast ing Glucose result from 100 to 125 mg/dL suggests IMPAIRED HOMEOSTASIS per A.D.A. criteria. Performed By: #### L 500.2500, L501.4020, L300.4310, L300.3900, L100.0100 ####[facility] [address] [place], [address] Potassium [Moles/Vol] 3.5 mmol/L Normal 3.5-5.1 [facility] Comment on above: Order Comment: 'TROP ' Serial specimen #1, #2 or #3: 1 Performed By: #### L 500.2500, L501.4020, L300.4310, L300.3900, L100.0100 ####[facility] [address] [place], [address] Sodium [Moles/Vol] 139 mmol/L Normal 136-145 [facility] Comment on above: Order Comment: 'TROP ' Serial specimen #1, #2 or #3: 1 Performed By: #### L 500.2500, L501.4020, L300.4310, L300.3900, L100.0100 ####[facility] [address] [place], [address] Urea nitrogen [Mass/Vol] 19 mg/dL High 7-18 [facility] Comment on above: Order Comment: 'TROP ' Serial specimen #1, #2 or #3: 1 Performed By: #### L 500.2500, L501.4020, L300.4310, L300.3900, L100.0100 ####[facility] [address] [place], [address] Bedside Glucoseon 11-08-2024 FINGERSTICK GLU 105 mg/dL Normal 74-106 [facility] Comment on above: Result Comment: MARINO ZHAO OF PATIENT CARE PER NURSING PROTOCOL Performed By: #### L 501.080 #### [facility] [address] [place], [address] Brain without Contraston Brain without Contrast [facility] Imaging Services [address] [address] Brain without Contrast MR#: [id number] Acct: [id number] Name: SAMARA MOON Rep #: [id number] : 1970 M 54 From: Norma Rodriguez nd, MD PCP: Care Physician,No Primary Status: ADM VIELKA Study: Brain without Contrast Date of Exam: 11/08/24 Exam# [id number] Ordering Dr: Armando Mathur DO PROCEDURE: BRAIN [...] Contrast IMPRESSION: Unremarkable brain MRI. Reading Location: [id number] CC: Dr. Armando Mathur, ; No Primary Care Physician Meteorology Teacher: Signed Normal [facility] CBC W/Diff, Automatedon 10-29 Absolute Lymph 2.14 X10 3/uL Normal 0.83-4.51 [facility] Comment on above: Performed By: #### L 500.2500, L501.4020, L300.4310, L300.3900, L100.0100 ####[facility] [address] [place], [address] Absolute Neut 3.4 X10 3/uL Normal 2.0-7.7 [facility] Comment on above: Performed By: #### L 500.2500, L501.4020, L300.4310, L300.3900, L100.0100 ####[facility] [address] [place], [address] Basophils/100 WBC (Bld) 0.5 % Normal 0-1 [facility] Comment on above: Performed By: #### L 500.2500, L501.4020, L300.4310, L300.3900, L100.0100 ####[facility] [address] [place], [address] Eosinophils/100 WBC (Bld) 1.7 % Normal 0-5 [facility] Comment on above: Performed By: #### L 500.2500, L501.4020, L300.4310, L300.3900, L100.0100 ####[facility] [address] [place], [address] Erythrocyte distribution width (RBC) [Ratio] 12.6 % Normal 11.6-14.6 [facility] Comment on above: Performed By: #### L 500.2500, L501.4020, L300.4310, L300.3900, L100.0100 ####[facility] [address] [place], [address] Hematocrit (Bld) [Volume fraction] 39.8 % Low 40-54 [facility] Comment on above: Performed By: #### L 500.2500, L501.4020, L300.4310, L300.3900, L100.0100 ####[facility] [address] [place], [address] Hemoglobin (Bld) [Mass/Vol] 14.0 g/dL Normal 13.0-16.5 [facility] Comment on above: Performed By: #### L 500.2500, L501.4020, L300.4310, L300.3900, L100.0100 ####[facility] [address] [place], [address] IG% 0.500 Normal 0.0-0.9 [facility] Comment on above: Result Comment: IG% - Immature Granulocytes (promyelocytes, myelocytes and metamyelocytes) > 1% indicates that a LEFT SHIFT is Present. Performed By: #### L 500.2500, L501.4020, L300.4310, L300.3900, L100.0100 ####[facility] [address] [place], [address] Lymphocytes/100 WBC (Bld) 32.8 % Normal 19-41 [facility] Comment on above: Performed By: #### L 500.2500, L501.4020, L300.4310, L300.3900, L100.0100 ####[facility] [address] [place], [address] MCH (RBC) [Entitic mass] 32.7 pg High 27.0-32.0 [facility] Comment on above: Performed By: #### L 500.2500, L501.4020, L300.4310, L300.3900, L100.0100 ####[facility] [address] [place], [address] MCHC (RBC) [Mass/Vol] 35.2 g/dL Normal 32-36 [facility] Comment on above: Performed By: #### L 500.2500, L501.4020, L300.4310, L300.3900, L100.0100 ####[facility] [address] [place], [address] MCV (RBC) [Entitic vol] 93.0 fL Normal 80-94 [facility] Comment on above: Performed By: #### L 500.2500, L501.4020, L300.4310, L300.3900, L100.0100 ####[facility] [address] [place], [address] Monocytes/100 WBC (Bld) 12.7 % High 0-10 [facility] Comment on above: Performed By: #### L 500.2500, L501.4020, L300.4310, L300.3900, L100.0100 ####[facility] [address] [place], [address] Neutrophils/100 WBC (Bld) 51.8 % Normal 47-70 [facility] Comment on above: Performed By: #### L 500.2500, L501.4020, L300.4310, L300.3900, L100.0100 ####[facility] [address] [place], [address] Nucleated RBC (Bld) [#/Vol] 0 10*3/uL Normal 0-5 [facility] Comment on above: Performed By: #### L 500.2500, L501.4020, L300.4310, L300.3900, L100.0100 ####[facility] [address] [place], [address] Platelet mean volume (Bld) [Entitic vol] 8.6 fL Normal 6.2-12.0 [facility] Comment on above: Performed By: #### L 500.2500, L501.4020, L300.4310, L300.3900, L100.0100 ####[facility] [address] [place], [address] Platelets (Bld) [#/Vol] 245 10*3/uL Normal 150-450 [facility] Comment on above: Performed By: #### L 500.2500, L501.4020, L300.4310, L300.3900, L100.0100 ####[facility] [address] [place], [address] RBC (Bld) [#/Vol] 4.28 10*6/uL Low 4.6-6.2 [facility] Comment on above: Performed By: #### L 500.2500, L501.4020, L300.4310, L300.3900, L100.0100 ####[facility] [address] [place], [address] RDW SD 42.5 fl Normal 35.1-43.9 [facility] Comment on above: Performed By: #### L 500.2500, L501.4020, L300.4310, L300.3900, L100.0100 ####[facility] [address] [place], [address] WBC (Bld) [#/Vol] 6.5 10*3/uL Normal 4.4-11.0 [facility] Comment on above: Performed By: #### L 500.2500, L501.4020, L300.4310, L300.3900, L100.0100 ####[facility] [address] [place], [address] Chest 1 Viewon 11-08-2024 Chest 1 View [facility] Imaging Services [address] [address] Chest 1 View MR#: [id number] Acct: [id number] Name: SAMARA MOON Rep #: [id number] : 1970 M 54 From: Paul Posey DO PCP: Care Physician,No Primary Status: REG ER Study: Chest 1 View Date of Exam: 11/08/24 Exam# [id number] Ordering Dr: Farrukh Victor DO PROCEDURE: CHEST [...] Farrukh Victor DO; No Primary Care Physician Meteorology Teacher: Signed Normal [facility] Emergency Department Summary on 11-08-2024 Emergency Department Summary [facility] Medical Records Department [address] [place] [address] Emergency Department Summary 11/08/24 MR#: [id number] Acct: [id number] Name: SAMARA MOON Rep #: [id number] : 1970 54 From: Farrukh Victor DO PCP: Care Physician,No Primary Status:REG ER Location: ED HPI History of Present Illness Chief Complaint: Dizziness Narrative Narrative: sign language interpreter used professional services Patient is a 54-year-old [...] to obtain (more content not included)... Normal [facility] H AND P Exam - Hospitaliston 11-08-2024 H&P Exam - Hospitalist [facility] Medical Records Department [address] [place] [address] H P Exam - Hospitalist 11/08/24 0747 MR#: [id number] Acct: [id number] Name: SAMARA MOON Rep #: [id number] : 1970 54 From: Armando Mathur [...] posterior circulation stroke. Patient does not speak Senegalese and with his permission I was able to speak to him and some limited Guyanese but also you using Google translate. PFSH Medical History no medical history no medical history Home Medications ???Medication ???Instructions ???Recorded ???Last Taken ???Type NK 11/08/24 Unknown History Allergy/AdvReac Type Severity Reaction Status Date / Time No Known Allergies Allergy Verified 11/08/24 04:54 Family History no significant family his Surgical History no surgical history Social History (Updated 11/08/24 @ 07:[address] Armando Mathur, ) Smoking Status: Never smoker alcohol intake: never [...] (BMI) 3 (more content not included)... Normal [facility] L501.4020on 11-08-2024 TROPONIN-I HS 13 pg/mL Normal 3.0-78.0 [facility] Comment on above: Order Comment: 'TROP ' Serial specimen #1, #2 or #3: 1 Result Comment: Marc bah Note: New Test Units and Gender Specific Reference Ranges. For more information see Policy Stat Procedure [place] High Sensitivity Troponin (TNIH) and attachments. Performed By: #### L 500.2500, L501.4020, L300.4310, L300.3900, L100.0100 ####[facility] [address] [place], [address] Partial Thromboplast Timeon 11-08-2024 aPTT Coag (Bld) [Time] 29.6 s Normal 24.1-36.2 [facility] Comment on above: Performed By: #### L 500.2500, L501.4020, L300.4310, L300.3900, L100.0100 ####[facility] [address] [place], [address] Prothrombin Time w/INRon INR Coag (PPP) [Relative time] 1.0 {INR} Normal [facility] Comment on above: Performed By: #### L 500.2500, L501.4020, L300.4310, L300.3900, L100.0100 ####[facility] [address] [place], [address] PT Coag (PPP) [Time] 13.4 s Normal 11.7-14.9 [facility] Comment on above: Performed By: #### L 500.2500, L501.4020, L300.4310, L300.3900, L100.0100 ####[facility] [address] [place], [address] STROKE Brain/Head without Co nton 11-08-2024 STROKE Brain/Head without Cont [facility] Imaging Services [address] [address] STROKE Brain/Head without Cont MR#: [id number] Acct: [id number] Name: SAMARA MOON Rep #: [id number] : 1970 M 54 From: Paul Posey DO PCP: Care Physician,No Primary Status: REG ER Study: STROKE Brain/Head without Cont Date of Exam: 0 11/08/24 Exam# [id number] Ordering Dr: Farrukh Victor DO PROCEDURE: STROKE [...] use of iterative reconstruction technique). Reading Location: [facility] CC: Dr. Farrukh Victor DO; No Primary Care Physician Meteorology Teacher: Signed Normal [facility] STROKE CTA Head AND Neck W/C onon 11-08-2024 STROKE CTA Head AND Neck W/Con [facility] Imaging Services [address] [place], [place] [address] STROKE CTA Head AND Neck W/Con MR#: [id number] Acct: [id number] Name: SAMARA MOON Rep #: [id number] : 1970 M 54 From: Paul Posey DO PCP: Care Physician,No Primary Status: REG ER Study: STROKE CTA Head AND Neck W/Con Date of Exam: 0 11/08/24 Exam# [id number] Ordering Dr: Farrukh Victor DO PROCEDURE: STROKE [...] hemodynamic stenosis or vascular occlusion within the hctuar-ky-Abfuzq 2. No significant hemodynamic stenosis or vascular occlusion involving the carotid arteries bilaterally. 3. Left vertebral artery is slightly dominant. 4. Mild mucosal thickening within the inferior right maxillary sinus. One or more dose reduction techniques were used (e.g., Automated exposure control, adjustment of the mA and/or kV according to patient size, use of iterative reconstruction technique). Reading Location: [facility] CC: Dr. Farrukh Victor DO; No Primary Care Physician Meteorology Teacher: Signed [facility] Office Visit Reporton 2023 Office Visit Report [facility] [address] [place] [address] OFFICE VISIT Date of Service: 08/30/24 MR#: [id number] Acct: [id number] Patient: SAMARA MOON Rep #: [id number] : 1970 Provider: GAMALIEL Dc Age/Sex: 53/M Location: [facility] Status: Signed Intake Vital Signs 08/29/24 22:27 [...] Roque Signature: Date (if applicable) CC: Normal [facility] Emergency Department Summary on 08-29-2024 Emergency Department Summary [facility] Medical Records Department [address] [place] [address] Emergency Department Summary 08/29/24 MR#: [id number] Acct: [id number] Name: SAMARA MOON Rep #: [id number] : 1970 53 From: Filippo Chery MD PCP: Care Physician,No Primary Status:REG ER Location: ED HPI History of Present Illness HPI Narrative: 53-year-old male no significant past medical or surgical history. Mjaqb-pqig-javtwwou. Was at work today tripped try to catch himself when he grabbed the machine to keep himself upright he cut his left hand on the ring and small finger on the dorsal side at the PIP. No other injuries. States his tetanus is up-to-date 4 years ago when he still lived in [place]. Denies any other complaints or injuries. Chief Complaint: Laceration Informant: patient Occured/Mechanism Mechanism/Context: Yes injury Onset/Context/Timing Onset: Today Context: Sudden Onset Timing: Continuous Current Severity: Mild Maximum Severity: Mild Associated Symptoms Associated Symptoms: Negative for Parasthesia, Weakness or Loss of Funtion Narrative Narrative: 53-year-old male does not speak Senegalese. Using interpreter deaf iPad. He injured his left hand causing a laceration of the small and ring finger at work tonight. Tetanus up-to-date. Tetanus Immunization: <5 years Prior similar symptoms: No Recent Illness/Hospitalizat ion: No PFSH PFSH Medical History no medical [...] Denies anxiety Endocrine Endocrinology: Denies cold intolerance Hematologic/Lymphati c Hematologic/Lymphati c: Denies easy bleeding Allergic/Immunologic Allergic/Immunologic ED: Denies [...] laceration about (more content not included)... Normal [facility] Vital Signs Date Time Vital Sign Value Performing Clinician Mark stauffer 04-17-2025 13:15-0400 Body height 170 cm No Primary Care Physician [facility] 04-17-2025 13:15-0400 Body mass index (BMI) [Ratio] 30.2 kg/m2 No Primary Care Physician [facility] 04-17-2025 13:15-0400 Body weight 87.54 kg No Primary Care Physician [facility] 04-17-2025 13:15-0400 Diastolic blood pressure 66 mm[Hg] No Primary Care Physician [facility] 04-17-2025 13:15-0400 Heart rate 68 /min No Primary Care Physician [facility] 04-17-2025 13:15-0400 Respiratory rate 16 /min No Primary Care Physician [facility] 04-17-2025 13:15-0400 SaO2% (BldA) [Mass fraction] 97 % No Primary Care Physician [facility] 04-17-2025 13:15-0400 Systolic blood pressure 104 mm[Hg] No Primary Care Physician [facility] 04-09-2025 04:23-0400 Body temperature 98.3 [degF] No Primary Care Physician [facility] 04-09-2025 04:23-0400 Diastolic blood pressure 78 mm[Hg] No Primary Care Physician [facility] 04-09-2025 04:23-0400 Heart rate 61 /min No Primary Care Physician [facility] 04-09-2025 04:23-0400 Respiratory rate 16 /min No Primary Care Physician [facility] 04-09-2025 04:23-0400 SaO2% (BldA) [Mass fraction] 99 % No Primary Care Physician [facility] 04-09-2025 04:23-0400 Systolic blood pressure 115 mm[Hg] No Primary Care Physician [facility] 04-08-2025 23:27-0400 Body height 170.18 cm No Primary Care Physician [facility] 04-08-2025 23:27-0400 Body mass index (BMI) [Ratio] 30.4 kg/m2 No Primary Care Physician [facility] 04-08-2025 23:27-0400 Body weight 88.22 kg No Primary Care Physician [facility] 12-12-2024 10:45-0400 Body mass index (BMI) [Ratio] 31.1 kg/m2 No Primary Care Physician [facility] 12-12-2024 10:45-0400 Body weight 90.32 kg No Primary Care Physician [facility] Encounters Encounter Date Encounter Type Care Provider Facility Start: 05-15-2025 ambulatory No Primary Car e Physician Facility:[facility] Start: 04-17-2025 End: 04-17-[address] Tamar Pabon MD -[facility] Work Phone: Start: 04-17-2025 End: 04-17-2025 ambulatory No Primary Care Physician -[facility] Start: 04-08-2025 End: 04-09-2025 Emergency department patient visit No Primary Care Physician -Emergency Department Work Phone: Start: 12-12-2024 End: 12-12-[address] Deon Campo DO -[facility] Work Phone: Start: 12-12-2024 End: 12-12-2024 ambulatory No Primary Care Physician Facility:[facility] Start: 11-22-2024 End: 11-22-2024 ambulatory Facility:[facility] Start: 11-22-2024 End: 11-22-2024 Subsequent hospital visit by physician [facility] Work Phone: Radiology Start: 11-08-2024 End: 11-09-2024 ambulatory Jaskaran Celis Facility:[facility] Start: 08-30-2024 End: 08-30-2024 ambulatory No Primary Care Physician Facility:[facility] Start: 08-29-2024 End: 08-29-2024 Emergency department patient visit No Primary Care Physician Facility:[facility] Procedures Date Procedure Procedure Detail Performing Clinician Start: 04-09-2025 Estimated creatinine clearance No Primary Care Physician Start: 04-08-2025 Computed tomography of abdomen and pelvis with intravenous contrast No Primary Care Physician Start: 12-12-2024 X-ray of knee, four or more views No Primary Care Physician Plan of Treatment Date Care Activity Detail Author Start: 04-09-2025 [facility] Start: 2024 Prostate specific antigen measurement Prostate Cancer Screening Discussion [facility] Start: 05-29-2024 Covid-19 Vaccine ( season) Covid-19 Vaccine ( season) [facility] Start: 05-29-2024 Influenza vaccination Influenza Vaccine (#1) [facility] Start: 2019 Pneumococcal Vaccine: 50+ (1 of 1 - PCV) Pneumococcal Vaccine: 50+ (1 of 1 - PCV) [facility] Start: 2019 Shingrix Vaccine (1 of 2) Shingrix Vaccine (1 of 2) [facility] Start: 2014 Diabetes Screening Diabetes Screening [facility] Start: 2014 Screening for malignant neoplasm of colon [facility] Start: 2004 Lipid panel Lipid Screening [facility] Start: 1988 Hepatitis B Vaccine (1 of 3 - 19+ 3-dose series) Hepatitis B Vaccine (1 of 3 - 19+ 3-dose series) [facility] Start: 1988 Urine microalbumin profile DTaP,Tdap,Td Vaccine (1 - Tdap) [facility] Start: 1987 Anxiety Screening Anxiety Screening [facility] Start: 1987 Depression Screening Depression Screening [facility] Start: 1987 Hepatitis C screening Hepatitis C Screening [facility] Start: 1987 HIV screening HIV Screening [facility] Patient Education ED Gallstones with Biliary Colic [facility] Work Phone: Payers Date Payer Category Payer Self-pay 2024 [facility] Shield BLUE CARD PPO OOS [id number] 2024 Unknown [id number] Unknown [id number] Unknown [id number]. 2.462 Unknown [id number] [id number]. 2.462 Unknown [id number] 2.16.840.1.744139.3.579. 2.462 Unknown [id number] [id number]. 2.462 Unknown [id number] 2.16.840.1.494794.3.579. 2.462 Unknown [id number] 2.16.840.1.594239.3.579. 2.462 Unknown [id number] 2.16.840.1.725109.3.579. 2.462 Unknown [id number] 2.16.840.1.301602.3.579. 2.462 Unknown [id number]. 2.462 Social History Date Type Detail Facility Tobacco smoking status ARIS Tobacco smoking consumption unknown [facility] Start: 1970 Sex assigned at Not on file [facility] Gender identity Not on file [facility] Start: 04-08-2025 Tobacco smoking status NHIS Never smoked tobacco (finding) [facility] Start: 1970 Sex Assigned At Male W [facility] Evaluation note 04-17-2025 Note Date & Type Note Facility 04-17-2025 Evaluation note Diagnosis Onset Date Resolution Acid reflux acute April 17 12:58pm Dysphagia acute April 17 12:58pm Epigastric pain acute March 12:58pm Cholelithiasis inactive April 17, 2025 12:58pm [facility] Work Phone: Progress note 04-17-2025 Note Date & Type Note Facility 04-17-2025 Progress note [facility] Progress note 04-17-2025 Note Date & Type Note Facility 04-17-2025 Progress note Note Date/Time April 17, 2025 2:00pm [facility] [address] [place] [address] OFFICE VISIT Date of Service: 04/17/25 MR#: [id number] Acct: [id number] Name: SAMARA MOON ep #: [id number] : 1970 Provider: Dr. Mary Pabon MD Age/Sex: 54/M Location: [facility] Status: Signed Intake Vital Signs 04/08/25 23:27 04/17/25 13:15 Height 5 ft 7 in 5 ft 6.93 in Weight: 193 lb BMI 30.2 BP 104/66 Blood Pressure Location Rt brachial Position Sitting Respiration 16 Pulse 68 Pulse Oximetry (%) 97 Intake Visit Reasons: [facility] ER FU Chief Complaint: gallstones Arcade Game Technician Required: No Is patient in pain?: No Allergies No Known Allergies Allergy (Verified 04/17/25 13:17) Medications ?Medication ?Instructions ?Recorded ?Confirmed ?Type ondansetron 4 mg disintegrating 4 mg PO Q8H PRN PRN Na usea #10 tabs 04/09/25 04/17/25 Rx tablet omeprazole 40 mg capsule,delayed 40 mg PO QDAY #30 cap s 04/17/25 04/17/25 Rx release sucralfate 1 gram tablet 1 g PO QACHS #56 tabs 04/17/25 Rx Have you fallen in the past year?: Yes (Pt fell Aug 2024 pt was evaluated after) [facility] Medical History (Updated 04/17/25 @ 13:[address] Tamar Pabon MD) Acid reflux Abdominal pain Surgical History (Updated 04/17/25 @ 13:15 by Monie Pizano) S/P appendectomy S/P open reduction and internal fixation (ORIF) of fracture of right patella Social History (Reviewed 04/17/25 @ 13:15 by Monie Neri Smoking Status: Never smoker alcohol intake: never substance use type: does not use HPI HPI HPI: 54-year-old male presents for follow-up from ER due to epigastric pain and cholelithiasis. History obtained with help of medical pathology teacher as patient is Guyanese speaking. Patient states that his pain started Thursday 7 AM as he was eating orange. Was tolerable however had ribs about 1 PM pain progressively gotworse in the epigastric area until he came into the ER at 11 PM as the pain is similar to previous but that would usually resolve after laying down this [address] abdomen pelvis showed cholelithiasis patient had normal white blood cell count, hemoglobin, liver functions. Patient previously on EGD and colonoscopy 15 years ago in [place] diagnosed with gastritis. Patient states he did have some lab rabeprazole spyn-xgy-uvznyfs took 2 pills on and Thursday but was not on daily. Patient also admits to food getting stuck in his chest/lower esophagus bread and meats. Patient states yesterday morning he did wake up and was coughing or clearing his throat and had bright red blood at that2 to 3 AM. Patient has bowel movements daily denies any blood denies any familyhistory of colon cancer. ROS General General: Yes weight change; No appetite, fatigue, colon cancer or breast cancer HEENT HEENT: Yes difficulty swallowing; No eye injury, eye surgery, swollen glands or hoarseness Endo Endocrine: No thyroid disease, diabetes mellitus, thyroid cancer, Hair loss, heat intolerance or cold intolerance Skin Skin: No rash or changing moles Musc Musculoskeletal: Yes arthritis; No back problems, rheumatoid arthritis, gout or joint pain Cardio Cardiovascular: No murmur, pacemaker, heart disease, atrial fibrillation, high blood pressure, heart attack, heart stent, palpitations, shortness of breath with exertion or chest pain Psych Psychiatric: No depression, anxiety or hearing voices Resp Respiratory: No shortness of breath, No sleep apnea, No cough, No COPD, No asthma, No emphysema and No wheezing Gastro Gastrointestinal: Yes abdominal pain, Yes nausea or vomiting, No diarrhea, No constipation, No blood in stool, Yes acid reflux, No hemorrhoids, No ulcers, Yesgallbladder problem and No black,tarry stools Wes Hematologic: No blood thinners, No blood disorders, No bleeding, No anemia and No blood clots Neuro Neurologic: Yes numbness and Yes tingling Exam Const General: cooperative, healthy appearing, comfortable and no acute distress HENMT Head: normocephalic and atraumatic Neck Neck: supple Resp Effort & Inspection: normal respiratory effort Cardio Rate: regular rate GI Inspection: non-distended Palpation: soft, no hernias and tender in the epigastrum (Mild); with no reboundtenderness Skin General: no rashes or lesions noted Neuro General: CN's II-XI intact bilaterally Extrem General: normal to inspection Psych Mental Status: mental status grossly normal Attitude: cooperative Assessment and Plan Assessment and Plan (1) Epigastric pain: Status: Acute (2) Dysphagia: Status: Acute (3) Cholelithiasis: Status: Inactive (4) Acid reflux: Status: Acute Medications: New sucralfate Take an hour before meals and at bedtime. Must take on empty stomach; hold bedtime dose prior to procedure 1 g PO QACHS 56 tabs 0RF omeprazole swallow whole; do not crush, chew, dissolve, cut, break 40 mg PO QDAY 30 caps 3RF Discontinued etodolac No lo tome junto con otros STEVE. Esta dickson dave Tylenol. Discontinued Reason: None 500 mg PO BID 60 tabs 0RF Plan Will have patient hold his etodolac as NSAIDs can cause more issues with gastritis. Did discuss via medical pathology teacher difference causes of epigastric pain including gastritis and cholelithiasis. Patient's history does fit more with gastritis also with the dysphagia. Recommend patient have an EGD we will also give him a prescription for Carafate and omeprazole. Patient also is agreeable to get a screening colonoscopy as his last colonoscopy was 15 years ago in [place]. I have discussed the above with the patient. I have offered the patient esophagogastroduodenoscopy and colonoscopy for evaluation. I have explained the risks/benefits of the procedure and described the procedure. I have discussed the risks with the patient, including but not limited to: infection, bleeding, perforation of the GI tract requiring emergency surgery, inability to complete the procedure, injury to any internal organs, complications of anesthesia, etc. - the patient understands and agrees to proceed. I have answered all the patient's questions to the patient's satisfaction and the patient has no further questions. The patient has been given instructions for the colon cleansing preparation. 1 day of clears, MiraLAX Dulcolax prep Tamar Pabon M.D. Pager: [phone] [facility] [address] [place] [address], [facility], [address] [place] [address] Office: [phone] Coding Level of Care Code Off vis,new,level 4 Diagnoses Epigastric pain R10.13 Dysphagia R13.10 Cholelithiasis K80.20 Acid reflux K21.9 Clinical Quality Measures Falls Risk Screening/Assistive Devices Have you fallen in the past year?: Yes (Pt fell Aug 2024 pt was evaluated after) 04/17/25 1400 <Electronically signed by Tamar Robin am, MD> Date _ Tamar Pabon MD Cosigner Signature: Date (if applicable) CC: ~ [facility] Work Phone: Radiology Diagnostic study note 04-09-2025 Note Date & Type Note Facility 04-09-2025 Radiology Diagnostic study note [facility] Services [address] [place] [id number] Abdomen/Pelvis W IV Cont ONLY MR#: [id number] Acct: [id number] Name: SAMARA MOON Rep #: [id number] : 1970 M 54 From: Julio Sanabria MD PCP: Care Physician,No Primary Status: REG ER Study:Abdomen/Pelvis W IV Cont ONLY Date of E xam: 04/08/25 Exam# [id number] Ordering Dr: Ottoniel Mcpherson DO PROCEDURE: ABDOMEN/PELVIS W IV CONT ONLY 04/08/2025 REASON FOR EXAM: ABDOMINAL PAIN TECHNIQUE: ABDOMEN/PELVIS W IV CONT ONLY Coronal and Sagittal reconstruction series were provided. CONTRAST: Isovue 370 VOLUME: 93 mL One or more dose reduction techniques were used (e.g., Automated exposure control, adjustment of the mA and/or kV according to patient size, use of iterative reconstruction technique. RADIATION DOSE SUMMARY: CTDlvol: 21.20 mGy DLP: 1078.19 mGycm COMPARISON: None. FINDINGS: The lung bases are clear. The peripheral soft tissues are unremarkable. Mild degenerative changes of the spine. Normal caliber abdominal aorta. No suspicious lymphadenopathy. The liver is unremarkable. Cholelithiasis. The pancreas, spleen, and adrenals are unremarkable. Symmetric enhancement of the bilateral kidneys. No hydroureteronephrosis. The urinary bladder is unremarkable. The reproductive organs are unremarkable. Scattered colonic diverticuli. No surrounding inflammation. Normal caliber large and small bowel. CT/Abdomen/Pelvis W IV Cont ONLY IMPRESSION: Cholelithiasis. Reading Location: [place] [address] CC: Dr. 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: Signed [facility] Evaluation note 12-12-2024 Note Date & Type Note Facility 12-12-2024 Evaluation note Diagnosis Onset Date Resolution Post-traumatic arthritis of right lower leg acute December 12, 2024 10:25am Status post fracture of right tibia acute December 12, 2024 10:25am [facility] Work Phone: History of Present illness Narrative 11-22-2024 Audra [...] PATIENT PRESENTS WITH AN IMPLANTABLE OR ATTACHED CHIEF DEPUTY CLERK/BAILIFF: No RADIOLOGY DEPARTMENT: General X-ray: Exam(s) Completed: Lower Extremity X-Ray(s): Knee, AP / Lat / Merchant Right PERIPHERAL IV DATA: Not applicable SIGNED BY: Alondra Keating November 22, 2024 2:01 PM documented in this encounter [facility] Progress note 11-22-2024 Note Date & Type Note Facility 11-22-2024 Note HNO ID: [id number] Author: AUDRA CARRION Tech Service: ? Author [...] PATIENT PRESENTS WITH AN IMPLANTABLE OR ATTACHED CHIEF DEPUTY CLERK/BAILIFF: No RADIOLOGY DEPARTMENT: General X-ray: Exam(s) Completed: Lower Extremity X-Ray(s): Knee, AP / Lat / Merchant Right PERIPHERAL IV DATA: Not applicable SIGNED BY: Alondra Keating November 22, 2024 2:01 PM [facility] Discharge summary note 11-09-2024 Note Date & Type Note Facility 11-09-2024 Note [facility] Medical Records Department [address] [place] [address] Discharge Summary 11/09/24 0931 MR#: [id number] Acct: [id number] Name: SAMARA MOON Rep #: [id number] : 1970 54 From: Armando Mathur DO PCP: Care Physician,No Primary Status:ADM VIELKA Location: [place] [address] Providers Date of Admission: 11/08/24 Primary Care [...] Code(s): R42 - Dizziness and giddiness Plan: [place] to be more benign paroxysmal positional vertigo. [...] 07:46 IMPRESSION: Unremarkable brain MRI. Reading Location: [id number] D/C Instructions DC O2, CPAP, BIPAP Needs [...] vayas al dentista por la escupida de parul. Sospecho que probablemente sea por tus dientes, [...] Care Charges/Coding Visit Charges Inpatient E M: 74271 Disch Hosp 11/09/24 0937 Cosigner Signature (if applicable): CC: Dr. Armando Mathur DO; No Primary Care Physician Signed [facility] Discharge instructions Note Date & Type Note Facility Hospital Discharge instructions Additional Instructions Follow-up with general surgery for your gallstones. Follow-up with your primary care physician. If you do not have a primary care physician follow-up with the one listed above. Return back to the ED if symptoms recur, worsen, or change. Zofran as needed for nausea and vomiting. [facility] Work Phone: Reason for referral (narrative) Note Date & Type Note Facility Reason for referral (narrative) No reason for referral information available [facility] Work Phone: Summary Purpose Family History No Family History Records FoundNo Family History Records Found Advance Directives No Advanced Directives Records Found Advance Directive Response Recorded Date/ Time Do you have a Healthcare Power of Roofing Applicator? No April 08, 2025 11:27pm Chief Complaint and Reason for Visit Chief Complaint Admit Date RIGHT KNEE December 12, 2024 10: 25am Room 4 December 12, 2024 10: 54am abdominal pain April 08, 2025 11:2 5pm Reason for Visit Admit Date Post-traumatic arthritis of right lower leg December 12, 2024 10:25am Status post fracture of right tibia Russ h 2024 10:25am Chief Complaint Admit Date abdominal pain April 08, 2025 11:2 5pm [facility] ER FU April 17, 2025 12: 58pm Reason for Visit Admit Date Acid reflux April 17, 2025 12:5 8pm Dysphagia April 17, 2025 12:5 8pm Epigastric pain April 17, 2025 12:5 8pm Cholelithiasis April 17, 2025 12:5 8pm Additional Source Comments Source Comments (unrecognize d section and content) In the event this informatio n is protected by the Federal Confidentiality of Alcohol and Drug Abuse Patient Records regulations: The Federal rules restrict any use of the information to criminally investigate or prosecute any alcohol or drug abuse patient.[facility] (unrecognized sect ion and content) No Status Records FoundNo Status Records Found INFORMATION SOURCE (unrecogn ized section and content) DATE CREATED AUTHOR 11/27/2024 [facility] DATE CREATED AUTHOR AUTHOR'Andrea AYALA 05/15/2025 [facility] Care Teams (unrecognized sec tion and content) Team Status: Active Member Role/Relationship Status Dates No Primary Care Physician Primary Care Provider Active Team Status: Inactive Member Role/Relationship Status Dates No Primary Care Physician Primary Care Provider Active Start: December 12, 2024 End: December 12, 2024 No Primary Care Physician Referring Provider Active Start: December 12, 2024 End: December 12, 2024 Dr. Deon Campo DO Attending Provider Active Start: December 12, 2024 End: December 12, 2024 Team Status: Inactive Member Role/Relationship Status Dates No Primary Care Physician Primary Care Provider Active Start: December 12, 2024 End: December 12, 2024 Dr. Landon Moya MD Attending Provider Active S tart: December 12, 2024 End: December 12, 2024 Team Status: Inactive Member Role/Relationship Status Dates No Primary Care Physician Primary Care Provider Active Start: April 08, 2025 End: April 09, 2025 Dr. Ottoniel Holloway DO Emergency Provider Activ e Start: April 08, 2025 End: April 09, 2025 Team Status: Inactive Member Role/Relationship Status Dates No Primary Care Physician Primary Care Provider Active Start: April 08, 2025 End: April 09, 2025 Dr. Ottoniel Holloway DO Attending Provider Activ e Start: April 08, 2025 End: April 09, 2025 Dr. Ottoniel Holloway DO Emergency Provider Activ e Start: April 08, 2025 End: April 09, 2025 Team Status: Inactive Member Role/Relationship Status Dates No Primary Care Physician Primary Care Provider Active Start: April 17, 2025 End: April 17, 2025 No Primary Care Physician Referring Provider Active Start: April 17, 2025 End: April 17, 2025 Dr. Tamar Pabon MD Attending Provider Active Start: April 17, 2025 End: April 17, 2025 Goals (unrecognized section and content) Goals may be documented in a n alternate sectionGoals may be documented in an alternate section FOR RECORDS PERTAINING TO PATIENTS WHO ARE [...] BE BASED ON THE PRIMARY CLINICAL RECORDS. [facility], [facility]. provides no warranty or guarantee of the accuracy or completeness of information in this document.
[2025-06-11 02:15] LABS: AST(SGOT) 23 U/L (<=37); Alanine Aminotransfer ALT/SGPT 16 U/L (<=46); Albumin, Serum 3.9 g/dL (3.5-5.0); Alkaline Phosphatase 88 U/L (40-129); Anion Gap 9 (5-15); BUN 21 mg/dL (4-19); BUN/Creat Ratio 32.1 RATIO (10-20); Calcium,Total 8.4 mg/dL (7.6-11.0); Carbon Dioxide 23.5 mmol/L (21.0-32.0); Chloride 104 mmol/L (98-108); Estimated Creatinine Clearance 135.91 ml/min (50-250); Globulin 3.1 g/dL (2.2-4.2); Glucose 107 mg/dL (70-99); Lipase 98 U/L (13-75); Potassium 3.4 mmol/L (3.3-5.1); Troponin T High Sensitivity < 6 ng/L (<=22)
[2025-06-11 03:30] VITALS: BP 122/80; PULSE 62; RESP 16; TEMP 36.4; O2SAT 100
[2025-06-11] MEDS: fentaNYL 100 MCG/2 ML Ampul 50 MCG IV (04:01)
[2025-06-11 05:02] VITALS: BP 98/56; PULSE 78; RESP 16; TEMP 36.7; O2SAT 100
[2025-06-11 05:03] VITALS: BP 98/56; PULSE 78; RESP 16; TEMP 36.7; O2SAT 100
--- NOTE | 2025-06-11 06:32 | ED.RN ---
pt returned shortly after being discharged from ED for increased pain. central african speaking. using phone for translation.
--- NOTE | 2025-06-11 06:59 | ED.RN ---
pts eyes closed. opens eyes when name called. states pain is 5/10. instructed can not drive after narcotics. pts states is outside.
[2025-06-11 07:00] VITALS: BP 106/65; PULSE 76; RESP 16; O2SAT 98
== END 2025-06-11 07:06 | disposition home or self-care (01) ==
PROVIDERS: Emergency Provider Student in an Organized Health Care Education/Training Program; Visit Provider Student in an Organized Health Care Education/Training Program
DX: K29.70 Gastritis, unspecified, without bleeding (principal); I10 Essential (primary) hypertension; K21.9 Gastro-esophageal reflux disease without esophagitis
CPT/HCPCS: 74177; 80053; 81001; 83690; 84484; 85025; 93005; 96374; 96375; 99283; Q9967; A4216; J2405